=== PATIENT | female | born 1980 | race Caucasian/White ===

== ENCOUNTER 2023-08-05 09:30 | Outpatient (RCR) | payer MEDICAID, SELFPAY | END 2024-03-01 09:00 | disposition home or self-care (01) | LOC: HO.WCC 09:30 | PROVIDERS: PCP Internal Medicine Geriatric Medicine; Visit Provider Surgery | DX: E11.622 Type 2 diabetes mellitus with other skin ulcer (principal); L97.922 Non-pressure chronic ulcer of unspecified part of left lower leg with fat layer exposed; I87.332 Chronic venous hypertension (idiopathic) with ulcer and inflammation of left lower extremity; L93.0 Discoid lupus erythematosus | CPT/HCPCS: 11042; 11045; 15271; 15272; 15275; 29580; 97597; 99212; Q4101 ==

== ENCOUNTER 2024-03-15 11:51 | Outpatient (REF) | payer MEDICAID, SELFPAY ==
[2024-03-15 14:53] LABS: CT PCR NOT DETECTED (Not Detect.); NG PCR NOT DETECTED (Not Detect.)
[2024-03-20 09:12] LABS: Fentanyl, Ur NEGATIVE; Norfentanyl, Ur NEGATIVE
== END 2024-03-15 11:52 | disposition home or self-care (01) ==
LOC: HO.HHCL 11:51
PROVIDERS: Visit Provider Internal Medicine Geriatric Medicine
DX: F11.20 Opioid dependence, uncomplicated (principal); Z11.3 Encounter for screening for infections with a predominantly sexual mode of transmission
CPT/HCPCS: 0353U; 80353; 80354

== ENCOUNTER 2024-04-17 | Outpatient (REF) | payer MEDICAID, SELFPAY ==
[2024-04-19 12:58] LABS: HPV mRNA E6/E7 Not Detected (Not Detected)
[2024-04-25 13:05] LABS: Trichomonas (NAAT) NOT DETECTED
[2024-04-25 13:06] LABS: C. trachomatis RNA TMA NOT DETECTED; N. gonorrhoeae RNA TMA NOT DETECTED
== END 2024-04-17 00:01 | disposition home or self-care (01) ==
LOC: HO.LNP
PROVIDERS: Visit Provider Advanced Practice Midwife
DX: Z12.4 Encounter for screening for malignant neoplasm of cervix (principal); Z11.3 Encounter for screening for infections with a predominantly sexual mode of transmission; Z11.51 Encounter for screening for human papillomavirus (HPV)
CPT/HCPCS: 87491; 87591; 87624; 87661; 88175

== ENCOUNTER 2024-05-01 13:22 | Outpatient (REF) | payer MEDICAID, SELFPAY ==
--- NOTE | ~2024-05-01 | XR_ITS ---
EXAMINATION: XR CHEST CLINICAL INFORMATION: Shortness of breath. COMPARISON: CXR from 01/14/2012. Abdomen CT from 11/22/2018. TECHNIQUE: 2 views of the chest were obtained. FINDINGS: There is bullous emphysema of the upper lobes. The chronic interstitial disease has a mid to lower lung zone predominance. The small cystic-appearing lucencies correspond to the honeycombing seen in posterior lower lobes on 11/22/2018. Note that it would be difficult to detect any acute infiltrates against the background of the chronic interstitial disease. No evidence of pulmonary mass, overt consolidation or pleural effusion. Cardiac silhouette has normal size and contour. The visualized skeletal structures and the visualized upper abdomen are unremarkable. XR/XR chest 2V IMPRESSION: * Bullous emphysema of the upper lobes. * Chronic interstitial lung disease. Note that it would be difficult to radiographically exclude any acute pneumonitis against the background of the chronic disease.
== END 2024-05-01 13:23 | disposition home or self-care (01) ==
LOC: HO.HHCX 13:22
PROVIDERS: Visit Provider Student in an Organized Health Care Education/Training Program
DX: R06.02 Shortness of breath (principal); J44.9 Chronic obstructive pulmonary disease, unspecified
CPT/HCPCS: 71046

== ENCOUNTER 2024-11-20 12:30 | Outpatient (REF) | payer MEDICAID, SELFPAY ==
--- OUTSIDE RECORDS SUMMARY | 2024-11-20 16:13 | XMS_ITS | Encounter Summary ---
Author Organization [employer] Address [address] [facility] [address]t [place] [address] Care Team Providers Care Nickel Plant Operator Name Role Phone Name, Terence MARIA Primary Care Provider [phone] Reason for Visit * Reason Onset Date Comments VNA Orders 02/26/2023 Vitamin Deficiency 02/26/2023 Pt no show to hospital follow up appointment. Encounter Details Date Type Department Care Team ([facility] st Contact Info) Description 02/26/2023 Telephone [facility] MEDICINE [address] [place], [place] [phone] Name, MD Terence [address] [place], [place] [phone] VNA Orders; Vitamin Deficiency (Pt no show [...] 8:16 AM EDT Tc princess Urrutia at [facility] calling in regards to snf wound care orders. Ghada would like to know if PCP will sign orders due today. Patient was last seen with Dr. Law 07/08/20. Patient does have an upcoming PE appt on 03/09/23. documented in this encounter Plan of Treatment Upcoming Encounters Date Type Department Care Team (Late st Contact Info) Description 11/27/2024 10:45 AM EST Office Visit [facility] MEDICINE [address] [place] [address] Name, MD Terence [address] [place] [address] documented as of this encounter Visit Diagnoses Not on filedocumented in this encounter Care Teams Nickel Plant Operator Relationship Specialty Start Date End Date Name, MD Terence [address] [place] [address] PCP - General Family Medicine 01/13/16 documented as of this encounter
--- OUTSIDE RECORDS SUMMARY | 2024-11-20 16:14 | XMS_ITS | Encounter Summary ---
Author Organization [employer] Address [address] [facility] [address] [place] [address] Care Team Providers Care Brickmason Contractor Name Role Phone Name, Terence MARIA Primary Care Provider [phone] Reason for Visit * Reason Onset Date Comments DME-grab bars , raised toilet seat 10/23/2024 Encounter Details Date Type Department Care Team ([facility] [place] Contact Info) Description 10/23/2024 Telephone [facility] MEDICINE [address] [place], [place] [phone] Alphonse De Luna MA DME-grab bars , [...] please advise them to contact Felicita at [phone]. documented in this encounter Plan of Treatment Upcoming Encounters Date Type Department Care Team (Late st Contact Info) Description 11/27/2024 10:45 AM EST Office Visit [facility] MEDICINE [address] [place] [address] Name, MD Terence [address] [place] [address] documented as of this encounter Visit Diagnoses Not on filedocumented in this encounter Additional Health Concerns Assessment Noted Time PHQ-9 Depression Total Score: 14 024 2:43 PM EST documented as of this encounter Care Teams Brickmason Contractor Relationship Specialty Start Date End Date Name, MD Terence [address] [place] [address] PCP - General Family Medicine 01/13/16 documented as of this encounter
--- OUTSIDE RECORDS SUMMARY | 2024-11-20 16:14 | XMS_ITS | Encounter Summary ---
Author Organization [employer] Address [address] [facility] [address] [place] [address] Care Team Providers Care Braddisher Name Role Phone Name, Terence MARIA Primary Care Provider [phone] Reason for Visit * Reason Onset Date Comments Med Refill 11/04/2023 Encounter Details Date Type Department Care Team ([facility] st Contact Info) Description 11/04/2023 Telephone [facility] MEDICINE [address] [place], [place] [phone] Name, MD Terence [address] [place] [address] Med Refill Social History Tobacco Use Types Packs/Day Years Used Date Smoking Tobacco: Former Cigarettes Smokeless Tobacco: Never Depression Answer Date Recorded Patient Health Questionnaire-9 Score 0 03/09/2023 Housing Stability Answer Date Recorded What is your housing situation today? I do not have housing (Staying with others, in a hotel, in a longterm, living outside on the street, on a [...] 8:47 AM EST T/C to pt. Through [employer] id - [id number] to schedule apt. No answer. LVM to call back [phone]. * Telephone Encounter - Adrienne Olivia LPN [...] 40 MG tablet To be sent to: [facility]/pharmacy #[id number] documented in this encounter Plan of Treatment Upcoming Encounters Date Type Department Care Team (Late st Contact Info) Description 11/27/2024 10:45 AM EST Office Visit [facility] MEDICINE [address] [place] [address] Name, MD Terence [address] [place] [address] documented as of this encounter Visit Diagnoses Not on filedocumented in this encounter Additional Health Concerns Assessment Noted Time PHQ-9 Depression Total Score: 0 03/09/20 23 2:42 PM EDT documented as of this encounter Care Teams Braddisher Relationship Specialty Start Date End Date Name, [place] [address] PCP - General Family Medicine 01/13/16 documented as of this encounter
--- OUTSIDE RECORDS SUMMARY | 2024-11-20 16:14 | XMS_ITS | Encounter Summary ---
Author Organization [employer] Address [address] [facility] [address] [place] [address] Care Team Providers Care Commercial Litigation Paralegal Name Role Phone Name, Terence MARIA Primary Care Provider [phone] Encounter Details Date Type Department Care Team (Late st Contact Info) Description 10/27/2024 Refill [facility] MEDICINE [address] [place], [place] [phone] Magdalene Gonzalez, coin counter and wrapper pain syndrome Social History Tobacco Use Types [...] a wound on her leg that her IMAGING TECHNOLOGIST takes care of. Pt denies current drainage, redness, heat, or swelling. Reports her IMAGING TECHNOLOGIST monitors for infection and changes the dressing [...] for review. Advised pt to go to [facility] for any redness, heat, swelling, odor, abnormal drainage from wound or for any urgent needs. Pt verbalized understanding and reports no further questions or concerns at this time. documented in this encounter Plan of Treatment Upcoming Encounters Date Type Department Care Team (Late st Contact Info) Description 11/27/2024 10:45 AM EST Office Visit [facility] MEDICINE [address] [place] [address] Name, MD Terence [address] [place] [address] documented as of this encounter Visit Diagnoses Diagnosis Chronic pain syndrome documented in this encounter Additional Health Concerns Assessment Noted Time PHQ-9 Depression Total Score: 14 024 2:43 PM EST documented as of this encounter Care Teams Commercial Litigation Paralegal Relationship Specialty Start Date End Date Name, MD Terence [address] [place] [address] PCP - General Family Medicine 01/13/16 documented as of this encounter
--- OUTSIDE RECORDS SUMMARY | 2024-11-20 16:14 | XMS_ITS | Encounter Summary ---
Author Organization [employer] Address [address] [place] [address] Care Team Providers Care Mail List Processor Name Role Phone Name, Terence MARIA Primary Care Provider [phone] Encounter Details Date Type Department Care Team ([facility] st Contact Info) Description 08/30/2023 Telephone [facility] MEDICINE [address] [place], [place] [phone] Name, MD Terence [address] [place], [place] [phone] Social History Tobacco Use Types Packs/Day Years Used Date Smoking Tobacco: Former Cigarettes Smokeless Tobacco: Never Depression Answer Date Recorded Patient Health Questionnaire-9 Score 0 03/09/2023 Housing Stability Answer Date Recorded What is your housing situation today? I do not have housing (Staying with others, in a hotel, in a chcf, living outside on the street, on a [...] 03/09 PE notes to be faxed to [phone]. States she faxed a release form to medical records and has not received anything back. Any questions, please contact yumiko at [phone] documented in this encounter Plan of Treatment Upcoming Encounters Date Type Department Care Team (Late st Contact Info) Description 11/27/2024 10:45 AM EST Office Visit [facility] MEDICINE [address] [place] [address] Name, MD Terence [address] [place] [address] documented as of this encounter Visit Diagnoses Not on filedocumented in this encounter Additional Health Concerns Assessment Noted Time PHQ-9 Depression Total Score: 0 03/09/20 2:42 PM EDT documented as of this encounter Care Teams Mail List Processor Relationship Specialty Start Date End Date Name, MD Terence [address] [place] [address] PCP - General Family Medicine 01/13/16 documented as of this encounter
--- OUTSIDE RECORDS SUMMARY | 2024-11-20 16:14 | XMS_ITS | Clinical Summary ---
Author Organization [employer] Address [address] [facility] 7t [place] [address] Care Team Providers Care Product Sales Engineer Name Role Phone Name, Terence MARIA Primary Care Provider [phone] Allergies No known active allergies Medications * [...] Type Department Care Team Description 11/07/[address] [address] Terence Law MD Durable Medical Equipment 10/27/[address] [address] Magdalene Gonzalez RN Chronic pain syndrome 10/25/[address] [address] Terence Law MD Call Back Request 10/25/[address] [address] Terence Law MD 10/23/[address] [address] Alphonse De Luna MA DME-grab bars , raised toilet seat 10/09/[address] [address] Alphonse De Luna MA Dme-grab bars, rasied toilet 10/02/[address] [address] Alphonse De Luna MA Nov Recall\ from [...] Description 11/27/2024 10:45 AM EST Office Visit [facility] [address] [place] [address] Name, MD Terence Kemar [facility] [place] [address] Health Maintenance Due Date Last Done Comments [...] (04/17/2024 11:13 AM EDT) HPV 16 RNA [facility] HPV 18/45 RNA [facility] HPV nRNA E6/E7 Not Detected Not Detected [facility] Comment:Methodology: Transcr iption-Mediated AmplificationThis assay detects E6/E7 viral messenger RNA (mRNA) from 14high-risk HPV types (16,18,31,33,35,39,45,51,52,56,58,59,66,68).Cervical sources are required for HPV testing.If a vaginal source from a patient who has had atotal hysterectomy with removal of cervix wassubmitted, please contact the testing laboratoryfor alternative testing options.For additional information, please refer tohttp://education.HD Fantasy Football/faq/JNQ536m0(This link if provided for information/educational purposes only.)THIS TEST WAS PERFORMED AT:[employer] [place] [phone] DENT MD SOURCE: SEE NOTE [facility] Comment:Cervix Report Status: [facility] Clinical Information: SEE NOTE [facility] Comment:ROUTINE LMP: SEE NOTE [facility] Comment:NONE GIVEN Prev. PAP: SEE NOTE [facility] Comment:NONE GIVEN Prev. BX: SEE NOTE [facility] Comment:NONE GIVEN Statement Of Adequacy: SEE NOTE [facility] Comment:Satisfactory for flores luation.Endocervical/transformation zone componentpresent. General Categorization: [facility] Interpretation/Result: SEE NOTE [facility] Comment:Cytology Results: Ne gative for intraepitheliallesion or malignancy. Cytology Comment SEE NOTE [facility] Comment:This Pap test has be en evaluated with computerassisted technology. Windows Software Developer: SEE NOTE [facility] Comment:YP, CT(ASCP)CT scree kaela location: [place] [address] Review Windows Software Developer: [facility] Pathologist [facility] PAP Infection SEE NOTE [facility] Comment:Shift in vaginal leonard ra suggestive of bacterialvaginosis. See Note SEE NOTE [facility] Comment:EXPLANATORY NOTE:The Pap is a screening test for cervical cancer. It isnot a diagnostic test and is subject to false negativeand false positive results. It is most reliable when asatisfactory sample, regularly obtained, is submittedwith relevant clinical findings and history, and whenthe Pap result is evaluated along with historic andcurrent clinical information. 04/17/2024 11:1 3 AM EDT 04/17/2024 4:19 PM EDT Narrative [facility] - 04/25/2024 1:06 PM EDT SEE SCANNED RESULTS IN EMRRCEREVIX us Arin Palomino CNM LAB PATHOLOGY ORDERABLES Final Result [facility] [address] [place] [address] [phone] from Last 3 Months or Most Recently Relevant to Health Maintenance Insurance [facility] C3 * Guarantor: Maddie Dobbins Account Type Relation to Patient Date of Phone Billing Address Personal/Family Self [address] [place] Care Teams Product Sales Engineer Relationship Specialty Start Date End Date Name, MD Terence [address] [place] [address] [place] [address] PCP - General Family Medicine 01/13/16
--- OUTSIDE RECORDS SUMMARY | 2024-11-20 16:14 | XMS_ITS | Encounter Summary ---
Author Organization [employer] Address [address] 7t [place] [address] Care Team Providers Care Boat Loader Helper Name Role Phone Name, Terence MARIA Primary Care Provider [phone] Encounter Details Date Type Department Care Team ([facility] st Contact Info) Description 04/21/2024 Orders Only [facility] [address] [place], [place] [phone] Arin Palomino CN [address] [place], [place] [phone] Social History Tobacco Use Types Packs/Day Years [...] t he electric, gas, oil or water [employer] threatened to shut off services in your [...] Description 11/27/2024 10:45 AM EST Office Visit [facility] [address] [place] [address] Name, MD Terence [address] [place] [address] documented as of this encounter Visit Diagnoses Not on filedocumented in this encounter Additional Health Concerns Assessment Noted Time PHQ-9 Depression Total Score: 14 024 2:43 PM EST documented as of this encounter Care Teams Boat Loader Helper Relationship Specialty Start Date End Date Name, MD Terence [address] [place] [address] PCP - General Family Medicine 01/13/16 documented as of this encounter
--- OUTSIDE RECORDS SUMMARY | 2024-11-20 16:14 | XMS_ITS | Encounter Summary ---
Author Organization [employer] [facility] Address [address] [place] [address] 7 [place] [address] Care Team Providers Care Desk Monitor Name Role Phone Name, Terence MARIA Primary Care Provider [phone] Reason for Visit * Reason Comments Med Refill Encounter Details Date Type Department Care Team ([facility] Contact Info) Description 12/21/2022 Refill [facility] [address] [place] [address] NameTerence MD [address] [place] [address] Anxiety Social History Tobacco Use Types Packs/Day [...] Upcoming Encounters Date Type Department Care Team ([facility] Contact Info) Description 11/27/2024 10:45 AM EST Office Visit [facility] [address] [place] [address] Terence Law MD [address] [place] [address] documented as of this encounter Visit Diagnoses Diagnosis Anxiety Anxiety state, unspecified documented in this encounter Care Teams Desk Monitor Relationship Specialty Start Date End Date Terence Law MD [address] [place] [address] PCP - General Family Medicine 01/13/16 documented as of this encounter
--- OUTSIDE RECORDS SUMMARY | 2024-11-20 16:14 | XMS_ITS | Encounter Summary ---
Author Organization [employer] Address [address] [facility] 7t [place] [address] Care Team Providers Care Rn Orthopedic Name Role Phone Name, Terence MARIA Primary Care Provider [phone] Reason for Visit * Reason Onset Date Comments Call Back Request 10/25/2024 Encounter Details Date Type Department Care Team ([facility] Contact Info) Description 10/25/2024 Telephone [facility] [address] [place], [place] [phone] Name, MD Terence [address] [place], [place] [phone] Call Back Request Social History Tobacco Use [...] PM EST Call returned to pt via [employer] #[id number] for status check based on message below. No answer, v/m left to return call to [place] team nurses. * Telephone Encounter - Martín Junior - 10/25/2024 11:58 AM EST Tc from pt requesting call back to discuss current condition stating she feels there might be more going on. Pt stated no immediate concerns would like to speak with someone. Please contact pt at [phone]. (Kyrgyz Speaker) documented in this encounter Plan of Treatment Upcoming Encounters Date Type Department Care Team (Late st Contact Info) Description 11/27/2024 10:45 AM EST Office Visit [facility] [address] [place] [address] Name, MD Terence [address] [place] [address] documented as of this encounter Visit Diagnoses Not on filedocumented in this encounter Additional Health Concerns Assessment Noted Time PHQ-9 Depression Total Score: 14 024 2:43 PM EST documented as of this encounter Care Teams Rn Orthopedic Relationship Specialty Start Date End Date Name, MD Terence [address] [place] [address] PCP - General Family Medicine 01/13/16 documented as of this encounter
--- OUTSIDE RECORDS SUMMARY | 2024-11-20 16:14 | XMS_ITS | Encounter Summary ---
Author Organization [employer] Address [address] [facility] 7t [place] [address] Care Team Providers Care Temporary Staff Accountant Name Role Phone Name, Terence MARIA Primary Care Provider [phone] Reason for Visit * Reason Onset Date Comments Medication Question 12/16/2023 Encounter Details Date Type Department Care Team ([facility] st Contact Info) Description 12/16/2023 Telephone [facility] [address] [place], [place] [phone] Name, MD Terence [address] [place], [place] [phone] Medication Question Social History Tobacco Use Types [...] t he electric, gas, oil or water [employer] threatened to shut off services in your [...] T/C to pt. To inform pt. Through [employer] interpreters id - [id number] to inform that PCP has to see her to give clonazepam medication. No answer. LVM to call back on [phone]. * Telephone Encounter - Shyam Anderson RN - 12/17/2023 2:45 PM EST T/C to pt. Through Proper Clothers id - [id number] for below message, pt. States she used [...] clonazepam and is requesting status on med. Water Hauler advised pt is scheduled for 01/10/24 to further discuss with PCP however pt stated appt is too far out. Please contact at [phone] documented in this encounter Plan of Treatment Upcoming Encounters Date Type Department Care Team (Late st Contact Info) Description 11/27/2024 10:45 AM EST Office Visit [facility] [address] [place] [address] Name, MD Terence [address] [place] [address] documented as of this encounter Visit Diagnoses Not on filedocumented in this encounter Additional Health Concerns Assessment Noted Time PHQ-9 Depression Total Score: 14 024 2:43 PM EST documented as of this encounter Care Teams Temporary Staff Accountant Relationship Specialty Start Date End Date Name, MD Terence [address] [place] [address] PCP - General Family Medicine 01/13/16 documented as of this encounter
--- OUTSIDE RECORDS SUMMARY | 2024-11-20 16:14 | XMS_ITS | Encounter Summary ---
Author Organization [employer] [facility] Address [address] [place] [address] [place] [address] Care Team Providers Care Industrial Technician Name Role Phone Name, Terence MARIA Primary Care Provider [phone] Reason for Visit * Reason Comments Med Refill Encounter Details Date Type Department Care Team ([facility] Contact Info) Description 07/09/2023 Refill [facility] [address] [place] [phone] Cony Rodríguez FNP [address] [place] [address] Dept [place] [address] Anxiety Social History Tobacco Use Types Packs/Day [...] Office Visit [facility] [address] [place] [address] [phone] Name, MD Terence [address] [place] [address] documented as of this encounter Visit Diagnoses Diagnosis Anxiety Anxiety state, unspecified documented in this encounter Additional Health Concerns Assessment Noted Time PHQ-9 Depression Total Score: 0 03/09/20 2:42 PM EDT documented as of this encounter Care Teams Industrial Technician Relationship Specialty Start Date End Date Name, MD Terence [address] [place] [address] PCP - General Family Medicine 01/13/16 documented as of this encounter
--- OUTSIDE RECORDS SUMMARY | 2024-11-20 16:14 | XMS_ITS | Encounter Summary ---
Author Organization [employer] Address [address] [facility] [facility] [address] 7t [place] [address] Care Team Providers Care Therapeutic Recreation Assistant Name Role Phone Name, Terence MARIA Primary Care Provider [phone] Encounter Details Date Type Department Care Team (Late st Contact Info) Description 11/08/2023 Orders Only [facility] [address] [place], [place] [phone] Ada Bridges RN Uncomplicated opioid dependence (CMS/HCC) Social History Tobacco Use Types Packs/Day Years Used Date Smoking Tobacco: Every Day Cigarettes Smokeless Tobacco: Never Depression Answer Date Recorded Patient Health Questionnaire-9 Score 0 03/09/2023 Housing Stability Answer Date Recorded What is your housing situation today? I do not have housing (Staying with others, in a hotel, in a snf, living outside on the street, on a [...] Description 11/27/2024 10:45 AM EST Office Visit [facility] [address] [place] [address] Name, MD Terence [address] [place] [address] Scheduled Orders Name Type Priority Associated Diagnoses [...] with Reflexes Lab Routine Uncomplicated opioid dependence ([facility]) Expected: 11/08/2023 (Approximate), Expires: 11/08/2024 Syphilis Screen Lab Routine Uncomplicated opioid dependence ([facility]) Expected: 11/08/2023 (Approximate), Expires: 11/08/2024 T-SPOT??.TB Lab Routine Uncomplicated opioid dependence ([facility]) Expected: 11/08/2023 (Approximate), Expires: 11/08/2024 documented as of this encounter Procedures Procedure Name Priority Date/Time Associated Diagnosis Comments THINPREP IMAGING PAP AND HPV MRNA E6/E7 WITH REFLEX TO HPV 16,18/45 Routine 04/17/2024 11:13 AM EDT Uncomplicated opioid dependence ([facility]) documented in this encounter Results * ThinPrep Imaging Pap and HPV mRNA E6/E7 with Reflex to HPV 16,18/45 (04/17/2024 11:13 AM EDT) HPV 16 RNA [facility] HPV 18/45 RNA [facility] HPV nRNA E6/E7 Not Detected Not Detected [facility] Comment:Methodology: Transcr iption-Mediated AmplificationThis assay detects E6/E7 viral messenger RNA (mRNA) from 14high-risk HPV types (16,18,31,33,35,39,45,51,52,56,58,59,66,68).Cervical sources are required for HPV testing.If a vaginal source from a patient who has had atotal hysterectomy with removal of cervix wassubmitted, please contact the testing laboratoryfor alternative testing options.For additional information, please refer tohttp://education.Q Design/faq/SBL910h6(This link if provided for information/educational purposes only.)THIS TEST WAS PERFORMED AT:[employer] [place] [phone] DENT MD SOURCE: SEE NOTE [facility] Comment:Cervix Report Status: [facility] Clinical Information: SEE NOTE [facility] Comment:ROUTINE LMP: SEE NOTE [facility] Comment:NONE GIVEN Prev. PAP: SEE NOTE [facility] Comment:NONE GIVEN Prev. BX: SEE NOTE [facility] Comment:NONE GIVEN Statement Of Adequacy: SEE NOTE [facility] Comment:Satisfactory for flores luation.Endocervical/transformation zone componentpresent. General Categorization: [facility] Interpretation/Result: SEE NOTE [facility] Comment:Cytology Results: Ne gative for intraepitheliallesion or malignancy. Cytology Comment SEE NOTE [facility] Comment:This Pap test has be en evaluated with computerassisted technology. Internist: SEE NOTE [facility] Comment:YP, CT(ASCP)CT scree kaela location: [place] [address] Review Internist: [facility] Pathologist [facility] PAP Infection SEE NOTE [facility] Comment:Shift in vaginal leonard ra suggestive of bacterialvaginosis. See Note SEE NOTE [facility] Comment:EXPLANATORY NOTE:The Pap is a [...] AM EDT 04/17/2024 4:19 PM EDT Narrative [facility] - 04/25/2024 1:06 PM EDT SEE SCANNED RESULTS IN EMRRCEREVIX us Arin FONTANA LAB PATHOLOGY ORDERABLES Final Result [facility] [address] [place] [address] [phone] documented in this encounter Visit Diagnoses Diagnosis Uncomplicated opioid dependence (CMS/HCC) documented in this encounter Additional Health Concerns Assessment Noted Time PHQ-9 Depression Total Score: 0 03/09/20 23 2:42 PM EDT documented as of this encounter Care Teams Therapeutic Recreation Assistant Relationship Specialty Start Date End Date Name, MD Terence [address] [place] [address] PCP - General Family Medicine 01/13/16 documented as of this encounter
--- OUTSIDE RECORDS SUMMARY | 2024-11-20 16:14 | XMS_ITS | Encounter Summary ---
Author Organization [employer] Address [address] [facility] 7t [place] [address] Care Team Providers Care Fire Extinguisher Repairer Inspector Name Role Phone Name, Terence MARIA Primary Care Provider [phone] Reason for Visit * Reason Onset Date Comments Durable Medical Equipment 11/07/2024 Encounter Details Date Type Department Care Team ([facility] st Contact Info) Description 11/07/2024 Telephone [facility] [address] [place], [place] [phone] Name, MD Terence [address] [place], [place] [phone] Durable Medical Equipment Social History Tobacco Use [...] 11/27/2024 10:45 AM EST Office Visit [facility]INE [address] [place] [address] Name, MD Terence [address] [place] [address] documented as of this encounter Visit Diagnoses Not on filedocumented in this encounter Additional Health Concerns Assessment Noted Time PHQ-9 Depression Total Score: 14 024 2:43 PM EST documented as of this encounter Care Teams Fire Extinguisher Repairer Inspector Relationship Specialty Start Date End Date NameTerence MD [address] [place] [address] PCP - General Family Medicine 01/13/16 documented as of this encounter
--- OUTSIDE RECORDS SUMMARY | 2024-11-20 16:14 | XMS_ITS | Encounter Summary ---
Author Organization [employer] Address [address] [facility] [address] 7t [place] [address] Care Team Providers Care Equipment Manager Name Role Phone Name, Terence MARIA Primary Care Provider [phone] Encounter Details Date Type Department Care Team ([facility] st Contact Info) Description 10/25/2024 Telephone [facility] [address] [place], [place] [phone] Name, MD Terence [address] [place], [place] [phone] Social History Tobacco Use Types Packs/Day Years [...] Miscellaneous Notes * Telephone Encounter - Puneet Chowdhury RN - 10/25/2024 11:30 AM EST DME for bath tub wall rail from [employer] and willy placed on PCP desk for signature. documented in this encounter Plan of Treatment Upcoming Encounters Date Type Department Care Team (Late st Contact Info) Description 11/27/2024 10:45 AM EST Office Visit [facility] [address] [place] [address] Name, MD Terence [address] [place] [address] documented as of this encounter Visit Diagnoses Not on filedocumented in this encounter Additional Health Concerns Assessment Noted Time PHQ-9 Depression Total Score: 14 024 2:43 PM EST documented as of this encounter Care Teams Equipment Manager Relationship Specialty Start Date End Date Name, MD Terence [address] [place] [address] PCP - General Family Medicine 01/13/16 documented as of this encounter
[2024-11-21 01:27] LABS: CT PCR NOT DETECTED (Not Detect.); NG PCR NOT DETECTED (Not Detect.)
== END 2024-11-20 12:31 | disposition home or self-care (01) ==
LOC: HO.LNP 12:30
PROVIDERS: PCP Internal Medicine Geriatric Medicine; Visit Provider Obstetrics & Gynecology
DX: N93.9 Abnormal uterine and vaginal bleeding, unspecified (principal); L91.8 Other hypertrophic disorders of the skin
CPT/HCPCS: 87491; 87591; 99202

== ENCOUNTER 2024-11-20 12:30 | Outpatient (AMB) | payer MEDICAID, SELFPAY ==
--- NOTE | 2024-11-20 12:39 | A.OFFVIS_ITS ---
Vital Signs 11/20/24 12:47 Height 5 ft 3 in Weight 186 lb BMI 32.9 BP 126/72 Intake Visit Reasons: Labial Skin Tag/Referral/2nd appt Transfer Station Operator: Transfer Station Operator Present (Santa) Accompanied by: Self / Same As Patient Allergies No Known Allergies [NKA] Allergy (Verified 11/20/24 12:45) HPI Comments Details: Presenting referred from [facility] regarding left labia minora skin tag for excisions since it is causing irritation to the patient .In addition, the patient is complaining of irregular menstrual cycles with the last few months Last co testing was in 05/10 was negative No previous screening mammogram [facility] Medical History Arthritis Lupus (systemic lupus erythematosus) Raynaud disease Family History Sister Breast cancer Female Reproductive History Menstrual Age of Menarche: 13 Date of last menstrual period: 11/19/24 Total pregnancies: 5 Full term: 4 Review of Systems Const All systems reviewed & are unremarkable except as noted in HPI and below Card Reports as per HPI Resp Reports as per HPI GI Reports as per HPI and Reports no additional complaints Reports as per HPI Physical Exam Vital Signs: Last Vital Signs BP 126/72 11/20/24 12:47 BMI result Body Mass Index 32.9 Const General: cooperative, healthy appearing and comfortable Chest Chest palpation & inspection: normal inspection of the chest and normal palpation of entire chest wall Breast/axilla inspection: normal inspection of the breasts and normal inspection of the axillae Breast/axilla palpation: normal palpation of the breasts, normal palpation of the axillae and no axillary lymphadenopathy Resp Effort & Inspection: normal respiratory effort Auscultation: clear to auscultation bilaterally Percussion: percussion normal Cardio Palpation: normal PMI Rate: regular rate Rhythm: regular rhythm Heart sounds: no murmurs and no rubs Peripheral pulses: Peripheral pulses 2+ throughout GI Inspection: Yes normal to inspection Palpation (GI): Soft to palpation, nontender, no guarding, not rigid and No hepatosplenomegaly present Percussion: Yes normal to percussion Auscultation: normal bowel sounds Rectal Exam - Female: deferred General: Yes bladder normal to palpation External Female Exam: lesion (Left labia minora skin tag) Speculum Exam - Vagina: normal appearance of the vagina, normal palpation, normal vaginal discharge and not erythematous Speculum Exam - Cervix: normal appearance of the cervix and normal palpation Bimanual exam- vagina & uterus: normal bimanual exam, normal palpation, uterine size normal, bladder normal to palpation, consistency normal and normal palpation Bimanual Exam- Adnexa, other: normal adnexae, no masses and no tenderness Assessment & Plan Assessment & Plan (1) Abnormal uterine bleeding (AUB): Code(s): N93.9 - Abnormal uterine and vaginal bleeding, unspecified Category: Medical Plan: Screening mammogram, GC and chlamydia taken CBC, TSH, HCG, FSH/LH and pelvic ultrasound ordered. Discussed with the patient the different causes of abnormal bleeding including thyroid disorders, uterine and ovarian pathology, endometrial hyperplasia, carcinoma and other potential causes. Discussed with the patient the work up including CBC (to r/o anemia), TSH, FSH/LH, pelvic Ultrasound, endometrial biopsy to r/o endometrial pathology. All questions answered and the patient verbalized understanding. Instructed the patient to schedule an appointment for an endometrial biopsy in 2 weeks. (2) Skin tag: Comment: Left labia minora Code(s): L91.8 - Other hypertrophic disorders of the skin Category: Medical Plan: Discussed with the patient the finding on pelvic exam, skin tag of left labia minora, the patient is requesting to have it excised. Instructions given the patient to schedule an appointment for excision of skin tag of left labia minora. All questions answered, the patient verbalized understanding. Orders: Orders HCG Quantitative Today N93.9 - Abnormal uterine and vaginal bleeding, unspecified Follicle Stimulating Hormone Today N93.9 - Abnormal uterine and vaginal bleeding, unspecified Complete Blood Count no Diff Today N93.9 - Abnormal uterine and vaginal bleeding, unspecified US pelvic and transvaginal Today N93.9 - Abnormal uterine and vaginal bleeding, unspecified TSH reflex Free T4 Today N93.9 - Abnormal uterine and vaginal bleeding, unsp ecified MM screening mammo BI Today Z12.31 - Encounter for screening mammogram for malignant neoplasm of breast Lutenizing Hormone Today N93.9 - Abnormal uterine and vaginal bleeding, unspecified Coding Level of Care Code New Pt Level 3 (09936) Diagnoses Abnormal uterine bleeding (AUB) N93.9 Skin tag L91.8
[2024-11-20 12:47] VITALS: BP 126/72; BMI 32.9
--- OUTSIDE RECORDS SUMMARY | 2024-11-20 13:50 | XMS_ITS | Encounter Summary ---
Author Organization [facility] Address [address] [place] [address] [place] [address] Care Team Providers Care Bakery Assistant Name Role Phone Name, Terence MARIA Primary Care Provider [phone] Reason for Visit * Reason Comments Med Refill Encounter Details Date Type Department Care Team ([facility] Contact Info) Description 07/09/2023 Refill [facility] MED[facility] [address] [place] [address] [phone] Cony Rodríguez FNP [address] [place] [address] [place] [address] Anxiety Social History Tobacco Use Types Packs/Day Years Used Date Smoking Tobacco: Former Cigarettes Smokeless Tobacco: Never Depression Answer Date Recorded Patient Health Questionnaire-9 Score 0 03/09/2023 Depression Answer Date Recorded Patient Health Questionnaire-2 Score 0 03/09/2023 Comments Unknown Sex and Gender Information Value Date Recorded Sex Assigned at Female 08/17/2022 10:14 AM EDT Legal Sex Female 10:14 AM EDT Gender Identity Female 08/17/2022 10:14 AM EDT Sexual Orientation Straight 08/17/2022 10 :14 AM EDT documented as of this encounter Plan of Treatment Upcoming Encounters Date Type Department Care Team (Late Contact Info) Description 11/27/2024 10:45 AM EST Office Visit [facility] [address] [place] [address] [phone] Name, MD Terence [address] [place] [address] documented as of this encounter Visit Diagnoses Diagnosis Anxiety Anxiety state, unspecified documented in this encounter Additional Health Concerns Assessment Noted Time PHQ-9 Depression Total Score: 0 03/09/20 2:42 PM EDT documented as of this encounter Care Teams Bakery Assistant Relationship Specialty Start Date End Date Name, MD Terence [address] [place] [address] PCP - General Family Medicine 01/13/16 documented as of this encounter
--- OUTSIDE RECORDS SUMMARY | 2024-11-20 13:50 | XMS_ITS | Encounter Summary ---
Author Organization [employer] Address [address] [facility] [address] 7t [place] [address] Care Team Providers Care Cement Worker Name Role Phone Name, Terence MARIA Primary Care Provider [phone] Encounter Details Date Type Department Care Team ([facility] st Contact Info) Description 08/30/2023 Telephone [facility] [address] [place], [place] [phone] Name, MD Terence [address] [place], [place] [phone] Social History Tobacco Use Types Packs/Day Years Used Date Smoking Tobacco: Former Cigarettes Smokeless Tobacco: Never Depression Answer Date Recorded Patient Health Questionnaire-9 Score 0 03/09/2023 Housing Stability Answer Date Recorded What is your housing situation today? I do not have housing (Staying with others, in a hotel, in a residential, living outside on the street, on a beach, in a car, or in a park 07/26/[address] you li ve. Do you have problems with any of the following? Pests such as bugs, ants, or mice 07/26/2023 Food Insecurity Answer Date Recorded Within the past 12 months, y ou worried that your food would run out before you got money to buy more: Often true 2023 Within the past 12 months,th e food you bought just didn't last and you didn't have enough money to get more: Often true Transportation Answer Date Recorded In the past 12 months, has l ack of transportation kept you from medical appts, meetings, work or from getting things needed for daily living? No 2023 Utilities Answer Date Recorded In the past 12 months, has t he electric, gas, oil or water company threatened to shut off services in your home? No 2023 Depression Answer Date Recorded Patient Health Questionnaire-2 Score 0 03/09/2023 Comments Unknown Sex and Gender Information Value Date Recorded Sex Assigned at Female 08/17/2022 10:14 AM EDT Legal Sex Female 10:14 AM EDT Gender Identity Female 08/17/2022 10:14 AM EDT Sexual Orientation Straight 08/17/2022 10 :14 AM EDT documented as of this encounter Miscellaneous Notes * Telephone Encounter - Collette Lopez - 08/31/2023 3:57 PM EST Tc from [facility] requesting status on message below. * Telephone Encounter - Courtney Walker - 08/30/2023 2:59 PM EST Tc from [facility] with [facility] requesting 07/27 OV notes and 03/09 PE notes to be faxed to [phone]. States she faxed a release form to medical records and has not received anything back. Any questions, please contact [facility] at [phone] documented in this encounter Plan of Treatment Upcoming Encounters Date Type Department Care Team (Late st Contact Info) Description 11/27/2024 10:45 AM EST Office Visit [facility] [address] [place] [phone] Name, MD Terence [address] [place] [address] documented as of this encounter Visit Diagnoses Not on filedocumented in this encounter Additional Health Concerns Assessment Noted Time PHQ-9 Depression Total Score: 0 03/09/20 2:42 PM EDT documented as of this encounter Care Teams Cement Worker Relationship Specialty Start Date End Date Name, MD Terence [address] [place] [phone] PCP - General Family Medicine 01/13/16 documented as of this encounter
--- OUTSIDE RECORDS SUMMARY | 2024-11-20 13:50 | XMS_ITS | Encounter Summary ---
Author Organization [employer] Address 75 [facility] 7t [place] [address] Care Team Providers Care Financial Reporting Director Name Role Phone Name, Terence MARIA Primary Care Provider [phone] Reason for Visit * Reason Onset Date Comments [facility] Orders 02/26/2023 Vitamin Deficiency 02/26/2023 Pt no show to hospital follow up appointment. Encounter Details Date Type Department Care Team ([facility] st Contact Info) Description 02/26/2023 Telephone [facility] 230 [place], [place] [phone] Name, MD Terence [address] [place], [place] [phone] [facility] Orders; Vitamin Deficiency (Pt no show to hospital follow up appointment.) Social History Tobacco Use Types Packs/Day Years Used Date Smoking Tobacco: Never Assessed Comments Unknown Sex and Gender Information Value Date Recorded Sex Assigned at Female 08/17/2022 10:14 AM EDT Legal Sex Female 10:14 AM EDT Gender Identity Female 08/17/2022 10:14 AM EDT Sexual Orientation Straight 08/17/2022 10 :14 AM EDT documented as of this encounter Miscellaneous Notes * Telephone Encounter - Linnea Salcedo - 03/05/2023 2:42 PM EDT Pt no show to hospital follow up appointment. * Telephone Encounter - Ryanne Pool - 02/26/2023 8:16 AM EDT Tc princess Urrutia at [facility] calling in regards to [facility] wound care orders. Ghada would like to know if PCP will sign orders due today. Patient was last seen with Dr. Law 07/08/20. Patient does have an upcoming PE appt on 03/09/23. documented in this encounter Plan of Treatment Upcoming Encounters Date Type Department Care Team (Late st Contact Info) Description 11/27/2024 10:45 AM EST Office Visit [facility] [address] [place] [address] Name, MD Terence [address] [place] [address] documented as of this encounter Visit Diagnoses Not on filedocumented in this encounter Care Teams Financial Reporting Director Relationship Specialty Start Date End Date Name, MD Terence [address] [place] [address] PCP - General Family Medicine 01/13/16 documented as of this encounter
--- OUTSIDE RECORDS SUMMARY | 2024-11-20 13:50 | XMS_ITS | Encounter Summary ---
Author Organization [employer] Address 75 [facility] 7t [place] [address] Care Team Providers Care User Acceptance Tester Name Role Phone Name, Terence MARIA Primary Care Provider [phone] Reason for Visit * Reason Onset Date Comments Durable Medical Equipment 11/07/2024 Encounter Details Date Type Department Care Team ([facility] st Contact Info) Description 11/07/2024 Telephone [facility] [address] [place], [place] [phone] Name, MD Terence [address] [place], [place] [phone] Durable Medical Equipment Social History Tobacco Use Types Packs/Day Years Used Date Smoking Tobacco: Every Day Cigarettes Smokeless Tobacco: Never Depression Answer Date Recorded Patient Health Questionnaire-9 Score 14 11/25/2023 Patient Health Questionnaire-9 Score 14 11/25/2023 Last PHQ-9: Questionnaire Data Not on file 0 11/25/2023 Housing Stability Answer Date Recorded What is your housing situation today? I have jo ann acevedo 01/03/[address] you li ve. Do you have problems with any of the following? None of the above 01/03/2024 Food Insecurity Answer Date Recorded Within the past 12 months, y ou worried that your food would run out before you got money to buy more: Never True 01/03/2024 Within the past 12 months,th e food you bought just didn't last and you didn't have enough money to get more: Never True Transportation Answer Date Recorded In the past [...] Answer Date Recorded Patient Health Questionnaire-2 Score 6 11/25/2023 Comments No Sex and Gender Information Value Date Recorded Sex Assigned at Female 08/17/2022 10:14 AM EDT Legal Sex Female 10:14 AM EDT Gender Identity Female 08/17/2022 10:14 AM EDT Sexual Orientation Straight 08/17/2022 10 :14 AM EDT documented as of this encounter Miscellaneous Notes * Telephone Encounter - Patricia Godoy - 11/09/2024 11:15 AM EST Confirmation of order form signed and faxed to [employer] Fax confirmation received and sent to scan. * Telephone Encounter - Patricia Godoy - 11/07/2024 10:06 AM EST Confirmation of order for raised toilet seat and grab bar from [employer] placed on PCP desk for signature. documented in this encounter Plan of Treatment Upcoming Encounters Date Type Department Care Team (Late st Contact Info) Description 11/27/2024 10:45 AM EST Office Visit [facility] [address] [place] [address] Name, MD Terence [address] [place] [address] documented as of this encounter Visit Diagnoses Not on filedocumented in this encounter Additional Health Concerns Assessment Noted Time PHQ-9 Depression Total Score: 14 024 2:43 PM EST documented as of this encounter Care Teams User Acceptance Tester Relationship Specialty Start Date End Date NameTerence MD [address] [place] [address] PCP - General Family Medicine 01/13/16 documented as of this encounter
--- OUTSIDE RECORDS SUMMARY | 2024-11-20 13:50 | XMS_ITS | Encounter Summary ---
Author Organization [employer] Address [address] [facility] [address] 7[address] [place] [address] Care Team Providers Care Manager Business Continuity Name Role Phone Name, Terence MARIA Primary Care Provider [phone] Encounter Details Date Type Department Care Team ([facility] st Contact Info) Description 04/21/[address] [facility] [address] [place], [place] [phone] Arin Palomino CN [address] [place], [place] [phone] Social History Tobacco Use Types Packs/Day Years [...] t he electric, gas, oil or water [employer] threatened to shut off services in your [...] Description 11/27/2024 10:45 AM EST Office Visit [facility] [address] [place] [address] Name, MD Terence [address] [place] [address] documented as of this encounter Visit Diagnoses Not on filedocumented in this encounter Additional Health Concerns Assessment Noted Time PHQ-9 Depression Total Score: 14 024 2:43 PM EST documented as of this encounter Care Teams Manager Business Continuity Relationship Specialty Start Date End Date Name, MD Terence [address] [place] [address] PCP - General Family Medicine 01/13/16 documented as of this encounter
--- OUTSIDE RECORDS SUMMARY | 2024-11-20 13:50 | XMS_ITS | Encounter Summary ---
Author Organization [employer] Address 75 [facility] 7t [place] [address] Care Team Providers Care Carburizer Name Role Phone Name, Terence MARIA Primary Care Provider [phone] Reason for Visit * Reason Onset Date Comments Med Refill 11/04/2023 Encounter Details Date Type Department Care Team ([facility] st Contact Info) Description 11/04/2023 Telephone [facility] MED[facility]INE [address] [place], [place] [phone] Name, MD Terence [address] [place] [address] Med Refill Social History Tobacco Use Types Packs/Day Years Used Date Smoking Tobacco: Former Cigarettes Smokeless Tobacco: Never Depression Answer Date Recorded Patient Health Questionnaire-9 Score 0 03/09/2023 Housing Stability Answer Date Recorded What is your housing situation today? I do not have housing (Staying with others, in a hotel, in a prison, living outside on the street, on a [...] encounter Miscellaneous Notes * Telephone Encounter - Shyam Anderson RN - 11/09/2023 8:47 AM EST T/C to pt. Through [employer] id - [id number] to schedule apt. No answer. LVM to call back [phone]. * Telephone Encounter - Adrienne Olivia LPN - 11/04/2023 11:00 AM EST Medications not pended as Clonidine and Ferrous Sulfate last filled 02/25/23 Gababentin last filled 05/15/23 and Paroxetine and Hydroxyzine should have refills.Please review * Telephone Encounter - Courtney Walker - 11/04/2023 10:48 AM EST TC from pt requesting medication refill. Medications needing refill : cloNIDine (Catapres) 0.1 MG tablet ferrous sulfate 325 (65 Fe) MG EC tablet gabapentin (Neurontin) 400 MG capsule hydrOXYzine HCl (Atarax) 25 MG tablet PARoxetine (Paxil) 40 MG tablet To be sent to: [facility]/pharmacy #[id number] documented in this encounter Plan of Treatment Upcoming Encounters Date Type Department Care Team (Late st Contact Info) Description 11/27/2024 10:45 AM EST Office Visit [facility]INE [address] [place] [address] Name, MD Terence [address] [place] [address] documented as of this encounter Visit Diagnoses Not on filedocumented in this encounter Additional Health Concerns Assessment Noted Time PHQ-9 Depression Total Score: 0 03/09/20 23 2:42 PM EDT documented as of this encounter Care Teams Carburizer Relationship Specialty Start Date End Date Name, [place] [address] PCP - General Family Medicine 01/13/16 documented as of this encounter
--- OUTSIDE RECORDS SUMMARY | 2024-11-20 13:50 | XMS_ITS | Encounter Summary ---
Author Organization [employer] Address 75 [facility] 7t [place] [address] Care Team Providers Care Jig Boring Machine Operator For Metal Name Role Phone Name, Terence MARIA Primary Care Provider [phone] Reason for Visit * Reason Onset Date Comments Medication Question 12/16/2023 Encounter Details Date Type Department Care Team ([facility] st Contact Info) Description 12/16/2023 Telephone [facility] 230 [place], [place] [phone] Name, MD Terence 230 [place], [place] [phone] Medication Question Social History Tobacco Use Types Packs/Day Years [...] t he electric, gas, oil or water [facility] threatened to shut off services in your home? No 2023 Depression Answer Date Recorded Patient Health Questionnaire-2 Score 6 11/25/2023 Comments Unknown Sex and Gender Information Value Date Recorded Sex Assigned at Female 08/17/2022 10:14 AM EDT Legal Sex Female 10:14 AM EDT Gender Identity Female 08/17/2022 10:14 AM EDT Sexual Orientation Straight 08/17/2022 10 :14 AM EDT documented as of this encounter Miscellaneous Notes * Telephone Encounter - Shyam Anderson RN - 12/17/2023 3:02 PM EST T/C to pt. To inform pt. Through [employer] interpreters id - [id number] to inform that PCP has to see her to give clonazepam medication. No answer. LVM to call back on [phone]. * Telephone Encounter - Shyam Anderson RN - 12/17/2023 2:45 PM EST T/C to pt. Through [employer] id - [id number] for below message, pt. States she used to get combination of clonazepam with Suboxone medication but she did not received clonazepam from another provider. Pt. Is asking for clonazepam medication rx from PCP. Pt. Was advised that RN will send message to PCP but she might has to be seen before sending clonazepam because provider might not prescribeclonazepam without seeing her. Pt. Also advise that she can come to walk in center if any concerns.Pt. Verbally agreed and understood. Please review and advise. * Telephone Encounter - Alex Polanco - 12/16/2023 3:24 PM EST Tc from pt requesting a call back, states spoke with RN in regards to clonazepam and is requesting status on med. Leather Drier advised pt is scheduled for 01/10/24 to further discuss with PCP however pt stated appt is too far out. Please contact at [phone] documented in this encounter Plan of Treatment Upcoming Encounters Date Type Department Care Team (Late st Contact Info) Description 11/27/2024 10:45 AM EST Office Visit [facility] MEDICINE [address] [place] [address] Name, MD Terence [address] [place] [address] documented as of this encounter Visit Diagnoses Not on filedocumented in this encounter Additional Health Concerns Assessment Noted Time PHQ-9 Depression Total Score: 14 024 2:43 PM EST documented as of this encounter Care Teams Jig Boring Machine Operator For Metal Relationship Specialty Start Date End Date Name, MD Terence [address] [place] [address] PCP - General Family Medicine 01/13/16 documented as of this encounter
--- OUTSIDE RECORDS SUMMARY | 2024-11-20 13:50 | XMS_ITS | Encounter Summary ---
Author Organization [facility] Address [address] [place] [address] 7 [place] [address] Care Team Providers Care Belt Loop Maker Name Role Phone Name, Terence MARIA Primary Care Provider [phone] Reason for Visit * Reason Comments Med Refill Encounter Details Date Type Department Care Team ([facility] Contact Info) Description 12/21/2022 Refill [facility] [address] [place] [phone] NameTerence MD [address] [place] [address] Anxiety Social History Tobacco Use Types Packs/Day [...] Upcoming Encounters Date Type Department Care Team ([facility] Contact Info) Description 11/27/2024 10:45 AM EST Office Visit [facility] [address] [place] [address] Terence Law MD [address] [place] [address] documented as of this encounter Visit Diagnoses Diagnosis Anxiety Anxiety state, unspecified documented in this encounter Care Teams Belt Loop Maker Relationship Specialty Start Date End Date Terence Law MD [address] [place] [address] PCP - General Family Medicine 01/13/16 documented as of this encounter
--- OUTSIDE RECORDS SUMMARY | 2024-11-20 13:50 | XMS_ITS | Encounter Summary ---
Author Organization [employer] Address [address] [facility] 7t [place] [address] Care Team Providers Care Software Quality Engineer Name Role Phone Name, Terence MARIA Primary Care Provider [phone] Reason for Visit * Reason Onset Date Comments Call Back Request 10/25/2024 Encounter Details Date Type Department Care Team ([facility] Contact Info) Description 10/25/2024 Telephone [facility] [address] [place], [place] [phone] Name, MD Terence [address] [place], [place] [phone] Call Back Request Social History Tobacco Use Types Packs/Day Years [...] encounter Miscellaneous Notes * Telephone Encounter - Sara Barraza RN - 10/25/2024 3:19 PM EST Call returned to pt via [employer] Manager [employer] #[phone] for status check based on message below. No answer, v/m left to return call to [place] team nurses. * Telephone Encounter - Martín Junior - 10/25/2024 11:58 AM EST Tc from pt requesting call back to discuss current condition stating she feels there might be more going on. Pt stated no immediate concerns would like to speak with someone. Please contact pt at [phone]. ([place] Speaker) documented in this encounter Plan of Treatment Upcoming Encounters Date Type Department Care Team (Late st Contact Info) Description 11/27/2024 10:45 AM EST Office Visit [facility] [address] [place] [address] Name, MD Terence [address] [place] [address] documented as of this encounter Visit Diagnoses Not on filedocumented in this encounter Additional Health Concerns Assessment Noted Time PHQ-9 Depression Total Score: 14 024 2:43 PM EST documented as of this encounter Care Teams Software Quality Engineer Relationship Specialty Start Date End Date Name, MD Terence [address] [place] [address] PCP - General Family Medicine 01/13/16 documented as of this encounter
--- OUTSIDE RECORDS SUMMARY | 2024-11-20 13:50 | XMS_ITS | Encounter Summary ---
Author Organization [employer] Address [address] [facility] [place] [address] Care Team Providers Care Transfer Professor Name Role Phone Name, Terence MARIA Primary Care Provider [phone] Encounter Details Date Type Department Care Team ([facility] st Contact Info) Description 10/25/2024 Telephone [facility] [address] [place], [place] [phone] Name, MD Terence [address] [place], [place] [phone] Social History Tobacco Use Types Packs/Day Years [...] encounter Miscellaneous Notes * Telephone Encounter - Puneet Chowdhuyr RN - 10/25/2024 11:30 AM EST DME for bath tub wall rail from [employer] and willy placed on PCP desk for signature. documented in this encounter Plan of Treatment Upcoming Encounters Date Type Department Care Team (Late st Contact Info) Description 11/27/2024 10:45 AM EST Office Visit [facility] [address] [place] [phone] Name, MD Terence [address] [place] [address] documented as of this encounter Visit Diagnoses Not on filedocumented in this encounter Additional Health Concerns Assessment Noted Time PHQ-9 Depression Total Score: 14 024 2:43 PM EST documented as of this encounter Care Teams Transfer Professor Relationship Specialty Start Date End Date Name, MD Terence [address] [place] [address] PCP - General Family Medicine 01/13/16 documented as of this encounter
--- OUTSIDE RECORDS SUMMARY | 2024-11-20 13:50 | XMS_ITS | Encounter Summary ---
Author Organization [employer] Address [address] [facility] [address] 7[address] [place] [address] Care Team Providers Care Harp Maker Name Role Phone Name, Terence MARIA Primary Care Provider [phone] Encounter Details Date Type Department Care Team (Late st Contact Info) Description 10/27/2024 Refill 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 Nanyeliz translated. Pt reporting needing paperwork filled out for disability. Advised pt to go to medical records for assistance. Pt verbalized understanding. Pt reports having a wound on her leg that her COLLAR STAY FUSER TENDER takes care of. Pt denies current drainage, redness, heat, or swelling. Reports her COLLAR STAY FUSER TENDER monitors for infection and changes the dressing that goes up to her knee every 7 days. Pt reports finishing an antibiotic for an infection 4 days ago. Pt reports hands, leg, and lips turning black when she goes out into the cold. No current evidence visualized by nurse of hands being black from cold. Informed the pt that she does have Raynaud's phenomenon as listed in her problem list which is to be expected with condition. Pt also reports getting dizzy at times when going into cold. Pt reports being out of medications (gabapentin and nifedipine). Pended to provider for review. Advised pt to go to [facility] for any redness, heat, swelling, odor, abnormal drainage from wound or for any urgent needs. Pt verbalized understanding and reports no further questions or concerns at this time. documented in this encounter Plan of Treatment Upcoming Encounters Date Type Department Care Team (Late st Contact Info) Description 11/27/2024 10:45 AM EST Office Visit [facility] [address] [place] [address] Name, MD Terence [address] [place] [address] documented as of this encounter Visit Diagnoses Diagnosis Chronic pain syndrome documented in this encounter Additional Health Concerns Assessment Noted Time PHQ-9 Depression Total Score: 14 024 2:43 PM EST documented as of this encounter Care Teams Harp Maker Relationship Specialty Start Date End Date Name, MD Terence [address] [place] [address] PCP - General Family Medicine 01/13/16 documented as of this encounter
--- OUTSIDE RECORDS SUMMARY | 2024-11-20 13:50 | XMS_ITS | Encounter Summary ---
Author Organization [employer] Address [address] [facility] [place] [address] Care Team Providers Care Map Colorer Name Role Phone Name, Terence MARIA Primary Care Provider [phone] Encounter Details Date Type Department Care Team (Late st Contact Info) Description 11/08/2023 Orders Only [facility] [address] [place], [place] [phone] Ada Bridges RN Uncomplicated opioid dependence (CMS/HCC) Social History Tobacco Use Types Packs/Day Years Used Date Smoking Tobacco: Every Day Cigarettes Smokeless Tobacco: Never Depression Answer Date Recorded Patient Health Questionnaire-9 Score 0 03/09/2023 Housing Stability Answer Date Recorded What is your housing situation today? I do not have housing (Staying with others, in a hotel, in a custodial, living outside on the street, on a [...] as of this encounter Miscellaneous Notes * Result Encounter Note - Arin Palomino CNM - 11/08/2023 3:45 PM EST Please let Maddie know her pap was normal/HPV negative. Thanks! documented in this encounter Plan of Treatment Upcoming Encounters Date Type Department Care Team (Late st Contact Info) Description 11/27/2024 10:45 AM EST Office Visit [facility] [address] [place] [address] Name, MD Terence [address] [place] [phone] Scheduled Orders Name Type Priority Associated Diagnoses Orde r Schedule Hepatic Function Panel Lab Routine Uncomplicated opioid dependence (CMS/HCC) Expected: 11/08/2023 (Approximate), Expires: 11/08/2024 Hepatitis A Antibody, Total Lab Routine Uncomplicated opioid dependence (CMS/HCC) Expected: 11/08/2023 (Approximate), Expires: 11/08/2024 Hepatitis B Core Antibody, Total Lab Routine Uncomplicated opioid dependence (CMS/HCC) Expected: 11/08/2023 (Approximate), Expires: 11/08/2024 Hepatitis B Surface Antibody, Qualitative Lab Routine Uncomplicated opioid dependence (CMS/HCC) Expected: 11/08/2023 (Approximate), Expires: 11/08/2024 Hepatitis B surface antigen, EIA Lab Routine Uncomplicated opioid dependence (CMS/HCC) Expected: 11/08/2023 (Approximate), Expires: 11/08/2024 Hepatitis C Antibody with Reflex to HCV, RNA, Quantitative, Real-Time PCR Lab Routine Uncomplicated opioid dependence (CMS/HCC) Expected: 11/08/2023 (Approximate), Expires: 11/08/2024 HIV-1/2 Antigen and Antibodies, Fourth Generation, with Reflexes Lab Routine Uncomplicated opioid dependence ([facility]) Expected: 11/08/2023 (Approximate), Expires: 11/08/2024 Syphilis Screen Lab Routine Uncomplicated opioid dependence ([facility]) Expected: 11/08/2023 (Approximate), Expires: 11/08/2024 T-SPOT??.TB Lab Routine Uncomplicated opioid dependence ([facility]) Expected: 11/08/2023 (Approximate), Expires: 11/08/2024 documented as of this encounter Procedures Procedure Name Priority Date/Time Associated Diagnosis Comments THINPREP IMAGING PAP AND HPV MRNA E6/E7 WITH REFLEX TO HPV 16,18/45 Routine 04/17/2024 11:13 AM EDT Uncomplicated opioid dependence ([facility]) documented in this encounter Results * ThinPrep Imaging Pap and HPV mRNA E6/E7 with Reflex to HPV 16,18/45 (04/17/2024 11:13 AM EDT) HPV 16 RNA [facility] HPV 18/45 RNA [facility] HPV nRNA E6/E7 Not Detected Not Detected [facility] Comment:Methodology: Transcr iption-Mediated AmplificationThis assay detects E6/E7 viral messenger RNA (mRNA) from 14high-risk HPV types (16,18,31,33,35,39,45,51,52,56,58,59,66,68).Cervical sources are required for HPV testing.If a vaginal source from a patient who has had atotal hysterectomy with removal of cervix wassubmitted, please contact the testing laboratoryfor alternative testing options.For additional information, please refer [email or web address]/JKI773z2(This link if provided for information/educational purposes only.)THIS TEST WAS PERFORMED AT:[address] [place] [phone] DENT MD SOURCE: SEE NOTE [facility] Comment:Cervix Report Status: [facility] Clinical Information: SEE NOTE [facility] Comment:ROUTINE LMP: SEE NOTE [facility] Comment:NONE GIVEN Prev. PAP: SEE NOTE [facility] Comment:NONE GIVEN Prev. BX: SEE NOTE [facility] Comment:NONE GIVEN Statement Of Adequacy: SEE NOTE [facility] Comment:Satisfactory for flores luation.Endocervical/transformation zone componentpresent. General Categorization: [facility] Interpretation/Result: SEE NOTE [facility] Comment:Cytology Results: Ne gative for intraepitheliallesion or malignancy. Cytology Comment SEE NOTE [facility] Comment:This Pap test has be en evaluated with computerassisted technology. Gear Shaper: SEE NOTE [facility] Comment:YP, CT(ASCP)CT scree kaela location: [place] [address] Review Gear Shaper: [facility] Pathologist [facility] PAP Infection SEE NOTE [facility] Comment:Shift in vaginal leonard ra suggestive of bacterialvaginosis. See Note SEE NOTE [facility] Comment:EXPLANATORY NOTE:The Pap is a screening test for cervical cancer. It isnot a diagnostic test and is subject to false negativeand false positive results. It is most reliable when asatisfactory sample, regularly obtained, is submittedwith relevant clinical findings and history, and whenthe Pap result is evaluated along with historic andcurrent clinical information. 04/17/2024 11:1 3 AM EDT 04/17/2024 4:19 PM EDT Narrative [facility] - 04/25/2024 1:06 PM EDT SEE SCANNED RESULTS IN EMRRCEREVIX us Arin [facility] ORDERABLES Final Result [facility] [address] [place] [address] [phone] documented in this encounter Visit Diagnoses Diagnosis Uncomplicated opioid dependence (CMS/HCC) documented in this encounter Additional Health Concerns Assessment Noted Time PHQ-9 Depression Total Score: 0 03/09/20 23 2:42 PM EDT documented as of this encounter Care Teams Map Colorer Relationship Specialty Start Date End Date Name, MD Terence [address] [place] [address] PCP - General Family Medicine 01/13/16 documented as of this encounter
--- OUTSIDE RECORDS SUMMARY | 2024-11-20 13:51 | XMS_ITS | Clinical Summary ---
Author Organization [employer] Address [address] [facility] 7t [place] [address] Care Team Providers Care Networks Computer Consultant Name Role Phone Name, Terence MARIA Primary Care Provider [phone] Allergies No known active allergies Medications * This document contains information received from the source organization and may not represent a complete record from that organization. nitroglycerin (Nitro-Bid) 2 % ointment apply 1/2 inch by transdermal route topically per day 12/24/19 21 Active Nutritional Supplements (Ensure Nutrition Shake) liquid one can 3 times per day 11/08/19 19 Active ferrous sulfate 325 (65 Fe) MG EC tablet Take 1 tablet by mouth every other day. 02/26/20 23 Active naloxone (Narcan) 4 mg/0.1 mL nasal spray Administer 1 spray (4 mg) into affected nostril(s) if needed for opioid reversal. 2 each 1 03/04/20 23 Active acetaminophen (Tylenol) 500 MG tablet Take 2 tablets (1,000 mg) by mouth every 6 (six) hours if needed for moderate pain or fever for up to 25 doses. 40 tablet 03/04/20 23 Active nicotine polacrilex (Commit) 4 MG lozenge Dissolve 1 lozenge (4 mg) in the mouth every 2 (two) hours if needed for smoking cessation. 100 lozenge 11/08/19 24 Active PARoxetine (Paxil) 40 MG tablet Take 1 tablet (40 mg) by mouth in the morning. 30 tablet 3 01/10/20 24 2024 Active hydrOXYzine HCl (Atarax) 25 MG tablet TAKE 1 TABLET BY MOUTH EVERY 8 HOURS NEEDED FOR ALLERGIES 90 tablet 1 01/10/20 24 Active docusate sodium (Colace) 100 MG capsuleIndicat ions:Uncomplic ated opioid dependence (CMS/HCC) TAKE 1 TO 2 CAPSULES BY MOUTH AT BEDTIME NEEDED FOR CONSTIPATION 180 capsule 3 02/17/20 24 Active podofilox (Condylox) 0.5 % gel Apply to affected area twice a day x 3 days, then stop for 4 days. Repeat every week x 1 month 3.5 g 1 04/17/20 24 Active Mometasone Furoate (Asmanex HFA) 200 MCG/ACT aerosol Use 2 puffs BID 13 g 3 05/01/20 24 Active albuterol (Ventolin HFA) 108 (90 Base) MCG/ACT inhaler INHALE 2 PUFFS EVERY 4 HOURS IF NEEDED FOR WHEEZING. 18 g 3 05/25/20 24 Active cloNIDine (Catapres) 0.1 MG tablet TAKE 1 TABLET BY MOUTH 2 TIMES DAILY 60 tablet 06/29/20 24 Active gabapentin (Neurontin) 400 MG capsuleIndicat ions:Chronic pain syndrome take 1 capsule by oral route every day 30 capsule 3 10/27/19 25 Active NIFEdipine XL (Procardia XL) 60 MG 24 hr tablet Take 1 tablet (60 mg) by mouth Once per day. 90 tablet 1 10/27/19 25 Active gabapentin (Neurontin) 400 MG capsuleIndicat ions:Chronic pain syndrome take 1 capsule by oral route every day 30 capsule 3 10/06/20 22 2024 Discontinued(R eorder (will not trigger notification to Pharmacy)) naloxone (Narcan) 4 mg/0.1 mL nasal spray Administer 1 spray (4 mg) into affected nostril(s) if needed for opioid reversal. May repeat every 2-3 minutes if needed, alternating nostrils, until medical assistance becomes available. 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 Urinary incontinence 09/23/2018 Migraine without aura, not refractory 01/24/2018 JUDE (generalized anxiety disorder) 08/19/2017 Raynaud's phenomenon 08/19/2017 Moderate major depression 01/13/2016 Hepatitis C antibody test positive 01/13/2016 Joint pain 01/13/2016 Resolved Problems Problem Noted Date Diagnosed Date Resolved Date Nondependent opioid abuse 08/14/2016 Encounters Date Type Department Care Team Description 11/07/[address] [address] Terence Law MD Durable Medical Equipment 10/27/[address] [address] Magdalene Gonzalez RN Chronic pain syndrome 10/25/[address] [address] Terence Law MD Call Back Request 10/25/[address] [address] Terence Law MD 10/23/[address] [address] Alphonse De Luna MA DME-grab bars , raised toilet seat 10/09/[address] [address] Alphonse De Luna MA Dme-grab bars, rasied toilet 10/02/[address] [address] Alphonse De Luna MA Nov Recall\ from Last 3 Months Family History Medical History Relation Name Comments Breast cancer Half-Sister paternal half- sister Relation Name Status Comments Half-Sister Alive Social History Tobacco Use Types Packs/Day Years Used Date Smoking Tobacco: Every Day Cigarettes Smokeless Tobacco: Never Tobacco Cessation:Ready to Q uit: Not Asked; Counseling Given: Not Answered Depression Answer Date Recorded Patient Health Questionnaire-9 Score 14 11/25/2023 Patient Health Questionnaire-9 Score 14 11/25/2023 Last PHQ-9: Questionnaire Data Not on file 0 11/25/2023 Housing Stability Answer Date Recorded What is your housing situation today? I have jo ann sing 01/03/[address] you li [...] Orientation Straight 08/17/2022 10 :14 AM EDT Last Filed Vital Signs Vital Sign Reading Time Taken Comments Blood Pressure 130/84 05/01/2024 11:42 AM EDT Pulse 90 05/01/2024 11:42 AM EDT Temperature 36.8 ??C (98.2 ??F) 05/01/2024 11:42 AM E DT Respiratory Rate 20 04/17/2024 10:53 AM EDT Oxygen Saturation 97% 05/01/2024 11:42 AM EDT room air Inhaled Oxygen Concentration - - Weight 84.8 kg (187 lb) 04/17/2024 10:53 AM EDT Height 157.5 cm (5' 2 ) 04/17/2024 10:53 AM EDT Body Mass Index 34.2 04/17/2024 10:53 AM EDT Plan of Treatment Upcoming Encounters Date Type Department Care Team (Late st Contact Info) Description 11/27/2024 10:45 AM EST Office Visit [facility] MEDICINE [address] [place] [address] Name, MD [facility]rence [facility] [place] [address] Health Maintenance Due Date Last Done Comments CT Colonography 1978 Colonoscopy 1978 Colorectal Cancer Screening 1978 FIT DNA/Cologuard 1978 FIT 1978 FOBT 1978 HIV Screening 1978 Lipid Panel 1978 Sigmoidoscopy 1978 Alcohol/Substance Use Screening 1990 Hepatitis C Screening 1996 DTaP/Tdap/Td Vaccines (1 - Tdap) 1997 Hepatitis B Vaccines (1 of 3 - 19+ 3-dose series) 1997 Pneumococcal Vaccine: Pediatrics (0 to 5 Years) and At-Risk Patients (6 to 49) Years) (1 of 2 - PCV) 1997 Mammogram 2018 Depression Monitoring (PHQ-9) 05/25/2024, 11/25/2023 COVID-19 Vaccine (1 - 2023-2 5 season) 2024 Influenza Vaccine (#1) 2024 Depression Screening 11/25/2024 11/25/2023, 11/25/2023 SDOH Screening 01/02/2025 01/03/2024 Family Planning (PISQ) 04/17/2025 04/17/2024 Tobacco Screening 04/17/2025 04/17/2024 Zoster Vaccines (1 of 2) 2028 Cervical Cancer Screening 04/17/2029 HPV/Cotest 04/17/2029 04/17/2024 Pap Smear 04/17/2029 04/17/2024 RSV Patients and Patients Aged 60 years or older (1 - 1-dose 75+ series) 2053 HIB Vaccines Aged Out No longer eligi ble based on patient's age to complete this topic HPV Vaccines Aged Out No longer eligi ble based on patient's age to complete this topic Hepatitis A Vaccines Aged Out No long er eligible based on patient's age to complete this topic IPV Vaccines Aged Out No longer eligi ble based on patient's age to complete this topic Meningococcal Vaccine Aged Out No tanner buddy eligible based on patient's age to complete this topic RSV under 20 months Aged Out No longe r eligible based on patient's age to complete this topic Rotavirus Vaccines Aged Out No longer eligible based on patient's age to complete this topic Procedures Procedure Name Priority Date/Time Associated Diagnosis Comments THINPREP IMAGING PAP AND HPV MRNA E6/E7 WITH REFLEX TO HPV 16,18/45 Routine 04/17/2024 11:13 AM EDT Uncomplicated opioid dependence (CMS/HCC) from Last 3 Months or Most Recently Relevant to Health Maintenance Results * ThinPrep Imaging Pap and HPV mRNA E6/E7 with Reflex to HPV 16,18/45 (04/17/2024 11:13 AM EDT) HPV 16 RNA [facility] HPV 18/45 RNA [facility] HPV nRNA E6/E7 Not Detected Not Detected [facility] Comment:Methodology: Transcr iption-Mediated AmplificationThis assay detects E6/E7 viral messenger RNA (mRNA) from 14high-risk HPV types (16,18,31,33,35,39,45,51,52,56,58,59,66,68).Cervical sources are required for HPV testing.If a vaginal source from a patient who has had atotal hysterectomy with removal of cervix wassubmitted, please contact the testing laboratoryfor alternative testing options.For additional information, please refer tohttp://education.elmenus/faq/MOD072a8(This link if provided for information/educational purposes only.)THIS TEST WAS PERFORMED AT:[employer] [place] [id number] DENT MD SOURCE: SEE NOTE [facility] Comment:Cervix Report Status: [facility] Clinical Information: SEE NOTE [facility] Comment:ROUTINE LMP: SEE NOTE [facility] Comment:NONE GIVEN Prev. PAP: SEE NOTE [facility] Comment:NONE GIVEN Prev. BX: SEE NOTE [facility] Comment:NONE GIVEN Statement Of Adequacy: SEE NOTE [facility] Comment:Satisfactory for flores luation.Endocervical/transformation zone componentpresent. General Categorization: [facility] Interpretation/Result: SEE NOTE [facility] Comment:Cytology Results: Ne gative for intraepitheliallesion or malignancy. Cytology Comment SEE NOTE [facility] Comment:This Pap test has be en evaluated with computerassisted technology. Ticketing Clerk: SEE NOTE [facility] Comment:YP, CT(ASCP)CT scree kaela location: [place] [address] Review Ticketing Clerk: [facility] Pathologist [facility] PAP Infection SEE NOTE [facility] Comment:Shift in vaginal leonard ra suggestive of bacterialvaginosis. See Note SEE NOTE [facility] Comment:EXPLANATORY NOTE:The Pap is a screening test for cervical cancer. It isnot a diagnostic test and is subject to false negativeand false positive results. It is most reliable when asatisfactory sample, regularly obtained, is submittedwith relevant clinical findings and history, and whenthe Pap result is evaluated along with historic andcurrent clinical information. 04/17/2024 11:1 3 AM EDT 04/17/2024 4:19 PM EDT Narrative [facility] - 04/25/2024 1:06 PM EDT SEE SCANNED RESULTS IN EMRRCEREVIX us Arin Palomino CNM LAB PATHOLOGY ORDERABLES Final Result [facility] [address] [place] [address] [phone] from Last 3 Months or Most Recently Relevant to Health Maintenance Insurance [facility] C[facility] * Guarantor: Maddie Dobbins Account Type Relation to Patient Date of Phone Billing Address Personal/Family Self [address] [place] Care Teams Networks Computer Consultant Relationship Specialty Start Date End Date Name, MD Terence [address] [place] [address] [place] [address] PCP - General Family Medicine 01/13/16
--- OUTSIDE RECORDS SUMMARY | 2024-11-20 13:51 | XMS_ITS | Encounter Summary ---
Author Organization [employer] Address [address] [place] [address] Care Team Providers Care Hazardous Materials Waste Technician Name Role Phone Name, Terence MARIA Primary Care Provider [phone] Reason for Visit * Reason Onset Date Comments DME-grab bars , raised toilet seat 10/23/2024 Encounter Details Date Type Department Care Team ([facility] Contact Info) Description 10/23/2024 Telephone [facility] MEDICINE [address] [place], [place] [phone] Alphonse De Luna MA DME-grab bars , raised toilet seat Social History Tobacco Use Types Packs/Day Years [...] encounter Miscellaneous Notes * Telephone Encounter - Alphonse De Luna MA - 10/23/2024 1:20 PM EST DME for grab bars and toilet seat signed and faxed to Felicita . Confirmation received and sent to scan. If patient calls to check status on above, please advise them to contact Felicita at [phone]. documented in this encounter Plan of Treatment Upcoming Encounters Date Type Department Care Team (Late st Contact Info) Description 11/27/2024 10:45 AM EST Office Visit [facility] MEDICINE [address] [place] [address] Name, MD Terence [address] [place] [address] documented as of this encounter Visit Diagnoses Not on filedocumented in this encounter Additional Health Concerns Assessment Noted Time PHQ-9 Depression Total Score: 14 024 2:43 PM EST documented as of this encounter Care Teams Hazardous Materials Waste Technician Relationship Specialty Start Date End Date Name, MD Terence [address] [place] [address] PCP - General Family Medicine 01/13/16 documented as of this encounter
== END 2024-11-20 13:23 | disposition home or self-care (01) ==
LOC: HO.HWS 12:30
PROVIDERS: PCP Internal Medicine Geriatric Medicine; Visit Provider Obstetrics & Gynecology
DX: N93.9 Abnormal uterine and vaginal bleeding, unspecified (principal); L91.8 Other hypertrophic disorders of the skin
CPT/HCPCS: 99203

== ENCOUNTER 2024-12-11 14:03 | Outpatient (REF) | payer MEDICAID, SELFPAY ==
--- NOTE | ~2024-12-11 | US_ITS ---
EXAMINATION: US PELVIS TRANSABDOMINAL AND TRANSVAGINAL HISTORY: N93.9 - Abnormal uterine and vaginal bleeding, unspecified COMPARISON: There are no prior studies for comparison. TECHNIQUE: Transabdominal and endovaginal real-time 2D llanos-scale ultrasound was performed. FINDINGS: Uterus: The uterus is normal in size, measuring 7.4 x 3.6 x 4.1 cm. Myometrium has a normal echotexture. There is an 8 x 7 x 9 mm fundal fibroid. Endometrium: The endometrial stripe measures 11 mm in thickness. Right ovary: The right ovary measures 2.6 x 1.8 x 1.6 cm. The right ovary is normal in size and echotexture. Left ovary: The left ovary is not identified. Pelvic fluid: none. US/US pelvic and transvaginal IMPRESSION: 1. The endometrial stripe measures 11 mm in thickness. 2. 8 x 7 x 9 mm fundal fibroid. 3. The left ovary is not identified. Electronically signed by: Tunde Guzman MD 12/12/2024 10:04 AM [facility]
--- OUTSIDE RECORDS SUMMARY | 2024-12-11 16:10 | XMS_ITS | Encounter Summary ---
Author Organization [employer] Address [address] 7t [place] [address] Care Team Providers Care Ui Software Developer Name Role Phone Name, Terence MARIA Primary Care Provider [phone] Encounter Details Date Type Department Care Team (Late st Contact Info) Description 11/08/2023 Orders Only [facility] [address] [place], [place] [phone] Ada Bridges RN Uncomplicated opioid dependence (CMS/HCC) Social History Tobacco Use Types Packs/Day Years Used Date Smoking Tobacco: Every Day Cigarettes Smokeless Tobacco: Never Depression Answer Date Recorded Patient Health Questionnaire-9 Score 0 03/09/2023 Housing Stability Answer Date Recorded What is your housing situation today? I do not have housing (Staying with others, in a hotel, in a jail, living outside on the street, on a [...] Care Team (Late st Contact Info) Description 03/16/2025 10:30 AM EDT Office Visit [facility] [address] [place] [address] Name, MD Terence [address] [place] [phone] Scheduled Orders Name Type Priority Associated Diagnoses [...] with Reflexes Lab Routine Uncomplicated opioid dependence ([facility]) Expected: 11/08/2023 (Approximate), Expires: 11/08/2024 Syphilis Screen Lab Routine Uncomplicated opioid dependence ([facility]) Expected: 11/08/2023 (Approximate), Expires: 11/08/2024 T-SPOT??.TB Lab Routine Uncomplicated opioid dependence ([facility]) Expected: 11/08/2023 (Approximate), Expires: 11/08/2024 documented as of this encounter Procedures Procedure Name Priority Date/Time Associated Diagnosis Comments THINPREP IMAGING PAP AND HPV MRNA E6/E7 WITH REFLEX TO HPV 16,18/45 Routine 04/17/2024 11:13 AM EDT Uncomplicated opioid dependence ([facility]) documented in this encounter Results * ThinPrep Imaging Pap and HPV mRNA E6/E7 with Reflex to HPV 16,18/45 (04/17/2024 11:13 AM EDT) HPV 16 RNA [facility] HPV 18/45 RNA [facility] HPV nRNA E6/E7 Not Detected Not Detected [facility] Comment:Methodology: Transcr iption-Mediated AmplificationThis assay detects E6/E7 viral messenger RNA (mRNA) from 14high-risk HPV types (16,18,31,33,35,39,45,51,52,56,58,59,66,68).Cervical sources are required for HPV testing.If a vaginal source from a patient who has had atotal hysterectomy with removal of cervix wassubmitted, please contact the testing laboratoryfor alternative testing options.For additional information, please refer tohttp://education.TweetDeck/faq/WTX000l7(This link if provided for information/educational purposes only.)THIS TEST WAS PERFORMED AT:[employer] [place] [id number] DENT MD SOURCE: SEE NOTE [facility] Comment:Cervix Report Status: [facility] Clinical Information: SEE NOTE [facility] Comment:ROUTINE LMP: SEE NOTE [facility] Comment:NONE GIVEN Prev. PAP: SEE NOTE [facility] Comment:NONE GIVEN Prev. BX: SEE NOTE [facility] Comment:NONE GIVEN Statement Of Adequacy: SEE NOTE [facility] Comment:Satisfactory for flores luation.Endocervical/transformation zone componentpresent. General Categorization: [facility] Interpretation/Result: SEE NOTE [facility] Comment:Cytology Results: Ne gative for intraepitheliallesion or malignancy. Cytology Comment SEE NOTE [facility] Comment:This Pap test has be en evaluated with computerassisted technology. Pocket Setter Lockstitch: SEE NOTE [facility] Comment:YP, CT(ASCP)CT scree kaela location: [place] [id number] Review Pocket Setter Lockstitch: [facility] Pathologist [facility] PAP Infection SEE NOTE [facility] Comment:Shift in vaginal leonard ra suggestive of bacterialvaginosis. See Note SEE NOTE [facility] Comment:EXPLANATORY NOTE:The Pap is a [...] AM EDT 04/17/2024 4:19 PM EDT Narrative [facility] - 04/25/2024 1:06 PM EDT SEE SCANNED RESULTS IN EMRRCEREVIX us Arin Palomino [facility] PATHOLOGY ORDERABLES Final Result [facility] [address] [place] [address] [phone] documented in this encounter Visit Diagnoses Diagnosis Uncomplicated opioid dependence (CMS/HCC) documented in this encounter Additional Health Concerns Assessment Noted Time PHQ-9 Depression Total Score: 0 03/09/20 2:42 PM EDT documented as of this encounter Care Teams Ui Software Developer Relationship Specialty Start Date End Date Name, MD Terence [address] [place] [address] PCP - General Family Medicine 01/13/16 documented as of this encounter
--- OUTSIDE RECORDS SUMMARY | 2024-12-11 16:10 | XMS_ITS | Encounter Summary ---
Author Organization [employer] Address [address] [facility] 7t [place] [address] Care Team Providers Care Sign Builder Name Role Phone Name, Terence MARIA Primary Care Provider [phone] Reason for Visit * Reason Onset Date Comments Appointment Request 11/28/2024 Encounter Details Date Type Department Care Team ([facility] st Contact Info) Description 11/28/2024 Telephone [facility] [address] [place], [place] [phone] Name, MD Terence [address] [place], [place] [phone] Appointment Request Social History Tobacco Use Types Packs/Day [...] encounter Miscellaneous Notes * Telephone Encounter - Hailee Dougherty - 11/28/2024 11:13 AM EST Tc from pt requesting schedule f/up appt with pcp. [phone] fijian documented in this encounter Plan of Treatment Upcoming Encounters Date Type Department Care Team (Late st Contact Info) Description 03/16/2025 10:30 AM EDT Office Visit [facility] [address] [place] [address] Name, MD Terence [address] [place] [address] documented as of this encounter Visit Diagnoses Not on filedocumented in this encounter Additional Health Concerns Assessment Noted Time PHQ-9 Depression Total Score: 14 024 2:43 PM EST documented as of this encounter Care Teams Sign Builder Relationship Specialty Start Date End Date Name, MD Terence [address] [place] [address] PCP - General Family Medicine 01/13/16 documented as of this encounter
--- OUTSIDE RECORDS SUMMARY | 2024-12-11 16:10 | XMS_ITS | Encounter Summary ---
Author Organization [employer] Address [address] [facility] [address] 7t [place] [address] Care Team Providers Care Stringing Machine Operator Name Role Phone Name, Terence MARIA Primary Care Provider [phone] Encounter Details Date Type Department Care Team ([facility] st Contact Info) Description 04/21/2024 Orders Only [facility] MED[facility]INE [address] [place], [place] [phone] Arin Palomino CN [address] [place], [place] [phone] Social History Tobacco Use Types Packs/Day Years [...] t he electric, gas, oil or water [employer] threatened to shut off services in your [...] Description 03/16/2025 10:30 AM EDT Office Visit [facility] [address] [place] [address] Name, MD Terence [address] [place] [address] documented as of this encounter Procedures Procedure Name Priority Date/Time Associated Diagnosis Comments CHLAMYDIA/N. GONORRHOEAE RNA, TMA, UROGENITAL Routine 11/20/2024 12:30 PM EST documented in this encounter Results * Chlamydia/N. Gonorrhoeae RNA, TMA, Urogenitial (11/20/2024 12:30 PM EST) CT PCR NOT DETECTED Not Detect. [facility] Comment:A not detected test result does not exclude the possibilityof infection because test results can be affected byimproper specimen collection, concurrent antibiotic therapy,or the number of organisms in the specimen which may bebelow the sensitivity of the test. As with many diagnostictests, results from the Xpert CT/NG assay should beinterpreted in conjunction with other laboratory andclinical data available to the clinician.Xpert CT/NG performance has not been evaluated in patientsless than 14 years of age. The assay should not be used forthe evaluationof suspected sexual abuse or for other medico-legalindications. Additional testing is recommended in anycircumstance when false positive or false negative resultscould lead to adverse medical, social or psychologicalconsequences. NG PCR NOT DETECTED Not Detect. [facility] Comment:A not detected test result does not exclude the possibilityof infection because test results can be affected byimproper specimen collection, concurrent antibiotic therapy,or the number of organisms in the specimen which may bebelow the sensitivity of the test. As with many diagnostictests, results from the Xpert CT/NG assay should beinterpreted in conjunction with other laboratory andclinical data available to the clinician.Xpert CT/NG performance has not been evaluated in patientsless than 14 years of age. The assay should not be used forthe evaluationof suspected sexual abuse or for other medico-legalindications. Additional testing is recommended in anycircumstance when false positive or false negative resultscould lead to adverse medical, social or psychologicalconsequences. 11/20/2024 12:3 0 PM EST 11/20/2024 3:00 PM EST Narrative [facility] - 11/21/2024 1:28 AM EST Vaginal us Generic External Data Provider LAB MICROBIOLOGY - GENERAL ORDERABLES Final Result Performing Organization Address City/State/RUST Co de Phone Number [facility] [address] [place] [phone] documented in this encounter Visit Diagnoses Not on filedocumented in this encounter Additional Health Concerns Assessment Noted Time PHQ-9 Depression Total Score: 14 024 2:43 PM EST documented as of this encounter Care Teams Stringing Machine Operator Relationship Specialty Start Date End Date Name, MD Terence [address] [place] [phone] PCP - General Family Medicine 01/13/16 documented as of this encounter
--- OUTSIDE RECORDS SUMMARY | 2024-12-11 16:10 | XMS_ITS | Encounter Summary ---
Author Organization [employer] Address [address] [facility] [address] [place] [address] Care Team Providers Care Legal Mediator Name Role Phone Name, Terence MARIA Primary Care Provider Encounter Details Date Type Department Care Team ([facility] st Contact Info) Description 08/30/2023 Telephone [facility] [address] [place], [place] [phone] Name, MD Terence [address] [place], [place] [phone] Social History Tobacco Use Types Packs/Day Years [...] 03/09 PE notes to be faxed to [phone]. States she faxed a release form to medical records and has not received anything back. Any questions, please contact yumiko at [phone] documented in this encounter Plan of Treatment Upcoming Encounters Date Type Department Care Team (Late st Contact Info) Description 03/16/2025 10:30 AM EDT Office Visit [facility] [address] [place] [phone] Name, MD Terence [address] [place] [address] documented as of this encounter Visit Diagnoses Not on filedocumented in this encounter Additional Health Concerns Assessment Noted Time PHQ-9 Depression Total Score: 0 03/09/20 2:42 PM EDT documented as of this encounter Care Teams Legal Mediator Relationship Specialty Start Date End Date Name, MD Terence [address] [place] [phone] PCP - General Family Medicine 01/13/16 documented as of this encounter
--- OUTSIDE RECORDS SUMMARY | 2024-12-11 16:10 | XMS_ITS | Encounter Summary ---
Author Organization [employer] Address [address] [place] [address] [place] [address] Care Team Providers Care Speech Scientist Name Role Phone Name, Terence MARIA Primary Care Provider [phone] Reason for Visit * Reason Comments Med Refill Encounter Details Date Type Department Care Team ([facility] Contact Info) Description 07/09/2023 Refill [facility] [address] [place] [phone] Cony Rodríguez FNP [address] [place] [address] [place] [address] Anxiety Social History Tobacco Use Types Packs/Day [...] Department Care Team (Late Contact Info) Description 03/16/2025 10:30 AM EDT Office Visit [facility] [address] [place] [address] [phone] Name, MD Terence [address] [place] [address] [phone] documented as of this encounter Visit Diagnoses Diagnosis Anxiety Anxiety state, unspecified documented in this encounter Additional Health Concerns Assessment Noted Time PHQ-9 Depression Total Score: 0 03/09/20 2:42 PM EDT documented as of this encounter Care Teams Speech Scientist Relationship Specialty Start Date End Date Name, MD Terence [address] [place] [phone] PCP - General Family Medicine 01/13/16 documented as of this encounter
--- OUTSIDE RECORDS SUMMARY | 2024-12-11 16:10 | XMS_ITS | Encounter Summary ---
Author Organization [employer] [facility] Address [address] [place] [address] 7 [place] [address] Care Team Providers Care Apprentice Embalmer Name Role Phone Name, Terence MARIA Primary Care Provider [phone] Reason for Visit * Reason Comments Med Refill Encounter Details Date Type Department Care Team ([facility] Contact Info) Description 12/21/2022 Refill [facility] [address] [place] [phone] NameTerence MD [address] [place] [phone] Anxiety Social History Tobacco Use Types Packs/Day [...] Upcoming Encounters Date Type Department Care Team ([facility] Contact Info) Description 03/16/2025 10:30 AM EDT Office Visit [facility] [address] [place] [address] Terence Law MD [address] [place] [address] [phone] documented as of this encounter Visit Diagnoses Diagnosis Anxiety Anxiety state, unspecified documented in this encounter Care Teams Apprentice Embalmer Relationship Specialty Start Date End Date Terence Law MD [address] [place] [phone] PCP - General Family Medicine 01/13/16 documented as of this encounter
--- OUTSIDE RECORDS SUMMARY | 2024-12-11 16:10 | XMS_ITS | Encounter Summary ---
Author Organization [employer] Address [address] [facility] 7t [place] [address] Care Team Providers Care Mechanical System Technician Name Role Phone Name, Terence MARIA Primary Care Provider Reason for Visit * Reason Onset Date Comments Med Refill 11/04/2023 Encounter Details Date Type Department Care Team ([facility] st Contact Info) Description 11/04/2023 Telephone [facility] [address] [place], [place] [phone] Name, MD Terence [address] [place] [address] Med Refill Social History Tobacco Use Types Packs/Day Years Used Date Smoking Tobacco: Former Cigarettes Smokeless Tobacco: Never Depression Answer Date Recorded Patient Health Questionnaire-9 Score 0 03/09/2023 Housing Stability Answer Date Recorded What is your housing situation today? I do not have housing (Staying with others, in a hotel, in a care home, living outside on the street, on a [...] 8:47 AM EST T/C to pt. Through [employer] id - [id number] to schedule apt. No answer. LVM to call back [phone]. * Telephone Encounter - Adrienne Olivia LPN [...] 40 MG tablet To be sent to: [facility]/pharmacy #[id number] documented in this encounter Plan of Treatment Upcoming Encounters Date Type Department Care Team (Late st Contact Info) Description 03/16/2025 10:30 AM EDT Office Visit [facility] [address] [place] [address] Name, MD Terence [address] [place] [address] documented as of this encounter Visit Diagnoses Not on filedocumented in this encounter Additional Health Concerns Assessment Noted Time PHQ-9 Depression Total Score: 0 03/09/20 23 2:42 PM EDT documented as of this encounter Care Teams Mechanical System Technician Relationship Specialty Start Date End Date Name, MD Terence [address] [place] [address] PCP - General Family Medicine 01/13/16 documented as of this encounter
--- OUTSIDE RECORDS SUMMARY | 2024-12-11 16:10 | XMS_ITS | Clinical Summary ---
Author Organization [employer] Address [address] [facility] 7t [place] [address] Care Team Providers Care Application Support Developer Name Role Phone Name, Terence MARIA Primary Care Provider [phone] Allergies No known active allergies Medications * This document contains information received from the source organization and may not represent a complete record from that organization. nitroglycerin (Nitro-Bid) 2 % ointment apply 1/2 inch by transdermal route topically per day 1 Active Nutritional Supplements (Ensure Nutrition Shake) liquid one can 3 times per day 9 Active ferrous sulfate 325 (65 Fe) MG EC tablet Take 1 tablet by mouth every other day. 3 Active naloxone (Narcan) 4 mg/0.1 mL nasal spray Administer 1 spray (4 mg) into affected nostril(s) if needed for opioid reversal. 2 each 1 3 Active acetaminophen (Tylenol) 500 MG tablet Take 2 tablets (1,000 mg) by mouth every 6 (six) hours if needed for moderate pain or fever for up to 25 doses. 40 tablet 3 Active nicotine polacrilex (Commit) 4 MG lozenge Dissolve 1 lozenge (4 mg) in the mouth every 2 (two) hours if needed for smoking cessation. 100 lozenge 4 Active PARoxetine (Paxil) 40 MG tablet Take 1 tablet (40 mg) by mouth in the morning. 30 tablet 3 4 01/10/20 25 Active hydrOXYzine HCl (Atarax) 25 MG tablet TAKE 1 TABLET BY MOUTH EVERY 8 HOURS NEEDED FOR ALLERGIES 90 tablet 1 4 Active docusate sodium (Colace) 100 MG capsuleIndicati ons:Uncomplicat ed opioid dependence (CMS/HCC) TAKE 1 TO 2 CAPSULES BY MOUTH AT BEDTIME NEEDED FOR CONSTIPATION 180 capsule 3 4 Active podofilox (Condylox) 0.5 % gel Apply to affected area twice a day x 3 days, then stop for 4 days. Repeat every week x 1 month 3.5 g 1 4 Active Mometasone Furoate (Asmanex HFA) 200 MCG/ACT aerosol Use 2 puffs BID 13 g 3 4 Active albuterol (Ventolin HFA) 108 (90 Base) MCG/ACT inhaler INHALE 2 PUFFS EVERY 4 HOURS IF NEEDED FOR WHEEZING. 18 g 3 4 Active cloNIDine (Catapres) 0.1 MG tablet TAKE 1 TABLET BY MOUTH 2 TIMES DAILY 60 tablet 4 Active gabapentin (Neurontin) 400 MG capsuleIndicati ons:Chronic pain syndrome take 1 capsule by oral route every day 30 capsule 3 5 Active NIFEdipine XL (Procardia XL) 60 MG 24 hr tablet Take 1 tablet (60 mg) by mouth Once per day. 90 tablet 1 5 Active Active Problems Problem Noted Date Diagnosed Date [...] Encounters Date Type Department Care Team Description 12/08/2024 Telephone [facility] [address] [place] [address] lAphonse De Luna [place] Appointment Request 11/28/2024 Telephone [facility] [address] [place] [address] Name, MD Terence Appointment Request 11/07/[address] [address] Terence Law MD Durable Medical Equipment 10/27/[address] [address] Magdalene Gonzalez RN Chronic pain syndrome 10/25/[address] [address] Terence Law MD Call Back Request 10/25/[address] [address] Terence Law MD 10/23/[address] [address] Alphonse De Luna MA DME-grab bars , raised toilet seat 10/09/[address] [address] Alphonse De Luna [place] Dme-grab bars, rasied toilet 10/02/[address] [address] Alphonse De Luna [place] Nov Recall\ from [...] 03/16/2025 10:30 AM EDT Office Visit [facility] [address] [place] [address] Name, MD Terence [address] [place] [address] Health Maintenance Due Date Last Done Comments [...] TMA, UROGENITAL Routine 11/20/2024 12:30 PM EST THINPREP IMAGING PAP AND HPV MRNA E6/E7 WITH REFLEX TO HPV 16,18/45 Routine 04/17/2024 11:13 AM EDT Uncomplicated opioid dependence ([facility]) from Last 3 Months or Most Recently Relevant to Health Maintenance Results * Chlamydia/N. Gonorrhoeae RNA, TMA, Urogenitial (11/20/2024 12:30 PM EST) CT PCR NOT DETECTED Not Detect. [facility] Comment:A not detected test result [...] psychologicalconsequences. NG PCR NOT DETECTED Not Detect. [facility] Comment:A not detected test result [...] PM EST 11/20/2024 3:00 PM EST Narrative [facility] - 11/21/2024 1:28 AM EST Vaginal us Generic External Data Provider LAB MICROBIOLOGY - GENERAL ORDERABLES Final Result [facility] [address] [place] [address] [phone] * ThinPrep Imaging Pap and HPV mRNA E6/E7 with Reflex to HPV 16,18/45 (04/17/2024 11:13 AM EDT) HPV 16 RNA [facility] HPV 18/45 RNA [facility] HPV nRNA E6/E7 Not Detected Not Detected [facility] Comment:Methodology: Transcr iption-Mediated AmplificationThis assay detects E6/E7 viral messenger RNA (mRNA) from 14high-risk HPV types (16,18,31,33,35,39,45,51,52,56,58,59,66,68).Cervical sources are required for HPV testing.If a vaginal source from a patient who has had atotal hysterectomy with removal of cervix wassubmitted, please contact the testing laboratoryfor alternative testing options.For additional information, please refer tohttp://education.FamilyLeaf/faq/PBC548m6(This link if provided for information/educational purposes only.)THIS TEST WAS PERFORMED AT:[employer] [place] [id number] DENT MD SOURCE: SEE NOTE [facility] Comment:Cervix Report Status: [facility] Clinical Information: SEE NOTE [facility] Comment:ROUTINE LMP: SEE NOTE [facility] Comment:NONE GIVEN Prev. PAP: SEE NOTE [facility] Comment:NONE GIVEN Prev. BX: SEE NOTE [facility] Comment:NONE GIVEN Statement Of Adequacy: SEE NOTE [facility] Comment:Satisfactory for flores luation.Endocervical/transformation zone componentpresent. General Categorization: [facility] Interpretation/Result: SEE NOTE [facility] Comment:Cytology Results: Ne gative for intraepitheliallesion or malignancy. Cytology Comment SEE NOTE [facility] Comment:This Pap test has be en evaluated with computerassisted technology. Retail Sales Professional: SEE NOTE [facility] Comment:YP, CT(ASCP)CT yeny [place] location: [place] [address] Review Retail Sales Professional: [facility] Pathologist [facility] PAP Infection SEE NOTE [facility] Comment:Shift in vaginal leonard ra suggestive of bacterialvaginosis. See Note SEE NOTE [facility] Comment:EXPLANATORY NOTE:The Pap is a [...] AM EDT 04/17/2024 4:19 PM EDT Narrative [facility] - 04/25/2024 1:06 PM EDT SEE SCANNED RESULTS IN EMRRCEREVIX us Arin Palomino [facility] PATHOLOGY ORDERABLES Final Result [facility] [address] [place] [address] [phone] from Last 3 Months or Most Recently Relevant to Health Maintenance [facility] Care Teams Application Support Developer Relationship Specialty Start Date End Date Name, MD Terence [address] [place] [address] MALORIE Darby [phone] PCP - General Family Medicine 01/13/16
--- OUTSIDE RECORDS SUMMARY | 2024-12-11 16:10 | XMS_ITS | Encounter Summary ---
Author Organization [employer] Address [address] [facility] [address] 7[address] [place] [address] Care Team Providers Care Integration Consultant Name Role Phone Name, Terence MARIA Primary Care Provider [phone] Reason for Visit * Reason Onset Date Comments Appointment Request 12/08/2024 Encounter Details Date Type Department Care Team ([facility] st Contact Info) Description 12/08/2024 Telephone [facility] MED[facility]INE [address] [place], [place] [phone] Alphonse De Luna MA Appointment Request Social History Tobacco Use Types [...] Encounter - Alphonse De Luna MA - 12/08/2024 2:02 PM EST T/c placed to pt returning phone call back, pt is requesting to see pcp, I notice pt is due for PE for May offer pt for appt for 03/16/25 @ 10:30 for PE , pt agrees to come in, told pt if any concernsshe could always come in to the walk-in anytime. Pt agrees with plans documented in this encounter Plan of Treatment Upcoming Encounters Date Type Department Care Team (Late st Contact Info) Description 03/16/2025 10:30 AM EDT Office Visit [facility] [address] [place] [address] Name, MD Terence [address] [place] [address] documented as of this encounter Visit Diagnoses Not on filedocumented in this encounter Additional Health Concerns Assessment Noted Time PHQ-9 Depression Total Score: 14 024 2:43 PM EST documented as of this encounter Care Teams Integration Consultant Relationship Specialty Start Date End Date Name, MD Terence [address] [place] [address] PCP - General Family Medicine 01/13/16 documented as of this encounter
--- OUTSIDE RECORDS SUMMARY | 2024-12-11 16:10 | XMS_ITS | Encounter Summary ---
Author Organization [employer] Address [address] [facility] 7t [place] [address] Care Team Providers Care Audio Visual Specialist Name Role Phone Name, Terence MARIA Primary Care Provider [phone] Reason for Visit * Reason Onset Date Comments VNA Orders 02/26/2023 Vitamin Deficiency 02/26/2023 Pt no show to hospital follow up appointment. Encounter Details Date Type Department Care Team ([facility] st Contact Info) Description 02/26/2023 Telephone [facility] MEDICINE [address] [place], [place] [phone] Name, MD Terence [address] [place], [place] [phone] VNA Orders; Vitamin Deficiency (Pt no show [...] 8:16 AM EDT Tc princess Urrutia at [employer] [facility] [employer] [facility] calling in regards to custodial wound care orders. Ghada would like to know if PCP will sign orders due today. Patient was last seen with Dr. Law 07/08/20. Patient does have an upcoming PE appt on 03/09/23. documented in this encounter Plan of Treatment Upcoming Encounters Date Type Department Care Team (Late st Contact Info) Description 03/16/2025 10:30 AM EDT Office Visit [facility] MEDICINE [address] [place] [address] Name, MD Terence [address] [place] [address] documented as of this encounter Visit Diagnoses Not on filedocumented in this encounter Care Teams Audio Visual Specialist Relationship Specialty Start Date End Date NameTerence MD [address] [place] [address] PCP - General Family Medicine 01/13/16 documented as of this encounter
== END 2024-12-11 14:04 | disposition home or self-care (01) ==
LOC: HO.US 14:03
PROVIDERS: PCP Internal Medicine Geriatric Medicine; Visit Provider Obstetrics & Gynecology
DX: N93.9 Abnormal uterine and vaginal bleeding, unspecified (principal)
CPT/HCPCS: 76830; 76856

== ENCOUNTER → 2024-12-11 14:05 | Outpatient (BNV) | payer MEDICAID, SELFPAY | PROVIDERS: PCP Internal Medicine Geriatric Medicine; Visit Provider Radiology Diagnostic Radiology | DX: N93.9 Abnormal uterine and vaginal bleeding, unspecified (principal) | CPT/HCPCS: 76830; 76856 ==

== ENCOUNTER 2025-02-06 09:57 | Outpatient (REF) | payer MEDICAID, SELFPAY ==
--- OUTSIDE RECORDS SUMMARY | 2025-02-06 13:11 | XMS_ITS | Encounter Summary ---
Author Organization [employer] Address 75 [facility] 7t [place] [address] Care Team Providers Care Watch Dial Stoner Name Role Phone Name, Terence MARIA Primary Care Provider [phone] Reason for Visit * Reason Onset Date Comments Appointment Request 11/28/2024 Encounter Details Date Type Department Care Team ([facility] st Contact Info) Description 11/28/2024 Telephone [facility] [address] [place], [place] [phone] Name, MD Terence [address] [place], [place] [phone] Appointment Request Social History Tobacco Use Types [...] pt requesting schedule f/up appt with pcp. [phone] puerto rican documented in this encounter Plan of Treatment Upcoming Encounters Date Type Department Care Team (Late st Contact Info) Description 03/16/2025 10:30 AM EDT Office Visit [facility] [address] [place] [address] Name, MD Terence [address] [place] [address] documented as of this encounter Visit Diagnoses Not on filedocumented in this encounter Additional Health Concerns Assessment Noted Time PHQ-9 Depression Total Score: 14 024 2:43 PM EST documented as of this encounter Care Teams Watch Dial Stoner Relationship Specialty Start Date End Date Name, MD Terence [address] [place] [address] PCP - General Family Medicine 01/13/16 documented as of this encounter
--- OUTSIDE RECORDS SUMMARY | 2025-02-06 13:11 | XMS_ITS | Encounter Summary ---
Author Organization [employer] Address [address] [facility] [address] 7t [place] [address] Care Team Providers Care Beater Engineer Name Role Phone Name, Terence MARIA Primary Care Provider [phone] Encounter Details Date Type Department Care Team ([facility] st Contact Info) Description 08/30/2023 Telephone [facility] MEDICINE [address] [place], [place] [phone] Name, MD Terence [address] [place], [place] [phone] Social History Tobacco Use Types Packs/Day Years [...] 03/09 PE notes to be faxed to [phone]. States she faxed a release form to medical records and has not received anything back. Any questions, please contact yumiko at [phone] documented in this encounter Plan of Treatment Upcoming Encounters Date Type Department Care Team (Late st Contact Info) Description 03/16/2025 10:30 AM EDT Office Visit [facility] MED[facility]INE [address] [place] [address] Name, MD Terence [address] [place] [address] documented as of this encounter Visit Diagnoses Not on filedocumented in this encounter Additional Health Concerns Assessment Noted Time PHQ-9 Depression Total Score: 0 03/09/20 2:42 PM EDT documented as of this encounter Care Teams Beater Engineer Relationship Specialty Start Date End Date Name, MD Terence [address] [place] [address] PCP - General Family Medicine 01/13/16 documented as of this encounter
--- OUTSIDE RECORDS SUMMARY | 2025-02-06 13:11 | XMS_ITS | Encounter Summary ---
Author Organization [employer] Address [address] [facility] [address] 7t [place] [address] Care Team Providers Care Conservation Of Resources Commissioner Name Role Phone Name, Terence MARIA Primary Care Provider [phone] Encounter Details Date Type Department Care Team ([facility] st Contact Info) Description 04/21/[address] [facility] MED[facility]INE [address] [place], [place] [phone] Arin Palomino CN [address] [place], [place] [phone] Social History Tobacco Use Types Packs/Day Years [...] t he electric, gas, oil or water [employer] threatened to shut off services in your [...] 03/16/2025 10:30 AM EDT Office Visit [facility] [address] [place] [address] Name, MD Terence [address] [place] [address] documented as of this encounter Procedures Procedure Name Priority Date/Time Associated Diagnosis Comments CHLAMYDIA/N. GONORRHOEAE RNA, TMA, UROGENITAL Routine 11/20/2024 12:30 PM EST documented in this encounter Results * Chlamydia/N. Gonorrhoeae RNA, TMA, Urogenitial (11/20/2024 12:30 PM EST) CT PCR NOT DETECTED Not Detect. [facility] Comment:A not detected test result does [...] psychologicalconsequences. NG PCR NOT DETECTED Not Detect. [facility] Comment:A not detected test result does [...] PM EST 11/20/2024 3:00 PM EST Narrative [facility] - 11/21/2024 1:28 AM EST Vaginal us Generic External Data Provider LAB MICROBIOLOGY - GENERAL ORDERABLES Final Result Performing Organization Address City/State/[facility] Co de Phone Number [facility] [address] [place] [phone] documented in this encounter Visit Diagnoses Not on filedocumented in this encounter Additional Health Concerns Assessment Noted Time PHQ-9 Depression Total Score: 14 024 2:43 PM EST documented as of this encounter Care Teams Conservation Of Resources Commissioner Relationship Specialty Start Date End Date Name, MD Terence [address] [place] [phone] PCP - General Family Medicine 01/13/16 documented as of this encounter
--- OUTSIDE RECORDS SUMMARY | 2025-02-06 13:11 | XMS_ITS | Encounter Summary ---
Author Organization [employer] Address [address] [place] [address] [place] [address] Care Team Providers Care Boiler Repairman Name Role Phone Name, Terence MARIA Primary Care Provider [phone] Reason for Visit * Reason Comments Med Refill Encounter Details Date Type Department Care Team ([facility] Contact Info) Description 07/09/2023 Refill [facility] [address] [place] [address] [phone] Cony Rodríguez FNP [address] [place] [address] Dept [place] [address] Anxiety Social History Tobacco Use Types Packs/Day [...] Description 03/16/2025 10:30 AM EDT Office Visit [facility] [address] [place] [address] [phone] Name, MD Terence [address] [place] [address] [phone] documented as of this encounter Visit Diagnoses Diagnosis Anxiety Anxiety state, unspecified documented in this encounter Additional Health Concerns Assessment Noted Time PHQ-9 Depression Total Score: 0 03/09/20 2:42 PM EDT documented as of this encounter Care Teams Boiler Repairman Relationship Specialty Start Date End Date Name, MD Terence [address] [place] [address] PCP - General Family Medicine 01/13/16 documented as of this encounter
--- OUTSIDE RECORDS SUMMARY | 2025-02-06 13:11 | XMS_ITS | Encounter Summary ---
Author Organization [employer] Address 75 [facility] 7t [place] [address] Care Team Providers Care Gem Setter Name Role Phone Name, Terence MARIA Primary Care Provider [phone] Reason for Visit * Reason Onset Date Comments Med Refill 11/04/2023 Encounter Details Date Type Department Care Team ([facility] st Contact Info) Description 11/04/2023 Telephone [facility] [address] [place], [place] [phone] Name, MD Terence [address] [place] [address] Med Refill Social History Tobacco Use Types Packs/Day Years Used Date Smoking Tobacco: Former Cigarettes Smokeless Tobacco: Never Depression Answer Date Recorded Patient Health Questionnaire-9 Score 0 03/09/2023 Housing Stability Answer Date Recorded What is your housing situation today? I do not have housing (Staying with others, in a hotel, in a long-term, living outside on the street, on a [...] 8:47 AM EST T/C to pt. Through [place] id - [id number] to schedule apt. No answer. LVM to call back [phone]. * Telephone Encounter - Adrienne Olivia LPN [...] 40 MG tablet To be sent to: [facility]/pharmacy #[id number] documented in this encounter Plan of Treatment Upcoming Encounters Date Type Department Care Team (Late st Contact Info) Description 03/16/2025 10:30 AM EDT Office Visit [facility] [address] [place] [address] Name, MD Terence [address] [place] [address] documented as of this encounter Visit Diagnoses Not on filedocumented in this encounter Additional Health Concerns Assessment Noted Time PHQ-9 Depression Total Score: 0 03/09/20 23 2:42 PM EDT documented as of this encounter Care Teams Gem Setter Relationship Specialty Start Date End Date Name, MD Terence [address] [place] [address] PCP - General Family Medicine 01/13/16 documented as of this encounter
--- OUTSIDE RECORDS SUMMARY | 2025-02-06 13:11 | XMS_ITS | Encounter Summary ---
Author Organization [employer] Address 75 [facility] 7t [place] [address] Care Team Providers Care Fuel Cell Binder Name Role Phone Name, Terence MARIA Primary Care Provider [phone] Reason for Visit * Reason Onset Date Comments [facility] Orders 02/26/2023 Vitamin Deficiency 02/26/2023 Pt no show to hospital follow up appointment. Encounter Details Date Type Department Care Team ([facility] st Contact Info) Description 02/26/2023 Telephone [facility] [address] [place], [place] [phone] Name, MD Terence [address] [place], [place] [phone] VNA Orders; Vitamin Deficiency (Pt no show [...] 8:16 AM EDT Tc princess Urrutia [facility] calling in regards to snf wound care orders. Ghada would like to know if PCP will sign orders due today. Patient was last seen with Dr. Law 07/08/20. Patient does have an upcoming PE appt on 03/09/23. documented in this encounter Plan of Treatment Upcoming Encounters Date Type Department Care Team (Late st Contact Info) Description 03/16/2025 10:30 AM EDT Office Visit [facility] MED[facility]INE [address] [place] [phone] Name, MD Terence [address] [place] [address] documented as of this encounter Visit Diagnoses Not on filedocumented in this encounter Care Teams Fuel Cell Binder Relationship Specialty Start Date End Date NameTerence MD [address] [place] [phone] PCP - General Family Medicine 01/13/16 documented as of this encounter
--- OUTSIDE RECORDS SUMMARY | 2025-02-06 13:12 | XMS_ITS | Encounter Summary ---
Author Organization [facility] Address [address] [place] [address] 7 [place] [address] Care Team Providers Care Curb Worker Name Role Phone Name, Terence MARIA Primary Care Provider [phone] Reason for Visit * Reason Comments Med Refill Encounter Details Date Type Department Care Team ([facility] Contact Info) Description 12/21/2022 Refill [facility] [address] [place] [address] 13441 NameTerence MD [address] [place] [address] [phone] Anxiety Social History Tobacco Use Types Packs/Day [...] Upcoming Encounters Date Type Department Care Team ([facility] Contact Info) Description 03/16/2025 10:30 AM EDT Office Visit [facility] [address] [place] [address] 20123 Terecne Law MD [address] [place] [address] [phone] documented as of this encounter Visit Diagnoses Diagnosis Anxiety Anxiety state, unspecified documented in this encounter Care Teams Curb Worker Relationship Specialty Start Date End Date Terence Law MD [address] [place] [address] [phone] PCP - General Family Medicine 01/13/16 documented as of this encounter
--- OUTSIDE RECORDS SUMMARY | 2025-02-06 13:12 | XMS_ITS | Clinical Summary ---
Author Organization [employer] Address [address] [facility] 7t [place] [address] Care Team Providers Care Hogshead Liner Name Role Phone Name, Terence MARIA Primary Care Provider [phone] Allergies No known active allergies Medications * [...] Type Department Care Team Description 01/05/2025 Refill [facility] [address] [place] [address] Name, MD Terence Chronic obstructive pulmonary disease, unspecified COPD type (CMS/HCC) (Primary Dx) 12/29/2024 Population Health Risk Score Community Care [facility] ([facility]) Department [address] [place] [address] [phone] Provider, Population Health Generic 12/25/2024 Telephone [facility] [address] [place] [address] Terence Law MD Referral 12/11/2024 Orders Only [facility] External Provider, [facility] 12/08/2024 Telephone [facility] [address] [place] [address] Alphonse De Luna [place] Appointment Request 11/28/2024 Telephone [facility] [address] [place] [address] Terence Law MD Appointment Request from Last [...] 10:30 AM EDT Office Visit [facility] [address] [place] [address] Name, MD Terence [address] [place] [address] Health Maintenance Due Date Last Done Comments [...] EST Narrative 12/12/2024 10:07 AM EST ? [facility] ?[address] ?[place] [address] ? Ultrasound Report ? Signed ? Patient: Mu,Maddie ?MR#: [id number] ?? [id number] ? : 1980 ?Acct:[id number] ? Age/Sex: 44 / F ?ADM Date: 12/11/24 ? Loc: HO.US ? Attending Dr: Greg Javier MD ? Ordering Physician: Greg Javier MD ?? Date of Service: 12/11/24 ?? Procedure(s): US pelvic and transvaginal ?? Accession Number(s): [id number] ? cc: Terence Law MD; Greg Javier [...] DD/ 1415 ? TD/TT: 12/11/24 1429 ? After School Program Teacher: ? Procedure Note Donotuseinterpreter, Image - 12/12/2024 [place] [address] Ultrasound Report Signed Patient: Maddie DobbinsMR#: [id number] : 1980Acct:[id number] Age/Sex: 44 / FADM Date: 12/11/24 Loc: HO.US Attending Dr: Greg Javier MD Ordering Physician: Greg Javier MD Date of Service: 12/11/24 Procedure(s): US pelvic and transvaginal Accession Number(s): [id number] cc: Terence Law MD; Greg Javier MD [...] 12/12/24 1004 DD/ 1415 TD/TT: 12/11/24 1429 After School Program Teacher: [facility] External Provider IMG US PROCEDURES Final Result * Chlamydia/N. Gonorrhoeae RNA, TMA, Urogenitial (11/20/2024 12:30 PM EST) CT PCR NOT DETECTED Not Detect. [facility] Comment:A not detected test result does [...] psychologicalconsequences. NG PCR NOT DETECTED Not Detect. [facility] Comment:A not detected test result does [...] PM EST 11/20/2024 3:00 PM EST Narrative [facility] - 11/21/2024 1:28 AM EST Vaginal us Generic External Data Provider LAB MICROBIOLOGY - GENERAL ORDERABLES Final Result [facility] [address] [place] [address] [phone] * ThinPrep Imaging Pap and HPV mRNA E6/E7 with Reflex to HPV 16,18/45 (04/17/2024 11:13 AM EDT) HPV 16 RNA [facility] HPV 18/45 RNA [facility] HPV nRNA E6/E7 Not Detected Not Detected [facility] Comment:Methodology: Transcr iption-Mediated AmplificationThis assay detects E6/E7 viral messenger RNA (mRNA) from 14high-risk HPV types (16,18,31,33,35,39,45,51,52,56,58,59,66,68).Cervical sources are required for HPV testing.If a vaginal source from a patient who has had atotal hysterectomy with removal of cervix wassubmitted, please contact the testing laboratoryfor alternative testing options.For additional information, please refer tohttp://education.[employer]/faq/AYT385m8(This link if provided for information/educational purposes only.)THIS TEST WAS PERFORMED AT:[facility] [place] [phone] DENT MD SOURCE: SEE NOTE [facility] Comment:Cervix Report Status: [facility] Clinical Information: SEE NOTE [facility] Comment:ROUTINE LMP: SEE NOTE [facility] Comment:NONE GIVEN Prev. PAP: SEE NOTE [facility] Comment:NONE GIVEN Prev. BX: SEE NOTE [facility] Comment:NONE GIVEN Statement Of Adequacy: SEE NOTE [facility] Comment:Satisfactory for flores luation.Endocervical/transformation zone componentpresent. General Categorization: [facility] Interpretation/Result: SEE NOTE [facility] Comment:Cytology Results: Ne gative for intraepitheliallesion or malignancy. Cytology Comment SEE NOTE [facility] Comment:This Pap test has be en evaluated with computerassisted technology. Electric Meter Tester: SEE NOTE [facility] Comment:YP, CT(ASCP)CT yeny [place] location: [place] [address] Review Electric Meter Tester: TNP [facility] Pathologist [facility] PAP Infection SEE NOTE [facility] Comment:Shift in vaginal leonard ra suggestive of bacterialvaginosis. See Note SEE NOTE [facility] Comment:EXPLANATORY NOTE:The Pap is a screening test for cervical cancer. It isnot a diagnostic test and is subject to false negativeand false positive results. It is most reliable when asatisfactory sample, regularly obtained, is submittedwith relevant clinical findings and history, and whenthe Pap result is evaluated along with historic andcurrent clinical information. 04/17/2024 11:1 3 AM EDT 04/17/2024 4:19 PM EDT Narrative [facility] - 04/25/2024 1:06 PM EDT SEE SCANNED RESULTS IN EMRRCEREVIX us Arin Palomino [facility] PATHOLOGY ORDERABLES Final Result [facility] [address] [place] [address] [phone] from Last 3 Months or Most Recently Relevant to Health Maintenance Insurance [facility] C3 * Guarantor: Maddie Dobbins Account Type Relation to Patient Date of Phone Billing Address Personal/Family Self [address] [facility] [address] [place] Care Teams Hogshead Liner Relationship Specialty Start Date End Date Name, MD Terence [address] [place] [address] [place] [address] PCP - General Family Medicine 01/13/16
--- OUTSIDE RECORDS SUMMARY | 2025-02-06 13:12 | XMS_ITS | Encounter Summary ---
Author Organization [employer] Address [address] [facility] [address] 7t [place] [address] Care Team Providers Care Dry Pan Charger Name Role Phone Name, Terence MARIA Primary Care Provider [phone] Encounter Details Date Type Department Care Team (Late st Contact Info) Description 11/08/2023 Orders Only [facility] [address] [place], [place] [phone] Ada Bridges RN Uncomplicated opioid dependence (CMS/HCC) [...] 10:30 AM EDT Office Visit [facility] [address] [place] [address] Name, MD Terence [address] [place] [address] Scheduled Orders Name Type Priority Associated Diagnoses [...] with Reflexes Lab Routine Uncomplicated opioid dependence ([facility]) Expected: 11/08/2023 (Approximate), Expires: 11/08/2024 Syphilis Screen Lab Routine Uncomplicated opioid dependence ([facility]) Expected: 11/08/2023 (Approximate), Expires: 11/08/2024 T-SPOT??.TB Lab Routine Uncomplicated opioid dependence ([facility]) Expected: 11/08/2023 (Approximate), Expires: 11/08/2024 documented as of this encounter Procedures Procedure Name Priority Date/Time Associated Diagnosis Comments THINPREP IMAGING PAP AND HPV MRNA E6/E7 WITH REFLEX TO HPV 16,18/45 Routine 04/17/2024 11:13 AM EDT Uncomplicated opioid dependence ([facility]) documented in this encounter Results * ThinPrep Imaging Pap and HPV mRNA E6/E7 with Reflex to HPV 16,18/45 (04/17/2024 11:13 AM EDT) HPV 16 RNA [facility] HPV 18/45 RNA [facility] HPV nRNA E6/E7 Not [...] alternative testing options.For additional information, please refer tohttp://education.[employer]/faq/WSO235s8(This link if provided for information/educational purposes only.)THIS TEST WAS PERFORMED AT:[facility] [place] [phone] DENT MD SOURCE: SEE NOTE [facility] Comment:Cervix Report Status: [facility] Clinical Information: SEE NOTE [facility] [...] for flores luation.Endocervical/transformation zone componentpresent. General Categorization: [facility] Interpretation/Result: SEE NOTE [facility] Comment:Cytology Results: Ne gative for intraepitheliallesion or malignancy. Cytology Comment SEE NOTE [facility] Comment:This Pap test has be en evaluated with computerassisted technology. Automobile Repair Service Estimator: SEE NOTE [facility] Comment:YP, CT(ASCP)CT scree kaela location: [place] [address] Review Automobile Repair Service Estimator: [facility] Pathologist [facility] PAP Infection SEE NOTE [facility] Comment:Shift in vaginal leonard ra [...] SCANNED RESULTS IN EMRRCEREVIX us Arin Palomino [facility] PATHOLOGY ORDERABLES Final Result [facility] [address] [place] [address] [phone] documented in this encounter Visit Diagnoses Diagnosis Uncomplicated opioid dependence (CMS/HCC) documented in this encounter Additional Health Concerns Assessment Noted Time PHQ-9 Depression Total Score: 0 03/09/20 2:42 PM EDT documented as of this encounter Care Teams Dry Pan Charger Relationship Specialty Start Date End Date Name, MD Terence [address] [place] [address] PCP - General Family Medicine 01/13/16 documented as of this encounter
== END 2025-02-06 09:58 | disposition home or self-care (01) ==
LOC: HO.LNP 09:57
PROVIDERS: PCP Internal Medicine Geriatric Medicine; Visit Provider Obstetrics & Gynecology
DX: N93.9 Abnormal uterine and vaginal bleeding, unspecified (principal); N90.89 Other specified noninflammatory disorders of vulva and perineum; L91.8 Other hypertrophic disorders of the skin
CPT/HCPCS: 56605; 58100; 81025; 88305; 88312

== ENCOUNTER 2025-02-06 09:57 | Outpatient (AMB) | payer MEDICAID, SELFPAY ==
--- NOTE | 2025-02-06 10:00 | MHC.OFFVIS ---
Intake Visit Reasons: ultrasound follow up/ EMB/ skin tag removal Allergies No Known Allergies [NKA] Allergy (Verified 11/20/24 12:45) HPI Comments Details: Presenting for EMB and left labial lesion excision [facility] Medical History Arthritis Lupus (systemic lupus erythematosus) Raynaud disease Family History Sister Breast cancer Female Reproductive History Menstrual Age of Menarche: 13 Office Procedures Endometrial Biopsy Details: The patient was counseled regarding the indication and benefits of endometrial sampling to rule out endometrial pathology including not limited to endometrial hyperplasia or endometrial cancer and others; The alternatives (Either do nothing vs. hysteroscopy D&C) & the risks were discussed with the patient including but not limited: pain, uterine perforation, bleeding, infection, possible injury to bladder, bowel, ureter, possible need for blood transfusion with all its possible risks. The patient verbalized understanding all questions answered and signed consent. Urine test done in the office was negative The patient was placed into the dorsal lithotomy position; a speculum was inserted in the vagina. Using aseptic technique for the procedure, the cervix was cleansed with Betadine. The anterior lip of the cervix was grasped with a single tooth tenaculum. The uterus was sounded to 7 cm with a 4 mm Pipelle was used. Tissues samples were obtained and placed in formalin, in a patient labeled container and sent to the pathology department. At the end of the procedure, there was minimal bleeding noted The patient tolerated the procedure well and was discharged in good condition with the following instructions: Nothing in the vagina until the bleeding stops. No sex until the bleeding stops, to call if any of the following occurs: fever (>100.4), flu-like symptoms, abdominal pain, heavy bleeding, four smelling vaginal discharge. The patient was instructed to schedule a Follow up appointment in 2 weeks to discuss pathology results of the biopsy and treatment options. This note was generated with a voice recognition program. Some errors may have been overlooked during the review of this note. Sometimes these errors may affect the content or meaning of a given sentence. 83603-Oxxezwytalu Biopsy POSTDOCTORAL SCIENTIST Biopsy Before the procedure was started d/w patient the procedure, alternatives ( do nothing, medical rx), & all the risks associated with the procedure ( bleeding , infection, vulvar scarring, painful intercourse, injury to vessels, possible need for transfusion with all its risks) then patient signed the consent. Preop dx: Left posterior labia majora lesion Op: Left posterior labia major excision Post op: Same Anesthesia: Lidocaine 1% 3cc used Procedure: Using betadine the area was scrubbed and draped in the usual manner. 3 cc of lidocaine was used for anesthesia at the Left posterior labia major area ; using scissors and pickup the left vulvar lesion was excised, Vicryl 4.0 was used to approximate the edges. Pressure was used for hemostasis. The patient tolerated the procedure well. Discharge Instructions: The patient was instructed to schedule an appointment in 2 weeks for follow-up and to call if temp>100.4, area of the biopsy redness or pain, nausea/vomiting. This note was generated with a voice recognition program. Some errors may have been overlooked during the review of this note. Sometimes these errors may affect the content or meaning of a given sentence. 30383-Bsaphy of Vulva/Perineum Procedure code (CPT) selection complete Assessment & Plan Assessment & Plan (1) Abnormal uterine bleeding (AUB): Code(s): N93.9 - Abnormal uterine and vaginal bleeding, unspecified Category: Medical Plan: EMB done, see procedure note (2) Labial lesion: Comment: Left posterior labia majora Code(s): N90.89 - Other specified noninflammatory disorders of vulva and perineum Category: Medical Plan: Left posterior labia majora lesion excision done, see procedure note Orders: Orders AMB Endometrial Biopsy Today N93.9 - Abnormal uterine and vaginal bleeding, unspecified AMB POSTDOCTORAL SCIENTIST Biopsy Today N90.89 - Other specified noninflammatory disorders of vulva and perineum Coding Level of Care Code Procedure Only Diagnoses Abnormal uterine bleeding (AUB) N93.9 Labial lesion N90.89 CPT Codes Endometrial Biopsy - CPT: 90876-Tfbrnawmflk Biopsy ([id number]) POSTDOCTORAL SCIENTIST Biopsy - CPT: 56958-Fhqpui of Vulva/Perineum ([id number])
--- OUTSIDE RECORDS SUMMARY | 2025-02-06 11:13 | XMS_ITS | Encounter Summary ---
Author Organization [employer] Address [address] [place] [address] [place] [address] Care Team Providers Care Corncob Pipes Assembler Name Role Phone Name, Terence MARIA Primary Care Provider [phone] Reason for Visit * Reason Comments Med Refill Encounter Details Date Type Department Care Team ([facility] Contact Info) Description 07/09/2023 Refill [facility] MEDICINE [address] [place] [address] [phone] Cony Rodríguez FNP [address] [place] [address] [place] [address] Anxiety Social History Tobacco Use Types Packs/Day [...] Description 03/16/2025 10:30 AM EDT Office Visit [facility] MEDICINE [address] [place] [address] [phone] Name, MD Terence [address] [place] [address] [phone] documented as of this encounter Visit Diagnoses Diagnosis Anxiety Anxiety state, unspecified documented in this encounter Additional Health Concerns Assessment Noted Time PHQ-9 Depression Total Score: 0 03/09/20 2:42 PM EDT documented as of this encounter Care Teams Corncob Pipes Assembler Relationship Specialty Start Date End Date Name, MD Terence [address] [place] [address] PCP - General Family Medicine 01/13/16 documented as of this encounter
--- OUTSIDE RECORDS SUMMARY | 2025-02-06 11:13 | XMS_ITS | Encounter Summary ---
Author Organization [employer] Address [address] [facility] 7t [place] [address] Care Team Providers Care Still Operator Whiskey Name Role Phone Name, Terence MARIA Primary Care Provider [phone] Reason for Visit * Reason Onset Date Comments VNA Orders 02/26/2023 Vitamin Deficiency 02/26/2023 Pt no show to hospital follow up appointment. Encounter Details Date Type Department Care Team ([facility] st Contact Info) Description 02/26/2023 Telephone [facility] MEDICINE [address] [place], [place] [phone] Name, MD Terence [address] [place], [place] [phone] VNA Orders; Vitamin Deficiency (Pt no show [...] 8:16 AM EDT Tc princess Urrutia at [facility] calling in regards to [facility] wound care orders. Ghada would like to know if PCP will sign orders due today. Patient was last seen with Dr. Law 07/08/20. Patient does have an upcoming PE appt on 03/09/23. documented in this encounter Plan of Treatment Upcoming Encounters Date Type Department Care Team (Late st Contact Info) Description 03/16/2025 10:30 AM EDT Office Visit [facility] MEDICINE [address] [place] [phone] Name, MD Terence [address] [place] [address] documented as of this encounter Visit Diagnoses Not on filedocumented in this encounter Care Teams Still Operator Whiskey Relationship Specialty Start Date End Date NameTerence MD [address] [place] [address] PCP - General Family Medicine 01/13/16 documented as of this encounter
--- OUTSIDE RECORDS SUMMARY | 2025-02-06 11:13 | XMS_ITS | Encounter Summary ---
Author Organization [employer] Address [address] [address] 7t [place] [address] Care Team Providers Care Wild Oyster Harvester Name Role Phone Name, Terence MARIA Primary Care Provider [phone] Encounter Details Date Type Department Care Team (Late st Contact Info) Description 11/08/2023 Orders Only [facility] MEDICINE [address] [place], [place] [phone] Ada Bridges RN Uncomplicated opioid dependence (CMS/HCC) Social History Tobacco Use Types Packs/Day Years Used Date Smoking Tobacco: Every Day Cigarettes Smokeless Tobacco: Never Depression Answer Date Recorded Patient Health Questionnaire-9 Score 0 03/09/2023 Housing Stability Answer Date Recorded What is your housing situation today? I do not have housing (Staying with others, in a hotel, in a group home, living outside on the street, on [...] Description 03/16/2025 10:30 AM EDT Office Visit [facility] MEDICINE [address] [place] [phone] Name, MD Terence [address] [place] [address] Scheduled Orders Name Type Priority Associated Diagnoses [...] with Reflexes Lab Routine Uncomplicated opioid dependence ([facility]) Expected: 11/08/2023 (Approximate), Expires: 11/08/2024 Syphilis Screen Lab Routine Uncomplicated opioid dependence ([facility]) Expected: 11/08/2023 (Approximate), Expires: 11/08/2024 T-SPOT??.TB Lab Routine Uncomplicated opioid dependence ([facility]) Expected: 11/08/2023 (Approximate), Expires: 11/08/2024 documented as of this encounter Procedures Procedure Name Priority Date/Time Associated Diagnosis Comments THINPREP IMAGING PAP AND HPV MRNA E6/E7 WITH REFLEX TO HPV 16,18/45 Routine 04/17/2024 11:13 AM EDT Uncomplicated opioid dependence ([facility]) documented in this encounter Results * ThinPrep Imaging Pap and HPV mRNA E6/E7 with Reflex to HPV 16,18/45 (04/17/2024 11:13 AM EDT) HPV 16 RNA [facility] HPV 18/45 RNA [facility] HPV nRNA E6/E7 Not Detected Not Detected [facility] Comment:Methodology: Transcr iption-Mediated AmplificationThis assay detects E6/E7 viral messenger RNA (mRNA) from 14high-risk HPV types (16,18,31,33,35,39,45,51,52,56,58,59,66,68).Cervical sources are required for HPV testing.If a vaginal source from a patient who has had atotal hysterectomy with removal of cervix wassubmitted, please contact the testing laboratoryfor alternative testing options.For additional information, please refer [email or web address]/[email or web address](This link if provided for information/educational purposes only.)THIS TEST WAS PERFORMED AT:[employer] [facility] [place] [phone] DENT MD SOURCE: SEE NOTE [facility] Comment:Cervix Report Status: [facility] Clinical Information: SEE NOTE [facility] Comment:ROUTINE LMP: SEE NOTE [facility] Comment:NONE GIVEN Prev. PAP: SEE NOTE [facility] Comment:NONE GIVEN Prev. BX: SEE NOTE [facility] Comment:NONE GIVEN Statement Of Adequacy: SEE NOTE [facility] Comment:Satisfactory for flores luation.Endocervical/transformation zone componentpresent. General Categorization: [facility] Interpretation/Result: SEE NOTE [facility] Comment:Cytology Results: Ne gative for intraepitheliallesion or malignancy. Cytology Comment SEE NOTE [facility] Comment:This Pap test has be en evaluated with computerassisted technology. Paper Baler: SEE NOTE [facility] Comment:YP, CT(ASCP)CT scree kaela location: [place] [address] Review Paper Baler: [facility] Pathologist [facility] PAP Infection SEE NOTE [facility] Comment:Shift in vaginal leonard ra suggestive of bacterialvaginosis. See Note SEE NOTE [facility] Comment:EXPLANATORY NOTE:The Pap is [...] AM EDT 04/17/2024 4:19 PM EDT Narrative [facility] - 04/25/2024 1:06 PM EDT SEE SCANNED RESULTS IN EMRRCEREVIX us Arin Palomino [facility] PATHOLOGY ORDERABLES Final Result [facility] [address] [place] [phone] [phone] documented in this encounter Visit Diagnoses Diagnosis Uncomplicated opioid dependence (CMS/HCC) documented in this encounter Additional Health Concerns Assessment Noted Time PHQ-9 Depression Total Score: 0 03/09/20 2:42 PM EDT documented as of this encounter Care Teams Wild Oyster Harvester Relationship Specialty Start Date End Date Name, MD Terence [address] [place] [address] PCP - General Family Medicine 01/13/16 documented as of this encounter
--- OUTSIDE RECORDS SUMMARY | 2025-02-06 11:13 | XMS_ITS | Encounter Summary ---
Author Organization [employer] Address [address] [facility] 7t [place] [address] Care Team Providers Care Principal Consultant Name Role Phone Name, Terence MARIA Primary Care Provider [phone] Reason for Visit * Reason Onset Date Comments Med Refill 11/04/2023 Encounter Details Date Type Department Care Team ([facility] st Contact Info) Description 11/04/2023 Telephone [facility] MEDICINE [address] [place], [place] [phone] Name, MD Terence [address] [place] [address] Med Refill Social History Tobacco Use Types Packs/Day Years Used Date Smoking Tobacco: Former Cigarettes Smokeless Tobacco: Never Depression Answer Date Recorded Patient Health Questionnaire-9 Score 0 03/09/2023 Housing Stability Answer Date Recorded What is your housing situation today? I do not have housing (Staying with others, in a hotel, in a assisted, living outside on the street, on a [...] 8:47 AM EST T/C to pt. Through [employer] id - [id number] to schedule apt. No answer. LVM to call back [phone]. * Telephone Encounter - Adrienne Olivia LPN [...] 40 MG tablet To be sent to: [facility]/pharmacy #[id number] documented in this encounter Plan of Treatment Upcoming Encounters Date Type Department Care Team (Late st Contact Info) Description 03/16/2025 10:30 AM EDT Office Visit [facility] MEDICINE [address] [place] [address] Name, MD Terence [address] [place] [address] documented as of this encounter Visit Diagnoses Not on filedocumented in this encounter Additional Health Concerns Assessment Noted Time PHQ-9 Depression Total Score: 0 03/09/20 23 2:42 PM EDT documented as of this encounter Care Teams Principal Consultant Relationship Specialty Start Date End Date Name, MD Terence [address] [place] [address] PCP - General Family Medicine 01/13/16 documented as of this encounter
--- OUTSIDE RECORDS SUMMARY | 2025-02-06 11:13 | XMS_ITS | Encounter Summary ---
Author Organization [employer] Address [address] [facility] [address] 7[address] [place] [address] Care Team Providers Care Federal Air Marshal Name Role Phone Name, Terence MARIA Primary Care Provider [phone] Encounter Details Date Type Department Care Team ([facility] st Contact Info) Description 08/30/[address] [facility] MEDICINE [address] [place], [place] [phone] Name, MD Terence [address] [place], [place] [phone] Social History Tobacco Use Types Packs/Day Years Used Date Smoking Tobacco: Former Cigarettes Smokeless Tobacco: Never Depression Answer Date Recorded Patient Health Questionnaire-9 Score 0 03/09/2023 Housing Stability Answer Date Recorded What is your housing situation today? I do not have housing (Staying with others, in a hotel, in a long term, living outside on the street, on a [...] 03/09 PE notes to be faxed to [phone]. States she faxed a release form to medical records and has not received anything back. Any questions, please contact yumiko at [phone] documented in this encounter Plan of Treatment Upcoming Encounters Date Type Department Care Team (Late st Contact Info) Description 03/16/2025 10:30 AM EDT Office Visit [facility] MEDICINE [address] [place] [address] Name, MD Terence [address] [place] [address] documented as of this encounter Visit Diagnoses Not on filedocumented in this encounter Additional Health Concerns Assessment Noted Time PHQ-9 Depression Total Score: 0 03/09/20 2:42 PM EDT documented as of this encounter Care Teams Federal Air Marshal Relationship Specialty Start Date End Date Name, MD Terence [address] [place] [address] PCP - General Family Medicine 01/13/16 documented as of this encounter
--- OUTSIDE RECORDS SUMMARY | 2025-02-06 11:13 | XMS_ITS | Encounter Summary ---
Author Organization [employer] Address 75 [facility] 7t [place] [address] Care Team Providers Care Metal Forger'S Assistant Name Role Phone Name, Terence MARIA Primary Care Provider [phone] Reason for Visit * Reason Onset Date Comments Appointment Request 11/28/2024 Encounter Details Date Type Department Care Team ([facility] st Contact Info) Description 11/28/2024 Telephone [facility] MEDICINE 230 [place], [place] [phone] Name, MD Terence 230 [place], [place] [phone] Appointment Request Social History Tobacco Use Types [...] pt requesting schedule f/up appt with pcp. [phone] malian documented in this encounter Plan of Treatment Upcoming Encounters Date Type Department Care Team (Late st Contact Info) Description 03/16/2025 10:30 AM EDT Office Visit [facility] MEDICINE [address] [place] [address] Name, MD Terence [address] [place] [address] documented as of this encounter Visit Diagnoses Not on filedocumented in this encounter Additional Health Concerns Assessment Noted Time PHQ-9 Depression Total Score: 14 024 2:43 PM EST documented as of this encounter Care Teams Metal Forger'S Assistant Relationship Specialty Start Date End Date Name, MD Terence [address] [place] [address] PCP - General Family Medicine 01/13/16 documented as of this encounter
--- OUTSIDE RECORDS SUMMARY | 2025-02-06 11:13 | XMS_ITS | Encounter Summary ---
Author Organization [employer] Address [address] [facility] [address] 7t [place] [address] Care Team Providers Care Cigar Head Puncher Name Role Phone Name, Terence MARIA Primary Care Provider Encounter Details Date Type Department Care Team ([facility] st Contact Info) Description 04/21/2024 Orders Only [facility] [address] [place], [place] [phone] Arin Palomino CN [address] [place], [place] [phone] Social History Tobacco Use Types Packs/Day Years [...] t he electric, gas, oil or water [employer] threatened to shut off services in your [...] 03/16/2025 10:30 AM EDT Office Visit [facility] [address] [place] [address] Name, MD Terence 230 [place] [address] documented as of this encounter Procedures Procedure Name Priority Date/Time Associated Diagnosis Comments CHLAMYDIA/N. GONORRHOEAE RNA, TMA, UROGENITAL Routine 11/20/2024 12:30 PM EST documented in this encounter Results * Chlamydia/N. Gonorrhoeae RNA, TMA, Urogenitial (11/20/2024 12:30 PM EST) CT PCR NOT DETECTED Not Detect. [facility] Comment:A not detected test result [...] psychologicalconsequences. NG PCR NOT DETECTED Not Detect. [facility] Comment:A not detected test result [...] PM EST 11/20/2024 3:00 PM EST Narrative [facility] - 11/21/2024 1:28 AM EST Vaginal us Generic External Data Provider LAB MICROBIOLOGY - GENERAL ORDERABLES Final Result Performing Organization Address City/State/[facility] Co de Phone Number [facility] [address] [place] [phone] documented in this encounter Visit Diagnoses Not on filedocumented in this encounter Additional Health Concerns Assessment Noted Time PHQ-9 Depression Total Score: 14 024 2:43 PM EST documented as of this encounter Care Teams Cigar Head Puncher Relationship Specialty Start Date End Date Name, MD Terence [address] [place] [phone] PCP - General Family Medicine 01/13/16 documented as of this encounter
--- OUTSIDE RECORDS SUMMARY | 2025-02-06 11:13 | XMS_ITS | Encounter Summary ---
Author Organization [employer] [facility] Address [address] [place] [address] 7 [place] [address] Care Team Providers Care Nursery Hand Name Role Phone Name, Terence MARIA Primary Care Provider [phone] Reason for Visit * Reason Comments Med Refill Encounter Details Date Type Department Care Team ([facility] Contact Info) Description 12/21/2022 Refill [facility] [address] [place] [phone] NameTerence MD [address] [place] [phone] Anxiety Social History Tobacco Use Types Packs/Day [...] Upcoming Encounters Date Type Department Care Team ([facility] Contact Info) Description 03/16/2025 10:30 AM EDT Office Visit [facility] [address] [place] [address] Terence Law MD [address] [place] [address] [phone] documented as of this encounter Visit Diagnoses Diagnosis Anxiety Anxiety state, unspecified documented in this encounter Care Teams Nursery Hand Relationship Specialty Start Date End Date Terence Law MD [address] [place] [address] [phone] PCP - General Family Medicine 01/13/16 documented as of this encounter
--- OUTSIDE RECORDS SUMMARY | 2025-02-06 11:14 | XMS_ITS | Clinical Summary ---
Author Organization [employer] Address 75 [facility] 7t [place] [address] Care Team Providers Care Fireman Helper Name Role Phone Name, Terence MARIA Primary Care Provider [phone] Allergies No known active allergies Medications * [...] in the morning. 30 tablet 3 4 Active hydrOXYzine HCl (Atarax) 25 MG tablet [...] puffs BID 13 g 3 4 Active cloNIDine (Catapres) 0.1 [...] per day. 90 tablet 1 5 Active albuterol (Ventolin HFA) 108 (90 Base) MCG/ACT inhalerIndicati ons:Chronic obstructive pulmonary disease, unspecified COPD type (CMS/HCC) Inhale 2 puffs every 4 (four) hours if needed for wheezing. 18 g 3 5 Active Active Problems Problem Noted Date [...] Encounters Date Type Department Care Team Description 01/05/2025 Refill [facility] 230 [place] [address] Name, MD Terence Chronic obstructive pulmonary disease, unspecified COPD type (CMS/HCC) (Primary Dx) 12/29/2024 Population Health Risk Score [facility] Department [address] [place] [address] [phone] Provider, Population Health Generic 12/25/2024 Telephone [facility] [address] [place] [address] Terence Law MD Referral 12/11/2024 Orders Only [facility] External Provider, [facility] 12/08/2024 Telephone [facility] [address] [place] [address] Alphonse De Luna [place] Appointment Request 11/28/2024 Telephone [facility] [address] [place] [address] Terence Law MD Appointment Request from Last 3 Months Family History Medical [...] Description 03/16/2025 10:30 AM EDT Office Visit [facility] [address] [place] [address] Name, MD Terence 230 [place] [address] Health Maintenance Due Date Last Done Comments [...] - PCV) 1997 Mammogram 2018 Depression Monitoring 05/25/2024 11/25/2023 , 11/25/2023 COVID-19 Vaccine (1 - 2023-2 5 [...] Procedure Name Priority Date/Time Associated Diagnosis Comments US PELVIS TRANSVAGINAL Routine 12/11/2024 2:15 PM EST CHLAMYDIA/N. GONORRHOEAE RNA, TMA, UROGENITAL Routine 11/20/2024 12:30 PM EST THINPREP IMAGING PAP AND HPV MRNA E6/E7 WITH REFLEX TO HPV 16,18/45 Routine 04/17/2024 11:13 AM EDT Uncomplicated opioid dependence (CMS/HCC) from Last 3 Months or Most Recently Relevant to Health Maintenance Results * US Pelvis Transvaginal (12/11/2024 2:15 PM EST) Anatomical Region Laterality Modality Pelvis Ultrasound 12/11/2024 2:15 PM EST Narrative 12/12/2024 10:07 AM EST ? [facility] ?[address] ?[place] [address] ? Ultrasound Report ? Signed ? Patient: Mu,Maddie ?MR#: [id number] ?? [id number] ? : 1980 ?Acct:[id number] ? Age/Sex: 44 / F ?ADM Date: 12/11/24 ? Loc: HO.US ? Attending Dr: Greg Javier MD ? Ordering Physician: Greg Javier MD ?? Date of Service: 12/11/24 ?? Procedure(s): US pelvic and transvaginal ?? Accession Number(s): [id number] ? cc: Terence Law MD; Greg Javier MD ? EXAMINATION: ??US PELVIS TRANSABDOMINAL AND TRANSVAGINAL ? HISTORY: N93.9 - Abnormal uterine and vaginal bleeding, unspecified ? COMPARISON: There are no prior studies for comparison. ? TECHNIQUE: ? Transabdominal and endovaginal real-time 2D llanos-scale ultrasound was ?? performed. ? FINDINGS: ? Uterus: ??The uterus is normal in size, measuring 7.4 x 3.6 x 4.1 cm. ? Myometrium has a normal echotexture. ??There is an 8 x 7 x 9 mm fundal ?? fibroid. ? Endometrium: ??The endometrial stripe measures 11 mm in thickness. ? Right ovary: ??The right ovary measures 2.6 x 1.8 x 1.6 cm. ??The right ?? ovary is normal in size and echotexture. ? Left ovary: ?? The left ovary is not identified. ? Pelvic fluid: none. ? US/US pelvic and transvaginal ?? IMPRESSION: ? 1. The endometrial stripe measures 11 mm in thickness. ? 2. 8 x 7 x 9 mm fundal fibroid. ? 3. The left ovary is not identified. ? Electronically signed by: ??Tunde Guzman MD ??12/12/2024 10:04 AM EST ?? RP ? Dictated By: ?Tunde Guzman MD ? Signed By: ?<Electronically signed by Tunde Guzman MD in OV> ?12/12/24 1004 ? DD/ 1415 ? TD/TT: 12/11/24 1429 ? Graduate Rn: ? Procedure Note Donotuseinterpreter, Image - 12/12/2024 [place] [address] Ultrasound Report Signed Patient: Maddie DobbinsMR#: [id number] : 1980Acct:[id number] Age/Sex: 44 / FADM Date: 12/11/24 Loc: HO.US Attending Dr: Greg Javier MD Ordering Physician: Greg Javier MD Date of Service: 12/11/24 Procedure(s): US pelvic and transvaginal Accession Number(s): [id number] cc: Terence Law MD; Greg Javier MD EXAMINATION: US PELVIS TRANSABDOMINAL AND TRANSVAGINAL HISTORY: N93.9 - Abnormal uterine and vaginal bleeding, unspecified COMPARISON: There are no prior studies for comparison. TECHNIQUE: Transabdominal and endovaginal real-time 2D llanos-scale ultrasound was performed. FINDINGS: Uterus: The uterus is normal in size, measuring 7.4 x 3.6 x 4.1 cm. Myometrium has a normal echotexture. There is an 8 x 7 x 9 mm fundal fibroid. Endometrium: The endometrial stripe measures 11 mm in thickness. Right ovary: The right ovary measures 2.6 x 1.8 x 1.6 cm. The right ovary is normal in size and echotexture. Left ovary: The left ovary is not identified. Pelvic fluid: none. US/US pelvic and transvaginal IMPRESSION: 1. The endometrial stripe measures 11 mm in thickness. 2. 8 x 7 x 9 mm fundal fibroid. 3. The left ovary is not identified. Electronically signed by: Tunde Guzman MD 12/12/2024 10:04 AM EST RP Dictated By: Tunde Guzman MD Signed By: <Electronically signed by Tunde Guzman MD in OV> 12/12/24 1004 DD/ 1415 TD/TT: 12/11/24 1429 Graduate Rn: [facility] External Provider IMG US PROCEDURES Final Result * Chlamydia/N. Gonorrhoeae RNA, TMA, Urogenitial (11/20/2024 12:30 PM EST) CT PCR NOT DETECTED Not Detect. [facility] Comment:A not detected test result [...] psychologicalconsequences. NG PCR NOT DETECTED Not Detect. [facility] Comment:A not detected test result [...] PM EST 11/20/2024 3:00 PM EST Narrative [facility] - 11/21/2024 1:28 AM EST Vaginal us Generic External Data Provider LAB MICROBIOLOGY - GENERAL ORDERABLES Final Result [facility] [address] [place] [phone] [phone] * ThinPrep Imaging Pap and HPV mRNA E6/E7 with Reflex to HPV 16,18/45 (04/17/2024 11:13 AM EDT) HPV 16 RNA [facility] HPV 18/45 RNA [facility] HPV nRNA E6/E7 Not Detected Not Detected [facility] Comment:Methodology: Transcr iption-Mediated AmplificationThis assay detects E6/E7 viral messenger RNA (mRNA) from 14high-risk HPV types (16,18,31,33,35,39,45,51,52,56,58,59,66,68).Cervical sources are required for HPV testing.If a vaginal source from a patient who has had atotal hysterectomy with removal of cervix wassubmitted, please contact the testing laboratoryfor alternative testing options.For additional information, please refer tohttp://education.[employer]/faq/ZQY900x1(This link if provided for information/educational purposes only.)THIS TEST WAS PERFORMED AT:[email or web address] [place] [phone] DENT MD SOURCE: SEE NOTE [facility] Comment:Cervix Report Status: [facility] Clinical Information: SEE NOTE [facility] Comment:ROUTINE LMP: SEE NOTE [facility] Comment:NONE GIVEN Prev. PAP: SEE NOTE [facility] Comment:NONE GIVEN Prev. BX: SEE NOTE [facility] Comment:NONE GIVEN Statement Of Adequacy: SEE NOTE [facility] Comment:Satisfactory for flores luation.Endocervical/transformation zone componentpresent. General Categorization: [facility] Interpretation/Result: SEE NOTE [facility] Comment:Cytology Results: Ne gative for intraepitheliallesion or malignancy. Cytology Comment SEE NOTE [facility] Comment:This Pap test has be en evaluated with computerassisted technology. Maori Physiotherapist: SEE NOTE [facility] Comment:YP, CT(ASCP)CT yeny [place] location: [place] [address] Review Maori Physiotherapist: TNP [facility] Pathologist [facility] PAP Infection SEE NOTE [facility] Comment:Shift in vaginal leonard ra suggestive of bacterialvaginosis. See Note SEE NOTE [facility] Comment:EXPLANATORY NOTE:The Pap is a [...] AM EDT 04/17/2024 4:19 PM EDT Narrative [facility] - 04/25/2024 1:06 PM EDT SEE SCANNED RESULTS IN EMRRCEREVIX us Arin Palomino [facility] LAB PATHOLOGY ORDERABLES Final Result [facility] [address] [place] [address] [phone] from Last 3 Months or Most Recently Relevant to Health Maintenance Insurance [facility] C[facility] * Guarantor: Maddie Dobbins Account Type Relation to Patient Date of Phone Billing Address Personal/Family Self [address] [place] Care Teams Fireman Helper Relationship Specialty Start Date End Date Name, MD Terence [address] [place] [address] [place] [address] PCP - General Family Medicine 01/13/16
== END 2025-02-06 11:24 | disposition home or self-care (01) ==
LOC: HO.HWS 09:57
PROVIDERS: PCP Internal Medicine Geriatric Medicine; Visit Provider Obstetrics & Gynecology
DX: N93.9 Abnormal uterine and vaginal bleeding, unspecified (principal); N90.89 Other specified noninflammatory disorders of vulva and perineum; Z32.02 Encounter for pregnancy test, result negative
CPT/HCPCS: 56605; 58100

== ENCOUNTER 2025-03-13 11:15 | Outpatient (AMB) | payer MEDICAID, SELFPAY ==
--- NOTE | 2025-03-13 11:17 | A.OFFVIS_ITS ---
Intake Visit Reasons: BX Results [employer] Required: Yes [employer] Language: Water Truck Driver Services: [employer] Present (in person) [employer] Name: ARLETTE Veliz Information Interpreted: non-clinical & clinical Appliance Parts Counter Clerk: Appliance Parts Counter Clerk Present (Meche Marte ARLETTE) Accompanied by: Self / Same As Patient Allergies No Known Allergies [NKA] Allergy (Verified 11/20/24 12:45) HPI Comments Details: Presenting post EMB and vulvar biopsy. The pathology showed the following: A. Endometrium, biopsy: Disordered proliferative endometrium with focal breakdown; no atypia or hyperplasia identified. B. Vulva, left posterior labia majora, excision: Seborrheic keratosis; no atypia or fungi identified 12/12 pelvic ultrasound was done and showed the following: Uterus: The uterus is normal in size, measuring 7.4 x 3.6 x 4.1 cm. Myometrium has a normal echotexture. There is an 8 x 7 x 9 mm fundal fibroid. Endometrium: The endometrial stripe measures 11 mm in thickness. Right ovary: The right ovary measures 2.6 x 1.8 x 1.6 cm. The right ovary is normal in size and echotexture. Left ovary: The left ovary is not identified. Pelvic fluid: none. Mammogram not done yet, all blood work has not been done yet [facility] Medical History Arthritis Lupus (systemic lupus erythematosus) Raynaud disease Family History Sister Breast cancer Female Reproductive History Menstrual Age of Menarche: 13 Review of Systems Const All systems reviewed & are unremarkable except as noted in HPI and below Reports as per HPI and Reports no additional complaints GI Reports no additional complaints Reports no additional complaints Assessment & Plan Assessment & Plan (1) Abnormal uterine bleeding (AUB): Code(s): N93.9 - Abnormal uterine and vaginal bleeding, unspecified Category: Medical Plan: Discussed with the patient the results the EMB pathology, recommended the p atient to have her blood work done with the mammogram and schedule a follow-up appointment to discuss options of treatment. All questions answered, the patient verbalized understanding (2) Labial lesion: Comment: Left posterior labia majora Code(s): N90.89 - Other specified noninflammatory disorders of vulva and perineum Category: Medical Plan: Discussed with the patient the results the pathology. The patient was reassured. All questions answered, the patient verbalized understanding. Coding Level of Care Code Est Pt Level 3 (14590) Diagnoses Abnormal uterine bleeding (AUB) N93.9 Labial lesion N90.89
--- OUTSIDE RECORDS SUMMARY | 2025-03-13 12:03 | XMS_ITS | Encounter Summary ---
Author Organization [employer] Address [address] [facility] 7t [place] [address] Care Team Providers Care Transmission And Protection Engineer Name Role Phone Name, Terence MARIA Primary Care Provider [phone] Reason for Visit * Reason Onset Date Comments VNA Orders 02/26/2023 Vitamin Deficiency 02/26/2023 Pt no show to hospital follow up appointment. Encounter Details Date Type Department Care Team ([facility] st Contact Info) Description 02/26/2023 Telephone [facility] [address] [place], [place] [phone] Name, MD Terence [address] [place] [address] VNA Orders; Vitamin Deficiency (Pt no show [...] 8:16 AM EDT [facility] [place] at [facility]NA calling in regards to nursing home wound care orders. Ghada would like to know if PCP will sign orders due today. Patient was last seen with Dr. Law 07/08/20. Patient does have an upcoming PE appt on 03/09/23. documented in this encounter Plan of Treatment Upcoming Encounters Date Type Department Care Team (Late st Contact Info) Description 03/16/2025 10:30 AM EDT Office Visit [facility] [address] [place] [address] Name, MD Terence [address] [place] [address] documented as of this encounter Visit Diagnoses Not on filedocumented in this encounter Care Teams Transmission And Protection Engineer Relationship Specialty Start Date End Date NameTerence MD [address] [place] [address] PCP - General Family Medicine 01/13/16 documented as of this encounter
== END 2025-03-13 11:47 | disposition home or self-care (01) ==
LOC: HO.HWS 11:15
PROVIDERS: PCP Internal Medicine Geriatric Medicine; Visit Provider Obstetrics & Gynecology
DX: N93.9 Abnormal uterine and vaginal bleeding, unspecified (principal); N90.89 Other specified noninflammatory disorders of vulva and perineum
CPT/HCPCS: 99213

== ENCOUNTER → 2025-03-13 11:15 | Outpatient (BNVA) | payer MEDICAID, SELFPAY | PROVIDERS: PCP Internal Medicine Geriatric Medicine; Visit Provider Obstetrics & Gynecology | DX: N93.9 Abnormal uterine and vaginal bleeding, unspecified (principal); N90.89 Other specified noninflammatory disorders of vulva and perineum | CPT/HCPCS: 99212 ==

== ENCOUNTER 2025-03-16 11:25 | Outpatient (REF) | payer MEDICAID, SELFPAY ==
--- NOTE | ~2025-03-16 | XR_ITS ---
EXAMINATION: XR LUMBOSACRAL SPINE CLINICAL INFORMATION: Chronic low back pain COMPARISON: None available. TECHNIQUE: 5 views of the lumbar spine, inclusive of bilateral oblique views, were obtained. FINDINGS: No scoliosis. Normal lordosis. No subluxations. No fracture, compression deformity, or suspicious bone lesion. No malalignment. Minimal/early disc degeneration throughout the lumbar region. Normal facet alignment. No pars defects. No significant facet degeneration. The sacrum appears intact. SI joints appear normal. There is early vascular calcification in the soft tissues. XR/XR lumbar spine 4V min IMPRESSION: 1. No acute finding of the lumbar spine. 2. Early multilevel degenerative spondylosis. Electronically signed by: Gualberto Chino MD 03/16/2025 11:40 AM EDT
--- OUTSIDE RECORDS SUMMARY | 2025-03-16 12:20 | XMS_ITS | Encounter Summary ---
Author Organization [employer] Address [address] [facility] 7t [place] [address] Care Team Providers Care Structural Test Engineer Name Role Phone Name, Terence MARIA Primary Care Provider [phone] Reason for Visit * Reason Onset Date Comments VNA Orders 02/26/2023 Vitamin Deficiency 02/26/2023 Pt no show to hospital follow up appointment. Encounter Details Date Type Department Care Team ([facility] st Contact Info) Description 02/26/2023 Telephone [facility] [address] [place], [place] [phone] Name, MD Terence [address] [place] [address] VNA Orders; Vitamin Deficiency (Pt no show [...] 8:16 AM EDT Tc princess [place] at [facility] VNA calling in regards to intermediate wound care orders. Ghada would like to know if PCP will sign orders due today. Patient was last seen with Dr. Law 07/08/20. Patient does have an upcoming PE appt on 03/09/23. documented in this encounter Plan of Treatment Not on file documented as of this encounter Visit Diagnoses Not on filedocumented in this encounter Care Teams Structural Test Engineer Relationship Specialty Start Date End Date Name, MD Terence [address] [place] [address] PCP - General Family Medicine 01/13/16 documented as of this encounter
== END 2025-03-16 11:26 | disposition home or self-care (01) ==
LOC: HO.HHCX 11:25
PROVIDERS: PCP Internal Medicine Geriatric Medicine; Referring Provider Internal Medicine Geriatric Medicine; Visit Provider Internal Medicine Geriatric Medicine
DX: M54.40 Lumbago with sciatica, unspecified side (principal); G89.29 Other chronic pain; F11.20 Opioid dependence, uncomplicated
CPT/HCPCS: 72110

== ENCOUNTER → 2025-03-16 11:26 | Outpatient (BNV) | payer MEDICAID, SELFPAY | PROVIDERS: PCP Internal Medicine Geriatric Medicine; Referring Provider Internal Medicine Geriatric Medicine; Visit Provider Radiology Diagnostic Radiology | DX: M54.50 Low back pain, unspecified (principal) | CPT/HCPCS: 72110 ==

== ENCOUNTER 2025-03-16 11:38 | Outpatient (REF) | payer MEDICAID, SELFPAY | END 2025-03-16 11:39 | disposition home or self-care (01) | LOC: HO.HHCL 11:38 | PROVIDERS: Visit Provider Internal Medicine Geriatric Medicine | DX: Z13.89 Encounter for screening for other disorder (principal) ==

== ENCOUNTER 2025-05-10 11:17 | Outpatient (REF) | payer MEDICAID, SELFPAY ==
[2025-05-10 11:44] LABS: MANUAL DIFF FLAG NO
[2025-05-10 12:13] LABS: Hematocrit 39.9 % (37.0-47.0); Hemoglobin 12.6 g/dl (12.0-16.0); Imm Gran Abs Auto 0.03 X10*3/uL (0.00-0.03); Imm Gran Pct Auto 0.4 % (0.0-0.4); Lymphocytes Absolute Auto 1.3 X10*3/uL (1.2-4.9); Mean Corpuscular HGB Conc 31.6 g/dl (31.0-35.0); Mean Corpuscular Hemoglobin 27.6 pg (27.0-33.0); Mean Corpuscular Volume 87.3 fL (80.0-98.0); NRBC Abs Auto 0.000 X10*3/uL (0.0-0.012); NRBC Pct Auto 0.0 /100WBC (0.0-0.2); Platelet Count 207 X10*3/uL (160-400); Red Blood Count 4.57 X10*6/uL (4.20-5.50); White Blood Count 7.2 X10*3/uL (4.8-10.8)
--- OUTSIDE RECORDS SUMMARY | 2025-05-10 12:14 | XMS_ITS | Encounter Summary ---
Author Organization [employer] Address [address] [facility] 7t [place] [address] Care Team Providers Care Senior Assistant Manager Name Role Phone Name, Terence MARIA Primary Care Provider [phone] Reason for Visit * Reason Onset Date Comments VNA Orders 02/26/2023 Vitamin Deficiency 02/26/2023 Pt no show to hospital follow up appointment. Encounter Details Date Type Department Care Team ([facility] st Contact Info) Description 02/26/2023 Telephone [facility]ICINE [address] [place], [place] [phone] Name, MD Terence [address] [place] [address] VNA Orders; Vitamin Deficiency (Pt no show [...] 8:16 AM EDT Tc princess [place]rr[place] at [facility] VNA calling in regards to half-way wound care orders. Ghada would like to know if PCP will sign orders due today. Patient was last seen with Dr. Law 07/08/20. Patient does have an upcoming PE appt on 03/09/23. documented in this encounter Plan of Treatment Upcoming Encounters Date Type Department Care Team (Late st Contact Info) Description 05/30/2025 11:00 AM EDT Office Visit [facility] [address] [place] [address] Name, MD Terence [address] [place] [address] documented as of this encounter Visit Diagnoses Not on filedocumented in this encounter Care Teams Senior Assistant Manager Relationship Specialty Start Date End Date NameTerence MD [address] [place] [address] PCP - General Family Medicine 01/13/16 documented as of this encounter
[2025-05-10 12:23] LABS: Cannabinoid Screen Urine Not Detected (Not Detect)
[2025-05-10 12:35] LABS: Alanine Aminotransferase 15 U/L (0-31); Albumin Level 3.6 g/dL (3.5-5.0); Alkaline Phosphatase 97 U/L (39-117); Anion Gap 11 (12-20); Aspartate Amino Transferase 29 U/L (5-31); Blood Urea Nitrogen 6 mg/dL (9-16); Calcium 9.1 mg/dL (8.4-10.2); Carbon Dioxide 25 mmol/L (22-29); Chloride 106 mmol/L (96-108); Estimated Glomerular Filt Rate > 60; Potassium 3.7 mmol/L (3.3-5.1); Sodium 138 mmol/L (135-145); Total Protein 8.6 g/dL (6.5-8.0)
[2025-05-10 13:09] LABS: HBS Num1 2.04 mIU/mL (0-7.99); HBsAGNum1 0.32 S/CO (0.00-0.99); HIV Num 1 0.06 S/CO (0.00-0.99); Hepatitis B Surface Antigen Negative (Negative); ~HepC Num1 12.36 S/CO (0.00-0.79); ~Hepatitis B Surface Antibody NONREACTIVE (Nonreactive); ~Hepatitis C Antibody Reactive (Nonreactive)
[2025-05-12 13:38] LABS: HCV Log PCR <1.18 NOT DETECTED Log IU/mL (NOT DETECTED); HepC Viral Load <15 NOT DETECTED IU/mL (NOT DETECTED)
== END 2025-05-10 11:18 | disposition home or self-care (01) ==
LOC: HO.LAB 11:17
PROVIDERS: PCP Internal Medicine Geriatric Medicine; Visit Provider Internal Medicine Geriatric Medicine
DX: F11.20 Opioid dependence, uncomplicated (principal); M54.40 Lumbago with sciatica, unspecified side; G89.29 Other chronic pain
CPT/HCPCS: 36415; 80053; 80307; 85025; 86592; 86706; 86803; 87340; 87389; 87522

== ENCOUNTER 2025-05-28 10:25 | Outpatient (REF) | payer MEDICAID, SELFPAY ==
--- NOTE | ~2025-05-28 | MR_ITS ---
EXAMINATION: MR LUMBAR SPINE WITHOUT CONTRAST CLINICAL INFORMATION: Persistent low back pain. COMPARISON: None available. TECHNIQUE: MRI of the lumbar spine was obtained using routine sequences without contrast. FINDINGS: Last rib-bearing vertebra labeled T12. No bone marrow STIR signal abnormality. Bone marrow inhomogeneity. Grade 1 retrolisthesis L5-S1. Minimal marginal osteophyte formation L2-3, L3-4 and L4-5 levels. Conus medullaris and at inferior endplate of L1 with normal signal. T12-L1: No disc herniation. No neuroforamina stenosis. L1-2: No disc herniation. No neuroforamina stenosis. L2-3: Mild broad-based disc bulging. Facet joint hypertrophy. No compression upon neural elements. L3-4: Broad-based disc bulging. Facet joint hypertrophy. No compression upon neural elements. L4-5: Broad-based disc bulging. Facet joint and ligamentum flavum hypertrophy. Reduced AP diameter of the thecal sac and neuroforamina. No compression upon neural elements. L5-S1: Broad-based disc bulging. Grade 1 retrolisthesis. Facet joint hypertrophy. Reduced AP diameter of the thecal sac and neuroforamina likely pronounced on the left side. No prevertebral compartment hematoma, mass or fluid collection. MR/MR lumbar spine wo con IMPRESSION: Mild to moderate multilevel lumbar spondylosis pronounced at L5-S1 resulting in grade 1 retrolisthesis and left neuroforamina and narrowing. Concerning calcium metabolic disorder/osteopenia. Electronically signed by: Zac Clinton MD 05/28/2025 11:50 AM EDT
--- OUTSIDE RECORDS SUMMARY | 2025-05-28 11:05 | XMS_ITS | Encounter Summary ---
Author Organization [employer] Address [address] [facility] 7t [place] [address] Care Team Providers Care Ships Equipment Engineer Name Role Phone Name, Terence MARIA Primary Care Provider [phone] Reason for Visit * Reason Onset Date Comments VNA Orders 02/26/2023 Vitamin Deficiency 02/26/2023 Pt no show to hospital follow up appointment. Encounter Details Date Type Department Care Team ([facility] st Contact Info) Description 02/26/2023 Telephone [facility] [address] [place], [place] [phone] Name, MD Terence [address] [place] [address] VNA Orders; Vitamin Deficiency (Pt no show [...] 8:16 AM EDT Tc princess [place] at [facility] VNA calling in regards to jail wound care orders. Ghada would like to know if PCP will sign orders due today. Patient was last seen with Dr. Law 07/08/20. Patient does have an upcoming PE appt on 03/09/23. documented in this encounter Plan of Treatment Upcoming Encounters Date Type Department Care Team (Late st Contact Info) Description 05/30/2025 11:00 AM EDT Office Visit [facility]INE [address] [place] [address] Name, MD Terence [address] [place] [address] documented as of this encounter Visit Diagnoses Not on filedocumented in this encounter Care Teams Ships Equipment Engineer Relationship Specialty Start Date End Date NameTerence MD [address] [place] [address] PCP - General Family Medicine 01/13/16 documented as of this encounter
== END 2025-05-28 10:26 | disposition home or self-care (01) ==
LOC: HO.MRI 10:25
PROVIDERS: PCP Internal Medicine Geriatric Medicine; Visit Provider Internal Medicine
DX: M54.50 Low back pain, unspecified (principal); G89.29 Other chronic pain
CPT/HCPCS: 72148

== ENCOUNTER → 2025-05-28 10:34 | Outpatient (BNV) | payer MEDICAID, SELFPAY | PROVIDERS: PCP Internal Medicine Geriatric Medicine; Visit Provider Radiology Diagnostic Radiology | DX: M54.50 Low back pain, unspecified (principal) | CPT/HCPCS: 72148 ==

== ENCOUNTER 2025-07-30 12:29 | Outpatient (REF) | payer MEDICAID, SELFPAY ==
--- NOTE | ~2025-07-30 | XR_ITS ---
EXAMINATION: Chest and right knee. CLINICAL INDICATION: Chronic right knee pain. Crackles on chest exam. COMPARISON: Chest 05/01/2024 TECHNIQUE: Right knee 3 views. Chest 2 views. FINDINGS: Right knee: There is mild loss of medial and patellofemoral compartment joint space with medial compartment periarticular spurring. No loose bodies or joint effusion seen. No bony erosive changes. No fracture or dislocation. Soft tissue calcification seen along the distal quadriceps tendon likely old injury. CHEST: The lungs are somewhat expanded with increased interstitial markings throughout both lungs but no focal consolidation seen. There is platelike atelectasis or scarring in both upper lobes. There is no pleural effusion. The heart size and pulmonary vascularity is normal. No gross bony abnormality. XR/XR chest 2V IMPRESSION: Degenerative osteoarthritic changes medial and patellofemoral compartment. No joint effusion or loose bodies. No acute fracture. Chronic interstitial lung changes similar to previous study from 05/01/2024. Recommend CT chest without contrast to exclude any chronic disease such as sarcoidosis, chronic inhalation or inflammatory process. Bilateral upper lobe atelectasis is stable. Electronically signed by: Jean-Claude Gomez MD 07/31/2025 07:07 AM EDT
--- NOTE | ~2025-07-30 | XR_ITS ---
EXAMINATION: Chest and right knee. CLINICAL INDICATION: Chronic right knee pain. Crackles on chest exam. COMPARISON: Chest 05/01/2024 TECHNIQUE: Right knee 3 views. Chest 2 views. FINDINGS: Right knee: There is mild loss of medial and patellofemoral compartment joint space with medial compartment periarticular spurring. No loose bodies or joint effusion seen. No bony erosive changes. No fracture or dislocation. Soft tissue calcification seen along the distal quadriceps tendon likely old injury. CHEST: The lungs are somewhat expanded with increased interstitial markings throughout both lungs but no focal consolidation seen. There is platelike atelectasis or scarring in both upper lobes. There is no pleural effusion. The heart size and pulmonary vascularity is normal. No gross bony abnormality. XR/XR knee RT 3V IMPRESSION: Degenerative osteoarthritic changes medial and patellofemoral compartment. No joint effusion or loose bodies. No acute fracture. Chronic interstitial lung changes similar to previous study from 05/01/2024. Recommend CT chest without contrast to exclude any chronic disease such as sarcoidosis, chronic inhalation or inflammatory process. Bilateral upper lobe atelectasis is stable. Electronically signed by: Jean-Claude Gomez MD 07/31/2025 07:07 AM EDT
--- OUTSIDE RECORDS SUMMARY | 2025-07-30 11:15 | XMS_ITS | Encounter Summary ---
Author Organization [employer] Address [address] [place] [address] 7 [place] [address] Care Team Providers Care Traveling Passenger Agent Name Role Phone Terence Law MD Primary Care Provider [phone] Reason for Referral * Consultation (Routine) - Pending Review Specialty Diagnoses / Procedures Referred By Irene alfaro Referred To Contact Podiatry Diagnoses Foot callus Terence Law MD [address] [place] [address] Phone: tel: fax: Referral ID Status Reason Start Date Expiration Date Visits Requested Visits Authorized [id number] Pending Review Specialty Services Required 07/30/2026 1 1 Reason for Visit * Reason Comments Follow-up Encounter Details Date Type Department Care Team (Latest Contact Info) Description 07/30/2025 11:15 AM EDT Office Visit [facility] [address] [place] [address] [phone] Terence Law MD [address] [place] [address] [phone] Moderate major depression (CMS/HCC) (HCC) (Primary Dx); JUDE (generalized anxiety disorder); Opioid dependence, uncomplicated (CMS/HCC) (HCC); Vaccine refused by patient; Arthralgia, unspecified joint; CAUSEY (dyspnea on exertion); Foot callus Social History Tobacco Use Types Packs/Day Years Used Date Smoking Tobacco: Every Day Cigarettes Passive Smoke Exposure: Current Smokeless Tobacco: Current Tobacco Cessation:Ready to Q uit: Not Asked; Counseling Given: Not Answered Alcohol Use Standard Drinks/Week Comments Defer 0 (1 standard drink = 0.6 oz pur e alcohol) Depression Answer Date Recorded Patient Health Questionnaire-9 Score 14 11/25/2023 Patient Health Questionnaire-9 Score 14 11/25/2023 Last PHQ-9: Questionnaire Data Not on file 0 11/25/2023 Housing Stability Answer Date Recorded What is your housing situation today? I have jo ann acevedo 03/16/[address] you li ve. Do you have problems with any of the following? None of the above 03/16/2025 Food Insecurity Answer Date Recorded Within the past 12 months, y ou worried that your food would run out before you got money to buy more: Never True 03/16/2025 Within the past 12 months,th e food you bought just didn't last and you didn't have enough money to get more: Never True Transportation Answer Date Recorded In the past 12 months, has l ack of transportation kept you from medical appts, meetings, work or from getting things needed for daily living? No 03/16/2025 Utilities Answer Date Recorded In the past 12 months, has t he electric, gas, oil or water company threatened to shut off services in your home? No 03/16/2025 Depression Answer Date Recorded Patient Health Questionnaire-2 Score 6 11/25/2023 Internet Access Answer Date Recorded Internet Access Q1 Yes 03/16/2025 Internet Access Q2 Not on file 03/16/2025 Comments No Sex and Gender Information Value Date Recorded Sex Assigned at Female 08/17/2022 10:14 AM EDT Legal Sex Female 10:14 AM EDT Gender Identity Female 08/17/2022 10:14 AM EDT Sexual Orientation Straight 08/17/2022 10 :14 AM EDT documented as of this encounter Last Filed Vital Signs Vital Sign Reading Time Taken Comments Blood Pressure 110/82 07/30/2025 11:36 AM EDT Pulse 72 07/30/2025 11:36 AM EDT Temperature 37.1 C (98.7 F) 07/30/2025 11:36 AM EDT Respiratory Rate 16 07/30/2025 11:36 AM EDT Oxygen Saturation - - Inhaled Oxygen Concentration - - Weight 84 kg (185 lb 4 oz) 07/30/2025 11:36 AM E DT Height 157.5 cm (5' 2 ) 07/30/2025 11:36 AM EDT Body Mass Index 33.88 07/30/2025 11:36 AM EDT documented in this encounter Functional Status * Over the last 2 weeks, how often have you been bothered by any of the following problems? Question Answer Date of Assessment Author Feeling nervous, anxious, or on edge 3 07/30/2025 11:40 AM EDT Cordelia Feliciano MA Not being able to stop or control worrying 3 07/30/2025 11:40 AM EDT Cordelia Feliciano MA Worrying too much about different things 3 07/30/2025 11:40 AM EDT Cordelia Feliciano MA Trouble relaxing 3 07/30/2025 11:40 AM EDT Cordelia Feliciano MA Being so restless that it is hard to sit still 3 07/30/2025 11:40 AM EDT Cordelia Feliciano MA Becoming easily annoyed or irritable 3 07/30/2025 11:40 AM EDT Cordelia Feliciano MA Feeling afraid as if something awful might happen 3 07/30/2025 11:40 AM EDT Cordelia Santiago MA JUDE-7 Total Score 21 07/30/2025 11:40 AM EDT Cordelia Feliciano MA documented as of this encounter Progress Notes * Terence Law MD - 07/30/2025 11:15 AM EDT Subjective Patient ID: Maddie Dobbins is a 44 y.o. female who presents for Follow-up. Patient comes for follow-up visit. She complains of months of depression, anxiety, panic attacks. She has difficulties concentrating, difficulty sleeping, she has anhedonia, she has episodes of intense anxiety. She is not suicidal. She continues using illicit opiates. Most recently she has been buying opiate tablets on the street. She denies the use of IV drugs. She has Narcan at home. She is interested in referral to behavioral health to restart counseling. She had the same complaint she had on her previous visit of joint pains, low back pain, knee pain, occasional hand swelling, occasional shortness of breath. She does not have any cough, wheezing. She has not gone for the testing ordered at her previous visit. She refused any vaccination today. Review of Systems Constitutional: Negative for chills and fever. HENT: Negative for sore throat. Respiratory: Positive for shortness of breath. Negative for cough and wheezing. Cardiovascular: Negative for chest pain, palpitations and leg swelling. Gastrointestinal: Negative for abdominal pain. Musculoskeletal: Positive for arthralgias, back pain and joint swelling. Psychiatric/Behavioral: Positive for sleep disturbance. Negative for self-injury and suicidal ideas. The patient is nervous/anxious. See HPI Objective Vitals: 07/30/25 1136 BP: 110/82 BP Location: Left arm Patient Position: Sitting BP Cuff Size: Adult Pulse: 72 Resp: 16 Temp: 98.7 ??F (37.1 ??C) TempSrc: Oral Weight: 185 lb 4 oz (84 kg) Height: 5' 2 (1.575 m) Physical Exam Constitutional: Appearance: Normal appearance. Cardiovascular: Rate and Rhythm: Normal rate and regular rhythm. Heart sounds: No murmur heard. No gallop. Pulmonary: Effort: Pulmonary effort is normal. No respiratory distress. Breath sounds: No wheezing. Comments: Bilateral basal crackles Musculoskeletal: Right lower leg: No edema. Left lower leg: No edema. Comments: Antalgic gait, bilateral knee pain with active and passive range of motion, low back painwith active and passive range of motion. Mild finger swelling. No finger ulceration. Feet: Left foot: Skin integrity: Callus present. Neurological: Mental Status: She is alert. Assessment/Plan Diagnoses and all orders for this visit: Moderate major depression (CMS/HCC) ([facility]) Comments: I will have the patient with with behavioral health today. She denies suicidal ideation. She has Narcan at home. She is reminded to never use opiates alone. JUDE (generalized anxiety disorder) Opioid dependence, uncomplicated (CMS/HCC) ([facility]) Comments: See above Vaccine refused by patient Arthralgia, unspecified joint Comments: I will have the patient go for the blood work ordered at her previous visit to evaluate for possible scleroderma. She is reminded to go for the x-ray ordered at her previous visit. CAUSEY (dyspnea on exertion) Foot callus Comments: Patient has a painful foot callus at the base of the lateral aspect of the left foot at the base ofthe left fifth toe. She is interested in referral to podiatry and she was referred as requested. Orders: - Referral to Podiatry; Future Other orders - cloNIDine (Catapres) 0.1 MG tablet; Take 1 tablet (0.1 mg) by mouth 2 times daily. Future Appointments Date Time Provider Department Center 10/02/2025 11:00 AM Unique Dennison OD [facility] documented in this encounter Plan of Treatment Upcoming Encounters Date Type Department Care Team (Late st Contact Info) Description 10/02/2025 11:00 AM EST Office Visit [facility] [address] [place], [place] [phone] Unique Dennison OD [address] [place] [address] Scheduled Referrals Name Type Priority Associated Diagnoses Orde r Schedule Referral to Podiatry Outpatient Referral Routine Foot callus Expected: 07/30/2025 (Approximate), Expires: 07/30/2026 documented as of this encounter Visit Diagnoses Diagnosis Moderate major depression (CMS/HCC) (HCC)- Primary Major depressive disorder, single episode, moderate JUDE (generalized anxiety disorder) Generalized anxiety disorder Opioid dependence, uncomplicated (CMS/HCC) (HCC) Vaccine refused by patient Arthralgia, unspecified joint CAUSEY (dyspnea on exertion) Other dyspnea and respiratory abnormality Foot callus Corns and callosities documented in this encounter Additional Health Concerns Assessment Noted Time PHQ-9 Depression Total Score: 14 024 2:43 PM EST documented as of this encounter Care Teams Traveling Passenger Agent Relationship Specialty Start Date End Date Name, MD Terence [address] [place], [place] [phone] PCP - General Family Medicine 01/13/16 documented as of this encounter
--- OUTSIDE RECORDS SUMMARY | 2025-07-30 12:33 | XMS_ITS | Encounter Summary ---
Author Organization [employer] Address [address] [facility] [facility] [address] [place] [address] Care Team Providers Care Liquid Hydrogen Plant Operator Name Role Phone Name, Terence MARIA Primary Care Provider [phone] Encounter Details Date Type Department Care Team ([facility] st Contact Info) Description 04/21/2024 Orders Only [facility] [address] [place], [place] [phone] Arin Palomino CN [address] [place] [address] Social History Tobacco Use Types Packs/Day Years [...] the past 12 months, has t he [employer] gas, oil or water company threatened to [...] Description 10/02/2025 11:00 AM EST Office Visit [facility] [address] [place], [place] [phone] Unique Dennison, OD [address] [place] [address] documented as of this encounter Procedures Procedure Name Priority Date/Time Associated Diagnosis Comments CHLAMYDIA/N. GONORRHOEAE RNA, TMA, UROGENITAL Routine 11/20/2024 12:30 PM EST documented in this encounter Results * Chlamydia/N. Gonorrhoeae RNA, TMA, Urogenitial (11/20/2024 12:30 PM EST) CT PCR NOT DETECTED Not Detect. [facility] Comment:A not detected test result [...] psychologicalconsequences. NG PCR NOT DETECTED Not Detect. [facility] Comment:A not detected test result [...] PM EST 11/20/2024 3:00 PM EST Narrative [facility] - 11/21/2024 1:28 AM EST Vaginal us Generic External Data Provider LAB MICROBIOLOGY - GENERAL ORDERABLES Final Result Performing Organization Address City/State/[facility] Co de Phone Number [facility] [address] [place] [phone] documented in this encounter Visit Diagnoses Not on filedocumented in this encounter Additional Health Concerns Assessment Noted Time PHQ-9 Depression Total Score: 14 024 2:43 PM EST documented as of this encounter Care Teams Liquid Hydrogen Plant Operator Relationship Specialty Start Date End Date Name, MD Terence [address] [place] [address] PCP - General Family Medicine 01/13/16 documented as of this encounter
--- OUTSIDE RECORDS SUMMARY | 2025-07-30 12:33 | XMS_ITS | Encounter Summary ---
Author Organization [employer] Address [address] [facility] 7t [place] [address] Care Team Providers Care Photographer Motion Picture Name Role Phone Name, Terence MARIA Primary Care Provider [phone] Reason for Visit * Reason Onset Date Comments Med Refill 11/04/2023 Encounter Details Date Type Department Care Team ([facility] st Contact Info) Description 11/04/2023 Telephone [facility] [address] [place], [place] [phone] Name, MD Terence [address] [place], [place] [phone] Med Refill Social History Tobacco Use Types [...] 8:47 AM EST T/C to pt. Through [employer] id - [id number] to schedule apt. No answer. LVM to call back [phone]. * Telephone Encounter - Adrienne Olivia LPN [...] 40 MG tablet To be sent to: [facility]/pharmacy #[id number] documented in this encounter Plan of Treatment Upcoming Encounters Date Type Department Care Team ([facility] st Contact Info) Description 10/02/2025 11:00 AM EST Office Visit [facility] [address] [place] [address] Unique Dennison, OD [address] [place] [address] documented as of this encounter Visit Diagnoses Not on filedocumented in this encounter Additional Health Concerns Assessment Noted Time PHQ-9 Depression Total Score: 0 03/09/20 23 2:42 PM EDT documented as of this encounter Care Teams Photographer Motion Picture Relationship Specialty Start Date End Date Name, MD Terence [address] [place] [address] PCP - General Family Medicine 01/13/16 documented as of this encounter
--- OUTSIDE RECORDS SUMMARY | 2025-07-30 12:33 | XMS_ITS | Encounter Summary ---
Author Organization [employer] Address [address] [facility] 7t [place] [address] Care Team Providers Care Per Assessment Nurse Name Role Phone Name, Terence MARIA Primary Care Provider [phone] Reason for Visit * Reason Onset Date Comments Durable Medical Equipment 06/27/2025 Encounter Details Date Type Department Care Team ([facility] st Contact Info) Description 06/27/2025 Telephone [facility]ICINE [address] [place], [place] [phone] Name, MD Terence [address] [place] [address] Durable Medical Equipment Social History Tobacco Use Types Packs/Day Years Used Date Smoking Tobacco: Every Day Cigarettes Smokeless Tobacco: Never Alcohol Use Standard Drinks/Week Comments Defer 0 [...] * Telephone Encounter - Patricia Godoy - 07/02/2025 3:30 PM EDT L&C requesting clinical notes, evidence of weight loss, labs, nutritional consult, etc to support the need for boost. in order for insurance to cover. If wish for pt to continue receiving boost, please addend note. Thank you * Telephone Encounter - Martín Junior - 06/27/2025 9:43 AM EDT Tc from pt was advised to request renewal for script for boost to be sent to [facility]. Please contact pt at [phone]. (Khmer Speaker) documented in this encounter Plan of Treatment Upcoming Encounters Date Type Department Care Team (Late st Contact Info) Description 10/02/2025 11:00 AM EST Office Visit [facility] [address] [place], [place] [phone] Unique Dennison, OD [address] [place] [address] documented as of this encounter Visit Diagnoses Not on filedocumented in this encounter Additional Health Concerns Assessment Noted Time PHQ-9 Depression Total Score: 14 024 2:43 PM EST documented as of this encounter Care Teams Per Assessment Nurse Relationship Specialty Start Date End Date Name, MD Terence [address] [place] [address] PCP - General Family Medicine 01/13/16 documented as of this encounter
--- OUTSIDE RECORDS SUMMARY | 2025-07-30 12:33 | XMS_ITS | Encounter Summary ---
Author Organization [employer] Address [address] [place] [address] 7t [place] [address] Care Team Providers Care Ultrasonic Cleaner Name Role Phone Name, Terence MARIA Primary Care Provider [phone] Reason for Visit * Reason Comments Med Refill Encounter Details Date Type Department Care Team ([facility] Contact Info) Description 07/09/2023 Refill [facility] [address] [place], [place] [phone] Cony Rodríguez, RYAN Anxiety Social History Tobacco Use Types Packs/Day [...] Upcoming Encounters Date Type Department Care Team ([facility] Contact Info) Description 10/02/2025 11:00 AM EST Office Visit [facility] OPT[facility] [address] [place] [address] TarUnique noel, OD [address] [place], [place] [phone] documented as of this encounter Visit Diagnoses Diagnosis Anxiety Anxiety state, unspecified documented in this encounter Additional Health Concerns Assessment Noted Time PHQ-9 Depression Total Score: 0 03/09/20 23 2:42 PM EDT documented as of this encounter Care Teams Ultrasonic Cleaner Relationship Specialty Start Date End Date Name, MD Terence [address] [place] [address] PCP - General Family Medicine 01/13/16 documented as of this encounter
--- OUTSIDE RECORDS SUMMARY | 2025-07-30 12:33 | XMS_ITS | Encounter Summary ---
Author Organization [employer] Address [address] [facility] [address] [place] [address] Care Team Providers Care Building And Grounds Supervisor Name Role Phone Name, Terence MARIA Primary Care Provider [phone] Encounter Details Date Type Department Care Team ([facility] st Contact Info) Description 11/08/2023 Orders Only [facility] [address] [place], [place] [phone] Ada Bridges RN Uncomplicated opioid dependence (CMS/HCC) Social History Tobacco Use Types Packs/Day Years Used Date Smoking Tobacco: Every Day Cigarettes Smokeless Tobacco: Never Depression Answer Date Recorded Patient Health Questionnaire-9 Score 0 03/09/2023 Housing Stability Answer Date Recorded What is your housing situation today? I do not have housing (Staying with others, in a hotel, in a alf, living outside on the street, on a [...] Upcoming Encounters Date Type Department Care Team ([facility] st Contact Info) Description 10/02/2025 11:00 AM EST Office Visit [facility] [address] [place], [place] [phone] TarUnique noel, OD [address] [place] [address] Scheduled Orders Name Type Priority Associated Diagnoses [...] with Reflexes Lab Routine Uncomplicated opioid dependence ([facility]) Expected: 11/08/2023 (Approximate), Expires: 11/08/2024 Syphilis Screen Lab Routine Uncomplicated opioid dependence ([facility]) Expected: 11/08/2023 (Approximate), Expires: 11/08/2024 T-SPOT .TB Lab Routine Uncomplicated opioid dependence ([facility]) Expected: 11/08/2023 (Approximate), Expires: 11/08/2024 documented as of this encounter Procedures Procedure Name Priority Date/Time Associated Diagnosis Comments THINPREP IMAGING PAP AND HPV MRNA E6/E7 WITH REFLEX TO HPV 16,18/45 Routine 04/17/2024 11:13 AM EDT Uncomplicated opioid dependence ([facility]) documented in this encounter Results * ThinPrep Imaging Pap and HPV mRNA E6/E7 with Reflex to HPV 16,18/45 (04/17/2024 11:13 AM EDT) HPV 16 RNA [facility] HPV 18/45 RNA [facility] HPV nRNA E6/E7 Not Detected Not Detected [facility] Comment:Methodology: Transcr iption-Mediated AmplificationThis assay detects E6/E7 viral messenger RNA (mRNA) from 14high-risk HPV types (16,18,31,33,35,39,45,51,52,56,58,59,66,68).Cervical sources are required for HPV testing.If a vaginal source from a patient who has had atotal hysterectomy with removal of cervix wassubmitted, please contact the testing laboratoryfor alternative testing options.For additional information, please refer [email or web address]/[email or web address](This link if provided for information/educational purposes only.)THIS TEST WAS PERFORMED AT:[facility] [place] [id number] DENT MD SOURCE: SEE NOTE [facility] Comment:Cervix Report Status: [facility] Clinical Information: SEE NOTE [facility] Comment:ROUTINE LMP: SEE NOTE [facility] Comment:NONE GIVEN Prev. PAP: SEE NOTE [facility] Comment:NONE GIVEN Prev. BX: SEE NOTE [facility] Comment:NONE GIVEN Statement Of Adequacy: SEE NOTE [facility] Comment:Satisfactory for flores luation.Endocervical/transformation zone componentpresent. General Categorization: [facility] Interpretation/Result: SEE NOTE [facility] Comment:Cytology Results: Ne gative for intraepitheliallesion or malignancy. Cytology Comment SEE NOTE [facility] Comment:This Pap test has be en evaluated with computerassisted technology. Quality Lab Technician: SEE NOTE [facility] Comment:YP, CT(ASCP)CT scree kaela location: [place] [address] Review Quality Lab Technician: [facility] Pathologist [facility] PAP Infection SEE NOTE [facility] Comment:Shift in vaginal leonard ra suggestive of bacterialvaginosis. See Note SEE NOTE [facility] Comment:EXPLANATORY NOTE:The Pap is a [...] AM EDT 04/17/2024 4:19 PM EDT Narrative [facility] - 04/25/2024 1:06 PM EDT SEE SCANNED RESULTS IN EMRRCEREVIX us Arin Palomino [facility] PATHOLOGY ORDERABLES Final Result [facility] [address] [place] [address] [phone] documented in this encounter Visit Diagnoses Diagnosis Uncomplicated opioid dependence (CMS/HCC) (H[facility]) documented in this encounter Additional Health Concerns Assessment Noted Time PHQ-9 Depression Total Score: 0 03/09/20 23 2:42 PM EDT documented as of this encounter Care Teams Building And Grounds Supervisor Relationship Specialty Start Date End Date Name, MD Terence [address] [place] [address] PCP - General Family Medicine 01/13/16 documented as of this encounter
--- OUTSIDE RECORDS SUMMARY | 2025-07-30 12:33 | XMS_ITS | Encounter Summary ---
Author Organization [employer] Address [address] [place] [address] 7 [place] [address] Care Team Providers Care Seasonal Package Handler Name Role Phone Name, Terence MARIA Primary Care Provider [phone] Reason for Visit * Reason Comments Med Refill Encounter Details Date Type Department Care Team ([facility] Contact Info) Description 12/21/[address] [facility] [address] [place] [address] Name, MD Terence [address] [place] [address] Anxiety Social History Tobacco Use Types Packs/Day [...] Upcoming Encounters Date Type Department Care Team ([facility] Contact Info) Description 10/02/2025 11:00 AM EST Office Visit [facility] OPT[facility] [address] [place] [address] Unique Dennison, OD [address] [place] [address] documented as of this encounter Visit Diagnoses Diagnosis Anxiety Anxiety state, unspecified documented in this encounter Care Teams Seasonal Package Handler Relationship Specialty Start Date End Date NameTerence MD [address] [place] [address] PCP - General Family Medicine 01/13/16 documented as of this encounter
--- OUTSIDE RECORDS SUMMARY | 2025-07-30 12:33 | XMS_ITS | Encounter Summary ---
Author Organization [employer] Address [address] [place] [address] [address] [place] [address] Care Team Providers Care Construction Safety Consultant Name Role Phone Name, Terence MARIA Primary Care Provider [phone] Reason for Visit * Reason Onset Date Comments VNA Orders 02/26/2023 Vitamin Deficiency 02/26/2023 Pt no show to hospital follow up appointment. Encounter Details Date Type Department Care Team ([facility] st Contact Info) Description 02/26/2023 Telephone [facility] MEDICINE [address] [place], [place] [phone] Name, MD Terence [address] [place] [address] VNA Orders; Vitamin Deficiency (Pt no show [...] 8:16 AM EDT Tc princess Urr[facility] VNA calling in regards to half-way [...] Description 10/02/2025 11:00 AM EST Office Visit [facility] OPTOMETRY [address] [place], [place] [phone] Unique Dennison, OD [address] [place] [address] documented as of this encounter Visit Diagnoses Not on filedocumented in this encounter Care Teams Construction Safety Consultant Relationship Specialty Start Date End Date Name, MD Terence [address] [place] [address] PCP - General Family Medicine 01/13/16 documented as of this encounter
--- OUTSIDE RECORDS SUMMARY | 2025-07-30 12:33 | XMS_ITS | Encounter Summary ---
Author Organization [employer] Address [address] [place] [address] Care Team Providers Care Business Process Architect Name Role Phone Name, Terence MARIA Primary Care Provider [phone] Encounter Details Date Type Department Care Team ([facility] st Contact Info) Description 08/30/2023 Telephone [facility] MEDICINE [address] [place], [place] [phone] Name, MD [employer]renec [address] [place], [place] [phone] Social History Tobacco Use Types Packs/Day Years Used Date Smoking Tobacco: Former Cigarettes Smokeless Tobacco: Never Depression Answer Date Recorded Patient Health Questionnaire-9 Score 0 03/09/2023 Housing Stability Answer Date Recorded What is your housing situation today? I do not have housing (Staying with others, in a hotel, in a skilled nursing, living outside on the street, on a [...] 03/09 PE notes to be faxed to [phone]. States she faxed a release form to medical records and has not received anything back. Any questions, please contact [email or web address] at [phone] documented in this encounter Plan of Treatment Upcoming Encounters Date Type Department Care Team (Late st Contact Info) Description 10/02/2025 11:00 AM EST Office Visit [facility] OPTOMETRY [address] [place], [place] [phone] Unique Dennison, OD [address] [place] [address] documented as of this encounter Visit Diagnoses Not on filedocumented in this encounter Additional Health Concerns Assessment Noted Time PHQ-9 Depression Total Score: 0 03/09/20 23 2:42 PM EDT documented as of this encounter Care Teams Business Process Architect Relationship Specialty Start Date End Date Name, MD Terence [address] [place] [address] PCP - General Family Medicine 01/13/16 documented as of this encounter
--- OUTSIDE RECORDS SUMMARY | 2025-07-30 12:33 | XMS_ITS | Clinical Summary ---
Author Organization [employer] Address [address] [place] [address] Care Team Providers Care Manager Assisted Living Name Role Phone Name, Terence MARIA Primary Care Provider [phone] Allergies No known active allergies Medications * This document contains information received from the source organization and may not represent a complete record from that organization. nitroglycerin (Nitro-Bid) 2 % ointment 12/24/19 21 Active naloxone (Narcan) 4 mg/0.1 mL nasal spray Administer 1 spray (4 mg) into affected nostril(s) if needed for opioid reversal. 2 each 1 03/04/20 23 Active albuterol (Ventolin HFA) 108 (90 Base) MCG/ACT inhalerIndicat ions:Chronic obstructive pulmonary disease, unspecified COPD type (CMS/HCC) (HCC) Inhale 2 puffs every 4 (four) hours if needed for wheezing. 18 g 3 01/06/20 25 Active naloxone (Narcan) 4 mg/0.1 mL nasal spray Administer 1 spray (4 mg) into affected nostril(s) if needed for opioid reversal. May repeat every 2-3 minutes if needed, alternating nostrils, until medical assistance becomes available. 2 each 03/16/20 25 026 Active cloNIDine (Catapres) 0.1 MG tablet Take 1 tablet (0.1 mg) by mouth 2 times daily. 60 tablet 11 07/30/20 25 026 Active cloNIDine (Catapres) 0.1 MG tablet Take 1 tablet (0.1 mg) by mouth 2 times daily. 60 tablet 11 05/30/20 25 025 Discontinued(R eorder (will not trigger notification to Pharmacy)) Active Problems Problem Noted Date Diagnosed Date Chronic midline low back pain 05/09/2025 Assessment & Plan (05/09/2025 6:12 PM EDT): In light of worsening lower back pain with acute area of tenderness and weakness of the legs I decided to order an MRI of the back I will prescribe prednisone for 7 days I will refer patient to taper and floater Strict ED precautions were reviewed with patient I let her know if symptoms are persistent or worse and if she develops any tingling, numbness worsening weakness, sphincter relaxation she will immediately have to go to the emergency room or call ambulance I advised patient to do her labs and then follow-up with PCP Condyloma 04/17/2024 Cigarette smoker 03/05/2023 Opioid dependence, uncomplicated (CMS/HCC) 03/04 Cocaine use 03/04/2023 Disorder of vein 10/31/2018 Urinary incontinence 09/23/2018 Migraine without aura, not refractory 01/24/2018 JUDE (generalized anxiety disorder) 08/19/2017 Raynaud's phenomenon 08/19/2017 Moderate major depression (CMS/HCC) 01/13/2016 Hepatitis C antibody test positive 01/13/2016 Joint pain 01/13/2016 Resolved Problems Problem Noted Date Diagnosed Date Resolved Date Nondependent opioid abuse 08/14/2016 Encounters * This document contains information received from the source organization and may not represent a complete record from that organization. Date Type Department Care Team Description 07/30/2025 11:15 AM EDT Office Visit [facility] [address] [place] [phone] NameTerence MD Moderate major depression (CMS/HCC) (HCC) (Primary Dx); JUDE (generalized anxiety disorder); Opioid dependence, uncomplicated (CMS/HCC) (HCC); Vaccine refused by patient; Arthralgia, unspecified joint; CAUSEY (dyspnea on exertion); Foot callus 07/30/2025 Travel 06/27/[address] [facility] [address] [place] [address] Terence Law MD Durable Medical Equipment 06/27/[address] [address] Terence Law MD Nurse Triage 05/30/2025 11:00 AM EDT Office Visit [address] [address] Terence Law MD Arthralgia, unspecified joint (Primary Dx); Raynaud's phenomenon without gangrene; Chronic pain of right knee; Chronic midline low back pain, unspecified whether sciatica present; Bilateral hand swelling; CAUSEY (dyspnea on exertion); Lung crackles; Osteopenia, unspecified location; Opioid dependence, uncomplicated (CMS/HCC); Blurred vision, bilateral 05/30/2025 Travel 05/29/2025 Results Follow-Up [address] [address] Kimi Briscoe MD MR Lumbar Spine w/o Contrast 05/23/2025 Patient Outreach [facility] [address] [place] [address] Terence Law MD Pre-visit Planning (SDOH was already completed) 05/11/2025 Results Follow-Up [address] [address] Kimi Briscoe MD CBC auto differential, Comprehensive Metabolic Panel, Hepatitis C Antibody with Reflex to HCV, RNA, Quantitative, Real-Time PCR, Additional followed-up results: 4 05/10/2025 Orders Only [address] [address] Terence Law MD 05/09/2025 5:20 PM EDT Office Visit [facility] [address] [place] [phone] Kimi Briscoe MD Chronic midline low back pain, unspecified whether sciatica present 05/09/2025 Travel 05/09/[address] [address] Terence Law MD 05/08/[address] [address] Terence Law MD Results 05/01/[address] [phone] Terence Law MD Referral from Last 3 Months Family History Medical [...] 16 07/30/2025 11:36 AM EDT Oxygen Saturation 94% 05/30/2025 11:21 AM EDT Inhaled Oxygen Concentration - - Weight 84 kg (185 lb 4 oz) 07/30/2025 11:36 AM E DT Height 157.5 cm (5' 2 ) 07/30/2025 11:36 AM EDT Body Mass Index 33.88 07/30/2025 11:36 AM EDT Plan of Treatment Upcoming Encounters Date Type Department Care Team (Late st Contact Info) Description 10/02/2025 11:00 AM EST Office Visit [facility] [address] [place], [place] [phone] Unqiue Dennison, OD [address] [place] [address] Health Maintenance Due Date Last Done Comments CT Colonography 1978 Colonoscopy 1978 Colorectal Cancer Screening 1978 FIT DNA/Cologuard 1978 FIT 1978 FOBT 1978 Lipid Panel 1978 Sigmoidoscopy 1978 Family Planning (PISQ) 1993 DTaP/Tdap/Td Vaccines (1 - Tdap) 1997 Hepatitis B Vaccines (1 of 3 - 19+ 3-dose series) 1997 Pneumococcal Vaccine: Pediatrics (0 to 5 Years) and At-Risk Patients (6 to 49) Years (1 of 2 - PCV) 1997 Mammogram 2018 Depression Monitoring 05/25/2024 11/25/2023 , 11/25/2023 COVID-19 Vaccine (1 - 2023-2 5 season) 2025 Influenza Vaccine (#1) 2025 Alcohol/Substance Use Screening 03/16/2026 03/16/2025 Disability Screening 03/16/2026 03/16/2025 SDOH Screening 03/16/2026 03/16/2025 Tobacco Screening 07/30/2026 07/30/2025 Zoster Vaccines (1 of 2) 2028 Cervical Cancer Screening 04/17/2029 HPV/Cotest 04/17/2029 04/17/2024 Pap Smear 04/17/2029 04/17/2024 RSV Patients and Patients Aged 60 years or older (1 - 1-dose 75+ series) 2053 HIV Screening Completed 05/10/2025 Hepatitis C Screening Completed 05/10/2025 , 05/10/2025 HIB Vaccines Aged Out No longer eligi [...] patient's age to complete this topic Meningococcal B Vaccine Aged Out No l onger eligible based on patient's age to complete [...] Procedure Name Priority Date/Time Associated Diagnosis Comments MR LUMBAR SPINE WO CONTRAST Routine 05/28/2025 10:30 AM EDT Chronic midline low back pain, unspecified whether sciatica present HEPATITIS C VIRAL RNA, QUANTITATIVE, REAL-TIME PCR Routine 05/10/2025 11:42 AM EDT DRUG MONITOR, PANEL 1, SCREEN, URINE Routine 05/10/2025 11:42 AM EDT Opioid dependence, uncomplicated (CMS/HCC) Chronic low back pain with sciatica, sciatica laterality unspecified, unspecified back pain laterality HEPATITIS B SURFACE ANTIBODY, QUALITATIVE Routine 05/10/2025 11:42 AM EDT Opioid dependence, uncomplicated (CMS/HCC) HEPATITIS B SURFACE ANTIGEN, EIA Routine 05/10/2025 11:42 AM EDT Opioid dependence, uncomplicated (CMS/HCC) RPR (MONITOR) W/REFL TITER Routine 05/10/2025 11:42 AM EDT Opioid dependence, uncomplicated (CMS/HCC) HIV 1/2 ANTIGEN/ANTIBODY, FOURTH GENERATION W/RFL Routine 05/10/2025 11:42 AM EDT Opioid dependence, uncomplicated (CMS/HCC) HEPATITIS C AB W/REFL TO HCV RNA, QN, PCR Routine 05/10/2025 11:42 AM EDT Opioid dependence, uncomplicated (CMS/HCC) COMPREHENSIVE METABOLIC PANEL Routine 05/10/2025 11:42 AM EDT Opioid dependence, uncomplicated (CMS/HCC) CBC WITH AUTO DIFFERENTIAL Routine 05/10/2025 11:42 AM EDT Opioid dependence, uncomplicated (CMS/HCC) THINPREP IMAGING PAP AND HPV MRNA E6/E7 WITH REFLEX TO HPV 16,18/45 Routine 04/17/2024 11:13 AM EDT Uncomplicated opioid dependence (CMS/HCC) from Last 3 Months or Most Recently Relevant to Health Maintenance Results * MR Lumbar Spine w/o Contrast (05/28/2025 10:30 AM EDT) Anatomical Region Laterality Modality Spine, L-spine Magnetic Resonan ce 05/28/2025 10:3 0 AM EDT Narrative 05/28/2025 11:53 AM EDT [place] [id number] Magnetic Resonance Report Signed Patient: Maddie Dobbins MR#: [id number] : 1980 Acct:[id number] Age/Sex: 44 / F ADM Date: 05/28/25 Loc: HO.MRI Attending Dr: Kimi Wiley MD Ordering Physician: Kimi Briscoe MD Date of Service: 05/28/25 Procedure(s): MR lumbar spine wo con Accession Number(s): [id number] cc: Kimi Briscoe MD; Name,Terence MARIA EXAMINATION: MR LUMBAR SPINE WITHOUT CONTRAST CLINICAL INFORMATION: Persistent low back pain. COMPARISON: None available. TECHNIQUE: MRI of the lumbar spine was obtained using routine sequences without contrast. FINDINGS: Last rib-bearing vertebra labeled T12. No bone marrow STIR signal abnormality. Bone marrow inhomogeneity. Grade 1 retrolisthesis L5-S1. Minimal marginal osteophyte formation L2-3, L3-4 and L4-5 levels. Conus medullaris and at inferior endplate of L1 with normal signal. T12-L1: No disc herniation. No neuroforamina stenosis. L1-2: No disc herniation. No neuroforamina stenosis. L2-3: Mild broad-based disc bulging. Facet joint hypertrophy. No compression upon neural elements. L3-4: Broad-based disc bulging. Facet joint hypertrophy. No compression upon neural elements. L4-5: Broad-based disc bulging. Facet joint and ligamentum flavum hypertrophy. Reduced AP diameter of the thecal sac and neuroforamina. No compression upon neural elements. L5-S1: Broad-based disc bulging. Grade 1 retrolisthesis. Facet joint hypertrophy. Reduced AP diameter of the thecal sac and neuroforamina likely pronounced on the left side. No prevertebral compartment hematoma, mass or fluid collection. MR/MR lumbar spine wo con IMPRESSION: Mild to moderate multilevel lumbar spondylosis pronounced at L5-S1 resulting in grade 1 retrolisthesis and left neuroforamina and narrowing. Concerning calcium metabolic disorder/osteopenia. Electronically signed by: Zac Clinton MD 05/28/2025 11:50 AM EDT Dictated By: Zac Donato MD Signed By: <Electronically signed by Zac Pierson MD in OV> 05/28/25 1150 DD/ 1030 TD/TT: 05/28/25 1100 Marine Cargo Specialist: Procedure Note Donotuseinterpreter, Image - 05/28/[address] [address] Magnetic Resonance Report Signed Patient: Maddie DobbinsMR#: [id number] : 1980Acct:[id number] Age/Sex: 44 / FADM Date: 05/28/25 Loc: HO.MRI Attending Dr: Kimi Wiley MD Ordering Physician: Kimi Briscoe MD Date of Service: 05/28/25 Procedure(s): MR lumbar spine wo con Accession Number(s): [id number] cc: Kimi Briscoe MD; Name,Terence MARIA EXAMINATION: MR LUMBAR SPINE WITHOUT CONTRAST CLINICAL INFORMATION: Persistent low back pain. COMPARISON: None available. TECHNIQUE: MRI of the lumbar spine was obtained using routine sequences without contrast. FINDINGS: Last rib-bearing vertebra labeled T12. No bone marrow STIR signal abnormality. Bone marrow inhomogeneity. Grade 1 retrolisthesis L5-S1. Minimal marginal osteophyte formation L2-3, L3-4 and L4-5 levels. Conus medullaris and at inferior endplate of L1 with normal signal. T12-L1: No disc herniation. No neuroforamina stenosis. L1-2: No disc herniation. No neuroforamina stenosis. L2-3: Mild broad-based disc bulging. Facet joint hypertrophy. No compression upon neural elements. L3-4: Broad-based disc bulging. Facet joint hypertrophy. No compression upon neural elements. L4-5: Broad-based disc bulging. Facet joint and ligamentum flavum hypertrophy. Reduced AP diameter of the thecal sac and neuroforamina. No compression upon neural elements. L5-S1: Broad-based disc bulging. Grade 1 retrolisthesis. Facet joint hypertrophy. Reduced AP diameter of the thecal sac and neuroforamina likely pronounced on the left side. No prevertebral compartment hematoma, mass or fluid collection. MR/MR lumbar spine wo con IMPRESSION: Mild to moderate multilevel lumbar spondylosis pronounced at L5-S1 resulting in grade 1 retrolisthesis and left neuroforamina and narrowing. Concerning calcium metabolic disorder/osteopenia. Electronically signed by: Zac Clinton MD 05/28/2025 11:50 AM EDT Dictated By: Zac Donato MD Signed By: <Electronically signed by Zac Pierson MDin OV> 05/28/25 1150 DD/ 1030 TD/TT: 05/28/25 1100 Marine Cargo Specialist: us Kimi Wiley MD IMG MRI PROCEDURES Fi nal Result * Hepatitis C Viral RNA, Quantitative, Real-Time PCR (05/10/2025 11:42 AM EDT) [facility] Hepatitis C Viral Load <15 NOT DETECTED NOT DETECTED IU/mL [facility] HCV Log PCR <1.18 NOT DETECTED NOT DETECTED Log IU/mL [facility] Comment:For additional infor tonyanalilia, please refer tohttp://education.[employer]/faq/FBE90o6(This link is being provided for informational/educational purposes only.)THIS TEST WAS PERFORMED AT:[facility] [place] [phone] DENT MD 05/10/2025 11:4 2 AM EDT 05/11/2025 1:19 PM EDT Terence Law MD LAB BLOOD ORDERABLES Final Resul t [facility] [address] [place] [address] [phone] * (ABNORMAL) Drug Monitoring, Panel 1, Screen, Urine (05/10/2025 11:42 AM EDT) [facility] Opiate Screen Urine POSITIVE(A) Not Detect [facility] Comment:Opiate cut-off is 30 0 ng/mL.Positive results are unconfirmed and should not be used fornon-medical purposes. Barbiturates, Urine Not Detected Not Detect [facility] Comment:Barbiturate cut-off is 200 ng/mL.Positive results are unconfirmed and should not be used fornon-medical purposes. Phencyclidine Screen Urine Not Detected Not Detect [facility] Comment:Phencyclidine cut-of f is 25 ng/mL.Positive results are unconfirmed and should not be used fornon-medical purposes. Amphetamine Screen Urine Not Detected Not Detect [facility] Comment:Amphetamine cut-off is 1000 ng/mL.Positive results are unconfirmed and should not be used fornon-medical purposes. Benzodiazepines Screen Urine Not Detected Not Detect [facility] Comment:Benzodiazepine cut-o ff is 200 ng/mL.Positive results are unconfirmed and should not be used fornon-medical purposes. Cocaine Screen Urine Not Detected Not Detect [facility] Comment:Cocaine cut-off is 3 00 ng/mL.Positive results are unconfirmed and should not be used fornon-medical purposes. Cannabinoid Screen Urine Not Detected Not Detect [facility] Comment:Cannabinoid cut-off is 50 ng/mL.Positive results are unconfirmed and should not be used fornon-medical purposes. Methadone Screen, Urine Not Detected Not Detect ng/mL [facility] Comment:Methadone cut-off is 300 ng/mL.Positive results are unconfirmed and should not be used fornon-medical purposes. FENTANYL URINE POSITIVE(A) Not Detect [facility] Comment:Fentanyl cut-off is 1 ng/mL.Positive results are unconfirmed and should not be used fornon-medical purposes. Oxycodone Urine Screen Not Detected Not Detect ng/mL [facility] Comment:Oxycodone cut-off is 100 ng/mL.Positive results are unconfirmed and should not be used fornon-medical purposes. Buprenorphine Screen Not Detected Not Detect ng/mL [facility] Comment:Buprenorphine cut-of f is 5 ng/mL.Positive results are unconfirmed and should not be used fornon-medical purposes. Urine (Urine, Random) 05/10/2025 11:42 AM EDT 05/10/2025 12:06 PM EDT us Terence Name LAB URINE ORDERABLES Final Resul t [facility] [address] [place] [address] [phone] * (ABNORMAL) CBC auto differential (05/10/2025 11:42 AM EDT) White Blood Count 7.2 4.8 - 10.8 X10*3/uL [facility] Red Blood Count 4.57 4.20 - 5.50 X10*6/uL [facility] Hemoglobin 12.6 12.0 - 16.0 g/dl [facility] Hematocrit 39.9 37.0 - 47.0 % [facility] Mean Corpuscular Volume 87.3 80.0 - 98.0 fL [facility] Mean Corpuscular Hemoglobin 27.6 27.0 - 33.0 pg [facility] Mean Corpuscular HGB Conc 31.6 31.0 - 35.0 g/dl [facility] Red Cell Distribution Width 15.0 11.0 - 16.0 % [facility] Platelet Count 207 160 - 400 X10*3/uL [facility] Mean Platelet Volume 10.5 9.4 - 12.3 fL [facility] Neutrophils Percent Auto 74.3(H) 45 - 73 % [facility] Imm Gran Pct Auto 0.4 0.0 - 0.4 % [facility] Lymphocytes Percent Auto 18.0(L) 20 - 40 % [facility] Monocytes Percent Auto 6.6 2 - 11 % [facility] Eosinophils Percent Auto 0.3 0 - 4 % [facility] Basophils Percent Auto 0.4 0 - 2 % [facility] NRBC Pct Auto 0.0 0.0 - 0.2 /100WBC [facility] Neutrophils Absolute Auto 5.3 2.0 - 8.3 x10*3/uL [facility] Imm Gran Abs Auto 0.03 0.00 - 0.03 X10*3/uL [facility] Lymphocytes Absolute Auto 1.3 1.2 - 4.9 X10*3/uL [facility] Monocytes Absolute Auto 0.5 0.1 - 1.2 X10*3/uL [facility] Eosinophils Absolute Auto 0.0 0.0 - 0.4 X10*3/uL [facility] Basophils Absolute Auto 0.0 0.0 - 0.2 X10*3/uL [facility] NRBC Abs Auto 0.000 0.0 - 0.012 X10*3/uL [facility] Blood Venous blood specimen / Unknown 05/10/2025 11:42 AM EDT 05/10/2025 11:42 AM EDT us Terence Law MD LAB BLOOD ORDERABLES Final Resul t Performing Organization Address [facility] de Phone Number [facility] [address] [place] [phone] * (ABNORMAL) Hepatitis C Antibody with Reflex to HCV, RNA, Quantitative, Real- Time PCR (05/10/2025 11:42 AM EDT) Hepatitis C Antibody Reactive( A) Nonreactive [facility] Comment:Presumptive evidence of antibodies to HCV. Blood Venous blood specimen / Unknown 05/10/2025 11:42 AM EDT 05/10/2025 11:42 AM EDT us Terence Law MD LAB BLOOD ORDERABLES Final Resul t Performing Organization Address [facility] Phone Number [facility] [address] [place] [phone] * Hepatitis B surface antigen, EIA (05/10/2025 11:42 AM EDT) Pathologist [facility] Hepatitis B Surface Ag Negative Negative [facility] Blood Venous blood specimen / Unknown 05/10/2025 11:42 AM EDT 05/10/2025 11:42 AM EDT us Terence Law MD LAB BLOOD ORDERABLES Final Resul t Performing Organization Address [facility] de Phone Number [facility] [address] [place] [phone] * RPR (Monitor) with Reflex to??Titer (05/10/2025 11:42 AM EDT) Pathologist [facility] RPR (Monitor) w/Refl Titer NON-REACTI VE NON-REACT RUMA [facility] Comment:THIS TEST WAS PERFOR MED AT:[facility] [place] [phone] DENT MD Rapid Plasma Reagin Ab Titer TNP [facility] Blood Venous blood specimen / Unknown 05/10/2025 11:42 AM EDT 05/10/2025 11:42 AM EDT us Terence Law MD LAB BLOOD ORDERABLES Final Resul t Performing Organization Address [facility]/ZIP Co de Phone Number [facility] [address] [place] [address] [phone] * HIV-1/2 Antigen and Antibodies, Fourth Generation, with Reflexes (05/10/2025 11:42 AM EDT) HIV AB/AG Nonreactive Nonreactive [facility] Comment:HIV-1 p24 Ag and/or HIV-1/HIV-2 Ab not detected.A test result that is nonreactive does not exclude thepossibility of exposure to or infection with HIV-1 and/orHIV-2. Nonreactive results in this assay for individualswith prior exposure to HIV-1 and/or HIV-2 may be due toantigen and antibody levels that are below the limit ofdetection of this assay.The [employer] HIV Ag/Ab Combo assay result andsupplemental assay results should be interpreted inconjunction with the patient's clinical presentation,history and other laboratory results. If the results areinconsistent with clinical evidence, additional testing issuggested to confirm the result. Blood Venous blood specimen / Unknown 05/10/2025 11:42 AM EDT 05/10/2025 11:42 AM EDT us Terence Law MD LAB BLOOD ORDERABLES Final Resul t Performing Organization Address City/[facility]/ZIP Co de Phone Number [facility] [address] [place] [phone] [phone] * Hepatitis B Surface Antibody, Qualitative (05/10/2025 11:42 AM EDT) ~Hepatitis B Surface Antibody NONREACTIVE Nonreactive [facility] Comment:Nonreactive: < 8.00 mIU/mL Blood Venous blood specimen / Unknown 05/10/2025 11:42 AM EDT 05/10/2025 11:42 AM EDT us Terence Law MD LAB BLOOD ORDERABLES Final Resul t [facility] [address] [place], [place] [phone] * (ABNORMAL) Comprehensive Metabolic Panel (05/10/2025 11:42 AM EDT) Sodium 138 135 - 145 mmol/L [facility] Potassium 3.7 3.3 - 5.1 mmol/L [facility] Chloride 106 96 - 108 mmol/L [facility] Carbon Dioxide 25 22 - 29 mmol/L [facility] Anion Gap 11(L) 12 - 20 [facility] Urea Nitrogen (BUN) 6(L) 9 - 16 mg/dL [facility] Creatinine, Serum 0.68 0.5 - 1.4 mg/dL [facility] Estimated Glomerular Filt Rate >60 [facility] Comment:Chronic Kidney Disea se: Estimated GFR < 60 mL/min/1.53b0Sjtdmo Kidney Disease: Estimated GFR < 15 mL/min/1.73m2 Glucose 106 60 - 115 mg/dL [facility] Calcium 9.1 8.4 - 10.2 mg/dL [facility] Bilirubin, Total 0.2 0.0 - 1.0 mg/dL [facility] Aspartate Amino Transferase 29 5 - 31 U/L [facility] Alanine Aminotransferase 15 0 - 31 U/L [facility] Total Protein 8.6(H) 6.5 - 8.0 g/dL [facility] Albumin Level 3.6 3.5 - 5.0 g/dL [facility] Alkaline Phosphatase 97 39 - 117 U/L [facility] Blood Venous blood specimen / Unknown 05/10/2025 11:42 AM EDT 05/10/2025 11:42 AM EDT us Terence Law MD LAB BLOOD ORDERABLES Final Resul t [facility] [address] [place] [phone] * ThinPrep Imaging Pap and HPV mRNA E6/E7 with Reflex to HPV 16,18/45 (04/17/2024 11:13 AM EDT) HPV 16 RNA [facility] HPV 18/45 RNA [facility] HPV nRNA E6/E7 Not Detected Not Detected [facility] Comment:Methodology: Transcr iption-Mediated AmplificationThis assay detects E6/E7 viral messenger RNA (mRNA) from 14high-risk HPV types (16,18,31,33,35,39,45,51,52,56,58,59,66,68).Cervical sources are required for HPV testing.If a vaginal source from a patient who has had atotal hysterectomy with removal of cervix wassubmitted, please contact the testing laboratoryfor alternative testing options.For additional information, please refer tohttp://education.[employer]/faq/EIB692c3(This link if provided for information/educational purposes only.)THIS TEST WAS PERFORMED AT:[facility] [place] [phone] DENT MD SOURCE: SEE NOTE [facility] Comment:Cervix Report Status: [facility] Clinical Information: SEE NOTE [facility] Comment:ROUTINE LMP: SEE NOTE [facility] Comment:NONE GIVEN Prev. PAP: SEE NOTE [facility] Comment:NONE GIVEN Prev. BX: SEE NOTE [facility] Comment:NONE GIVEN Statement Of Adequacy: SEE NOTE [facility] Comment:Satisfactory for flores luation.Endocervical/transformation zone componentpresent. General Categorization: [facility] Interpretation/Result: SEE NOTE [facility] Comment:Cytology Results: Ne gative for intraepitheliallesion or malignancy. Cytology Comment SEE NOTE [facility] Comment:This Pap test has be en evaluated with computerassisted technology. [employer] Application Developer: SEE NOTE [facility] Comment:YP, CT(ASCP)CT yeny [place] location: [place] [address] Review J2E[employer] Application Developer: [facility] Pathologist [facility] PAP Infection SEE NOTE [facility] Comment:Shift in vaginal leonard ra suggestive of bacterialvaginosis. See Note SEE NOTE [facility] Comment:EXPLANATORY NOTE:The Pap is [...] EDT 04/17/2024 4:19 PM EDT Narrative [facility] - 04/25/2024 1:06 PM EDT SEE SCANNED RESULTS IN EMRRCEREVIX us Arin Palomino [facility] PATHOLOGY ORDERABLES Final Result [facility] [address] [place] [address] [phone] from Last 3 Months or Most Recently Relevant to Health Maintenance Insurance [facility] C3 * Guarantor: Maddie Dobbins Account Type Relation to Patient Date of Phone Billing Address Personal/Family Self [address] [place] Care Teams Manager Assisted Living Relationship Specialty Start Date End Date Name, MD Terence [address] [place] [address] [place] [address] PCP - General Family Medicine 01/13/16
--- OUTSIDE RECORDS SUMMARY | 2025-07-30 12:33 | XMS_ITS | Encounter Summary ---
Author Organization [employer] Address [address] [place] [address] Care Team Providers Care Managing Consultant Clinical Professor Name Role Phone Name, Terence MARIA Primary Care Provider [phone] Encounter Details Date Type Department Care Team (Latest Contact Info) Description 07/30/2025 Travel Social History Tobacco Use Types Packs/Day Years Used Date Smoking Tobacco: Every Day Cigarettes Passive Smoke Exposure: Current Smokeless Tobacco: Current Alcohol Use Standard Drinks/Week Comments Defer 0 [...] AM EDT documented as of this encounter Functional Status * Over the [...] Felician[place] documented as of this encounter Plan of Treatment Upcoming Encounters Date Type Department Care Team (Late st Contact Info) Description 10/02/2025 11:00 AM EST Office Visit [facility] [address] [place] [address] Unique Dennison, OD [address] [place] [address] documented as of this encounter Visit Diagnoses Not on filedocumented in this encounter Additional Health Concerns Assessment Noted Time PHQ-9 Depression Total Score: 14 024 2:43 PM EST documented as of this encounter Care Teams Managing Consultant Clinical Professor Relationship Specialty Start Date End Date Name, MD Terence [address] [place] [address] PCP - General Family Medicine 01/13/16 documented as of this encounter
--- OUTSIDE RECORDS SUMMARY | 2025-07-30 12:33 | XMS_ITS | Encounter Summary ---
Author Organization [employer] Address [address] [facility] [address] [place] [address] Care Team Providers Care Teaching Music Lessons Name Role Phone Name, Terence MARIA Primary Care Provider [phone] Reason for Visit * Reason Onset Date Comments Appointment Request 11/28/2024 Encounter Details Date Type Department Care Team ([facility] st Contact Info) Description 11/28/2024 Telephone [facility] [address] [place], [place] [id number] Name, MD Terence [address] [place], [place] [id number] Appointment Request Social History Tobacco Use Types [...] pt requesting schedule f/up appt with pcp. [phone] st lucian documented in this encounter Plan of Treatment Upcoming Encounters Date Type Department Care Team (Late st Contact Info) Description 10/02/2025 11:00 AM EST Office Visit [facility] [address] [place] [address] TarUnique noel, OD [address] [place] [address] documented as of this encounter Visit Diagnoses Not on filedocumented in this encounter Additional Health Concerns Assessment Noted Time PHQ-9 Depression Total Score: 14 024 2:43 PM EST documented as of this encounter Care Teams Teaching Music Lessons Relationship Specialty Start Date End Date Name, MD Terence [address] [place] [address] PCP - General Family Medicine 01/13/16 documented as of this encounter
== END 2025-07-30 12:30 | disposition home or self-care (01) ==
LOC: HO.HHCX 12:29
PROVIDERS: Visit Provider Internal Medicine Geriatric Medicine
DX: M25.561 Pain in right knee (principal); G89.29 Other chronic pain; R09.89 Other specified symptoms and signs involving the circulatory and respiratory systems; R06.09 Other forms of dyspnea
CPT/HCPCS: 71046; 73562

== ENCOUNTER → 2025-07-30 12:30 | Outpatient (BNV) | payer MEDICAID, SELFPAY | PROVIDERS: Visit Provider Radiology Diagnostic Radiology | DX: J98.11 Atelectasis (principal); J84.9 Interstitial pulmonary disease, unspecified; M17.11 Unilateral primary osteoarthritis, right knee | CPT/HCPCS: 71046; 73562 ==